=== PATIENT | female | born 1965 | race Two or more races ===

== ENCOUNTER 2020-10-09 09:15 | Emergency (ER) | payer MEDICAID, SELFPAY ==
[2020-10-09 09:21] VITALS: BP 136/70; PULSE 83; RESP 17; TEMP 36.7; O2SAT 95; BMI 37.8
--- NOTE | 2020-10-09 09:49 | ED.SKABFB ---
HPI - Skin/Abscess/Foreign Bdy General Chief complaint: Skin/Abscess/Foreign Body Stated complaint: cyst on leg Time Seen by Provider: 10/09/20 09:48 History of Present Illness HPI narrative: Patient complains of right thigh abscess with redness and swelling for several days, no fever no chills no joint pain Related Data Previous Rx's Medication Instructions Recorded doxycycline hyclate 100 mg PO BID 7 Days #14 cap 10/09/20 Allergies Allergy/AdvReac Type Severity Reaction Status Date / Time No Known Allergies Allergy Unverified 07/14/20 15:33 Pt states no known allergy to Allergy Unknown Uncoded 09/04/18 00:00 Review of Systems Review of Systems: No fever no chills no weakness no dizziness, no chest pain no abdominal pain no dysuria Yes all other systems are reviewed and are negative [facility] Past Medical History Source: nursing notes reviewed Medical History (Updated 10/09/20 @ 10:43 by SIOMARA Ricardo) Diabetes 1.5, managed as type 1 High blood pressure Social History Social History Advance Directives: No Advance Directives Information Provided: No Physical Exam Vital Signs: Vital Signs: Last Vital Signs Temp 98.0 F 10/09/20 09:21 Pulse 83 10/09/20 09:21 Resp 17 10/09/20 09:21 BP 136/70 10/09/20 09:21 Pulse Ox 95 10/09/20 09:21 Body Mass Index 37.8 Patient is A&O x3, no acute distress, cooperative Normocephalic atraumatic Neck is supple Respiratory no distress Abdomen soft nontender Extremity exam there is a red fluctuant cyst on the right upper inner thigh which is tender to the touch without surrounding redness, no surrounding cellulitis, skin is intact there is no discharge from the wound, there is full range of motion in the hip and the knee, neurovascular intact distal Course Course Course Narrative: Right thigh abscess is cleansed with Betadine Anesthesia is 8 cc of 1% lidocaine without epi A small incision was made with discharge of pus and packing was placed and dressing was applied Discharge Plan Discharge Clinical Impression: Abscess of skin or subcutaneous tissue Qualifiers: Site of cutaneous abscess: extremity Site of cutaneous abscess of extremity: lower extremity Laterality: right Qualified Code(s): L02.415 - Cutaneous abscess of right lower limb Patient Disposition: Home, Self-Care Additional Instructions: Return to ER in 2 days for packing removal and wound check Return any time for spreading redness, worse pain and swelling, fever, any worse condition or any concerns Prescriptions: New doxycycline hyclate 100 mg capsule 100 mg PO BID 7 Days Qty: 14 RF: 0
[2020-10-09] MEDS: Lidocaine HCl 1 % MPF 5 ML VIAL SUBCUT ×2 (10:01→10:02)
== END 2020-10-09 10:54 | disposition home or self-care (01) ==
PROVIDERS: Emergency Provider Emergency Medicine; PCP Family Medicine
DX: L02.415 Cutaneous abscess of right lower limb (principal); M79.651 Pain in right thigh
CPT/HCPCS: 10060; 99283; 99284

== ENCOUNTER 2020-10-11 08:32 | Emergency (ER) | payer MEDICAID, SELFPAY ==
[2020-10-11 08:40] VITALS: BP 99/69; PULSE 70; RESP 16; TEMP 36.6; O2SAT 97; BMI 37.8
--- NOTE | 2020-10-11 08:52 | PC.NURSE ---
ambulatory with steady/slow gait/movements, changing in to hospital gown for exam
--- NOTE | 2020-10-11 09:42 | ED.SKABFB ---
HPI - Skin/Abscess/Foreign Bdy General Chief complaint: Skin/Abscess/Foreign Body <Esther Lim NP - Last Filed: 10/11/20 09:44> Stated complaint: wound check <Esther Lim NP - Last Filed: 10/11/20 09:44> Time Seen by Provider: 10/11/20 09:19 <Esther Lim NP - Last Filed: 10/11/20 09:44> Source: patient <Esther Lim NP - Last Filed: 10/11/20 09:44> Mode of arrival: ambulatory <Esther Lim NP - Last Filed: 10/11/20 09:44> Limitations: no limitations <Esther Lim NP - Last Filed: 10/11/20 09:44> History of Present Illness HPI narrative: Pt seen here 2 days ago for I& D of an abscess. She had packing placed. She was started on doxycycline. She returns today for packing removal. No complaints. No fevers or chills. Patient is feeling improved. <Esther Lim NP - Last Filed: 10/11/20 09:44> MD complaint: abscess/boil <Esther Lim NP - Last Filed: 10/11/20 09:44> Onset (ago): day(s) <GILL Castillo Last Filed: 10/11/20 09:44> Tetanus up to date: yes <GILL Castillo Last Filed: 10/11/20 09:44> Location: generalized (Right groin) <GILL Castillo Last Filed: 10/11/20 09:44> Severity: mild <GILL Castillo Last Filed: 10/11/20 09:44> Associated symptoms: denies other symptoms <GILL Castillo Last Filed: 10/11/20 09:44> Treatments prior to arrival: none <GILL Castillo Last Filed: 10/11/20 09:44> Related Data Home medications: Previous Rx's Medication Instructions Recorded doxycycline hyclate 100 mg PO BID 7 Days #14 cap 10/09/20 <Esther Lim NP - Last Filed: 10/11/20 09:44> Allergies/Adverse reactions: Allergies Allergy/AdvReac Type Severity Reaction Status Date / Time No Known Allergies Allergy Unverified 07/14/20 15:33 Pt states no known allergy to Allergy Unknown Uncoded 09/04/18 00:00 <Esther Lim NP - Last Filed: 10/11/20 09:44> Review of Systems Review of Systems: Yes all other systems are reviewed and are negative <GILL Castillo Last Filed: 10/11/20 09:44> Constitutional: Constitutional: Reports no additional constitutional complaints, Denies body ache(s), Denies chills, Denies fever(s), Denies headache(s) and Denies weakness <GILL Castillo Last Filed: 10/11/20 09:44> Eyes: Eyes: Reports no additional eye complaints and Denies change in vision <Esther Lim NP - Last Filed: 10/11/20 09:44> ENT: Reports system reviewed and no additional complaints, except as documented, Denies dizziness, Denies headache(s), Denies nasal congestion, Denies nasal discharge and Denies neck pain <GILL Castillo Last Filed: 10/11/20 09:44> Cardiovascular: Cardiovascular: Reports no additional cardiovascular complaints, Denies chest pain, Denies leg edema and Denies dyspnea <GILL Castillo Last Filed: 10/11/20 09:44> Respiratory: Respiratory: Reports no additional respiratory complaints, Denies cough and Denies dyspnea <Esther Lim NP - Last Filed: 10/11/20 09:44> Gastrointestinal: Gastrointestinal: Reports no additional gastrointestinal complaints, Denies abdominal pain, Denies diarrhea, Denies nausea and Denies vomiting <Esther Lim NP - Last Filed: 10/11/20 09:44> Genitourinary: Genitourinary: Reports no additional female genitourinary complaints and Denies urinary incontinence <Esther Lim NP - Last Filed: 10/11/20 09:44> Musculoskeletal: Musculoskeletal: Reports no additional musculoskeletal complaints, Denies back pain, Denies arthralgias, Denies joint swelling, Denies neck pain, Denies numbness and Denies tingling <Esther Lim NP - Last Filed: 10/11/20 09:44> Integumentary/Breasts: Skin/Breast: Reports system reviewed and no additional complaints, except as docu and Denies rash <Esther Lim NP - Last Filed: 10/11/20 09:44> Neurologic: Reports system reviewed and no additional complaints, except as documented, Denies Abnormal speech present, Denies dizziness, Denies headache(s), Denies numbness, Denies tingling and Denies weakness <Esther Lim NP - Last Filed: 10/11/20 09:44> PMF Past Medical History Attestation statement: The following information was validated with the patient. <Esther Lim NP - Last Filed: 10/11/20 09:44> Source: old records reviewed and nursing notes reviewed <Esther Lim NP - Last Filed: 10/11/20 09:44> Medical History: Medical History Diabetes 1.5, managed as type 1 High blood pressure <Esther Lim NP - Last Filed: 10/11/20 09:44> Social History Social History: Social History Advance Directives: No Advance Directives Information Provided: No <Esther Lim NP - Last Filed: 10/11/20 09:44> Physical Exam Vital Signs: Vital Signs: Last Vital Signs Temp 97.9 F 10/11/20 08:40 Pulse 70 10/11/20 08:40 Resp 16 10/11/20 08:40 BP 99/69 10/11/20 08:40 Pulse Ox 97 10/11/20 08:40 Body Mass Index 37.8 <Esther Lim NP - Last Filed: 10/11/20 09:44> Vital Signs: Last Vital Signs Temp 97.9 F 10/11/20 08:40 Pulse 70 10/11/20 08:40 Resp 16 10/11/20 08:40 BP 99/69 10/11/20 08:40 Pulse Ox 97 10/11/20 08:40 Body Mass Index 37.8 <Thony Verdugo MD - Last Filed: 10/21/20 16:40> Const: General: cooperative, healthy appearing, comfortable and no acute distress <Esther Lim NP - Last Filed: 10/11/20 09:44> Orientation/consciousness: patient oriented x3 <Esther Lim NP - Last Filed: 10/11/20 09:44> Limitations: no limitations <Esther Lim NP - Last Filed: 10/11/20 09:44> HENMT: Head: Yes normal to inspection <Esther Lim NP - Last Filed: 10/11/20 09:44> Ears: hearing grossly normal bilaterally <Esther Lim NP - Last Filed: 10/11/20 09:44> General nose exam: Normal external nose present <Esther Lmi NP - Last Filed: 10/11/20 09:44> Face and sinus: Yes normal facial exam <Esther Lim NP - Last Filed: 10/11/20 09:44> Mouth: Normal oral and palatal mucosa present <Esther Lim NP - Last Filed: 10/11/20 09:44> Throat: Yes posterior oropharynx normal <Esther Lim NP - Last Filed: 10/11/20 09:44> Eyes: General: appearance normal, both eyes and all related structures <Esther Lim NP - Last Filed: 10/11/20 09:44> Pupils: Equal, round and reactive pupils present <Esther Lim NP - Last Filed: 10/11/20 09:44> Neck: Neck: Yes normal visual inspection <Esther Lim NP - Last Filed: 10/11/20 09:44> Chest: Chest palpation & inspection: normal inspection of the chest <Esther Lim NP - Last Filed: 10/11/20 09:44> Resp: Effort & Inspection: normal respiratory effort <Esther Lim NP - Last Filed: 10/11/20 09:44> Auscultation: clear to auscultation bilaterally <Esther Lim NP - Last Filed: 10/11/20 09:44> Cardio: Rate: regular rate <Esther Lim NP - Last Filed: 10/11/20 09:44> Rhythm: regular rhythm <Esther Lim NP - Last Filed: 10/11/20 09:44> Peripheral pulses: Peripheral pulses 2+ throughout <Esther Lim NP - Last Filed: 10/11/20 09:44> GI: Inspection: Yes normal to inspection <Esther Lim NP - Last Filed: 10/11/20 09:44> Palpation (GI): Soft to palpation and nontender <Esther Lim NP - Last Filed: 10/11/20 09:44> Auscultation: normal bowel sounds <Esther Lim NP - Last Filed: 10/11/20 09:44> Back/Spine/Pelvis: Thoracic/Lumbar Spine: thoracic and lumbar spine normal to inspection <Esther Lim NP - Last Filed: 10/11/20 09:44> Skin: Other: To the right upper inner groin there is a healing abscess. There is some mild surrounding erythema with no drainage able to be expressed. There is no induration. <Esther Lim NP - Last Filed: 10/11/20 09:44> General skin exam: no rashes or lesions noted <Esther Lim NP - Last Filed: 10/11/20 09:44> Neuro: General: patient oriented x3, no focal motor deficits and normal sensation to monofilament <Esther Lim NP - Last Filed: 10/11/20 09:44> Cranial nerves: Yes Equal, round and reactive pupils present <Esther Lim NP - Last Filed: 10/11/20 09:44> Cognition (Neuro): normal cognition <Esther Lim NP - Last Filed: 10/11/20 09:44> Speech: No Abnormal speech present <GILL Castillo Last Filed: 10/11/20 09:44> Gait exam (Neuro): Normal gait present <Esther Lim NP - Last Filed: 10/11/20 09:44> Motor exam (neuro): 5/5 motor strength present throughout <GILL Castillo Last Filed: 10/11/20 09:44> Extrem: General: Yes normal to inspection <GILL Castillo Last Filed: 10/11/20 09:44> Course Course Course Narrative: Healing abscess. Packing removed. Patient to continue her antibiotics. Reviewed worrisome signs and symptoms and when to return to the emergency department. Comfortable discharge home. <IGLL Castillo Last Filed: 10/11/20 09:44> I have reviewed the chart <Thony Verdugo MD - Last Filed: 10/21/20 16:40> Procedures Procedure Narrative Procedure Narrative: Packing removed from abscess. Mild erythema and induration noted to the site. No fluctuance or drainage. <GILL Castillo Last Filed: 10/11/20 09:44> Discharge Plan Discharge Clinical Impression: Abscess of skin or subcutaneous tissue <GILL Castillo Last Filed: 10/11/20 09:44> Patient Disposition: Home, Self-Care <GILL Castillo Last Filed: 10/11/20 09:44> Instructions: Abscess Follow-up (ED) <GILL Castillo Last Filed: 10/11/20 09:44> Additional Instructions: Continue your antibiotics Remove dressing tonight when showering and wash with soap and water You may apply a bandaid after that <GILL Castillo Last Filed: 10/11/20 09:44> Prescriptions: No Action doxycycline hyclate 100 mg capsule 100 mg PO BID 7 Days Qty: 14 RF: 0 <GILL Castillo Last Filed: 10/11/20 09:44> Referrals: Nahomy Patino DO [Primary Care Provider] - 2 days <Esther Lim NP - Last Filed: 10/11/20 09:44> Interventions: ED Discharge Assessment Last Done: 10/11/20 09:29 <Esther Lim NP - Last Filed: 10/11/20 09:44> Discharge Date/Time: 10/11/20 09:25 <Esther Lim NP - Last Filed: 10/11/20 09:44>
== END 2020-10-11 09:25 | disposition home or self-care (01) ==
PROVIDERS: Emergency Provider Emergency Medicine; PCP Family Medicine
DX: L02.214 Cutaneous abscess of groin (principal); Z48.00 Encounter for change or removal of nonsurgical wound dressing
CPT/HCPCS: 99284

== ENCOUNTER → 2020-12-20 12:52 | Outpatient (BNVA) | payer MEDICAID, SELFPAY | PROVIDERS: PCP Family Medicine; Visit Provider Orthopaedic Surgery | DX: M22.2X2 Patellofemoral disorders, left knee (principal); M22.2X1 Patellofemoral disorders, right knee | CPT/HCPCS: 20610; 99202; J1040 ==

== ENCOUNTER → 2021-01-02 13:28 | Outpatient (BNVA) | payer MEDICAID, SELFPAY | PROVIDERS: PCP Family Medicine; Visit Provider Nurse Practitioner Family | DX: M53.3 Sacrococcygeal disorders, not elsewhere classified (principal); M47.27 Other spondylosis with radiculopathy, lumbosacral region; Z79.899 Other long term (current) drug therapy | CPT/HCPCS: 99202 ==

== ENCOUNTER 2021-01-18 12:43 | Outpatient (REF) | payer MEDICAID, SELFPAY ==
--- NOTE | ~2021-01-18 | MR_ITS ---
EXAMINATION: MR LUMBAR SPINE WITHOUT CONTRAST CLINICAL INFORMATION: 55-year-old with chronic low back and bilateral leg pain, left more than right. Spondylosis with radiculopathy, lumbosacral region. COMPARISON: 05/27/2018 TECHNIQUE: MRI of the lumbar spine was obtained using routine sequences without contrast. FINDINGS: CORONAL ALIGNMENT:?Slight lower lumbar levocurvature noted. SAGITTAL ALIGNMENT:?Normal. LUMBOSACRAL JUNCTION:?Normal. VERTEBRAL BODIES: Normal height. BONE MARROW: No significant marrow-replacing process or bone marrow edema. CONUS MEDULLARIS:?Terminates at L1.?Morphology and signal is normal. INTRADURAL NERVE ROOTS: Within normal limits. L5-S1: Disc space height and signal are well maintained with no significant disc bulge. Subtle right-sided foraminal disc osteophyte complex stable in appearance with labl-rr-[id number] facet arthropathy, right more than left unchanged with mild right-sided foraminal narrowing without significant canal stenosis stable in appearance. L4-L5: Disc space height is well maintained with minimal disc desiccation stable in appearance. Tiny left subarticular disc protrusion stable in appearance. Small inferior foraminal disc protrusion without neural impingement, which is a new finding. Moderate right-sided and mild left-sided facet arthropathy and mild ligamentum flavum thickening is stable in appearance without significant canal or neural foraminal stenosis. L3-L4: Fdlm-gv-ofepaspb loss of disc space height and mild disc desiccation are again noted with minor anterior marginal spondylosis. Mild left lateral foraminal/extraforaminal disc protrusion again noted which contacts the exiting left L3 nerve root unchanged with associated moderate left-sided foraminal stenosis stable in appearance. Small inferior foraminal disc protrusion on the right at this level is a new finding without neural impingement. Timx-de-ibvsicqy bilateral facet arthropathy is stable without significant canal stenosis. Mild right-sided foraminal stenosis is noted on current study. L2-L3: Disc space height and signal are well maintained with no significant disc bulge or herniation and no significant spondylosis, facet arthrosis, canal or neural foraminal stenosis stable in appearance. L1-L2: Disc space height and signal well maintained without significant disc bulge or herniation and no significant spondylosis, facet arthrosis, canal or neural foraminal stenosis. PARASPINAL/RETROPERITONEAL: The paravertebral soft tissues appear unremarkable. MR/MR lumbar spine wo con IMPRESSION: 1. Stable discogenic degenerative changes at L3-L4 and to a lesser degree at L4-L5 with stable mild degrees of spondylosis at these levels and stable multilevel facet arthropathy. 2. Small right foraminal disc osteophyte complex at L5-S1 without neural impingement unchanged. Tiny left subarticular disc protrusion at L4-L5 unchanged in appearance and a new inferior foraminal disc protrusion on the right at this level with new mild foraminal narrowing without neural impingement. 3. Left lateral foraminal/extraforaminal disc protrusion at L3-L4 stable in appearance with moderate associated left-sided foraminal narrowing which contacts the exiting left L3 nerve root unchanged and a new inferior foraminal disc protrusion on the right at this level with mild right-sided foraminal narrowing without neural impingement.
== END 2021-01-18 12:44 | disposition home or self-care (01) ==
LOC: HO.MRI 12:43
PROVIDERS: Visit Provider Anesthesiology
DX: M47.27 Other spondylosis with radiculopathy, lumbosacral region (principal)
CPT/HCPCS: 72148

== ENCOUNTER → 2021-02-14 15:20 | Outpatient (BNVA) | payer MEDICAID, SELFPAY | PROVIDERS: PCP Family Medicine; Visit Provider Nurse Practitioner Family ==

== ENCOUNTER 2021-03-14 06:58 | Outpatient (REF) | payer MEDICAID, SELFPAY ==
--- NOTE | ~2021-03-14 | FL_ITS ---
EXAMINATION: XR FLUOROSCOPY WITH IMAGES CLINICAL INFORMATION: M47.816 - Spondylosis without myelopathy or radiculopathy COMPARISON: MR lumbar spine TECHNIQUE: Fluoroscopy performed by Mary Eid NP. Fluoroscopy time: 0.8 minutes DAP: 12.7 Gycm2 Images: 6 FINDINGS: There are spinal needles overlying the outer aspects of the bilateral L3, L4, and L5 neural foramen. Contrast is seen in the respective nerve sheaths with some transforaminal epidural extension. No visible vascular communication. FL/FL guidance in treatment room IMPRESSION: Fluoroscopy for pain management procedures.
== END 2021-03-14 06:59 | disposition home or self-care (01) ==
LOC: HO.RADIR 06:58
PROVIDERS: Visit Provider Anesthesiology
DX: M47.816 Spondylosis without myelopathy or radiculopathy, lumbar region (principal); M53.3 Sacrococcygeal disorders, not elsewhere classified; M47.27 Other spondylosis with radiculopathy, lumbosacral region; Z79.899 Other long term (current) drug therapy
CPT/HCPCS: 64493; 64494; 64495; Q9967

== ENCOUNTER → 2021-03-21 15:58 | Outpatient (BNVA) | payer MEDICAID, SELFPAY | PROVIDERS: PCP Family Medicine; Visit Provider Nurse Practitioner Family ==

== ENCOUNTER 2021-06-12 11:21 | Emergency (ER) | payer MEDICAID, SELFPAY ==
[2021-06-12 12:13] VITALS: BP 111/57; PULSE 78; RESP 18; TEMP 36.8; O2SAT 96; BMI 35.9
--- NOTE | 2021-06-12 13:42 | ED.SKABFB ---
HPI - Skin/Abscess/Foreign Bdy General Chief complaint: Skin/Abscess/Foreign Body Stated complaint: cyst Time Seen by Provider: 06/12/21 13:28 History of Present Illness HPI narrative: Patient complains of red swollen painful area right upper inner posterior thigh for a week, similar to prior abscess in the same area no fever no chills Related Data Home Medications Medication Instructions Recorded Confirmed atorvastatin 20 mg tablet (Lipitor) 20 mg PO BEDTIME 01/02/21 03/21/21 cholecalciferol (vitamin D3) 50 50 mcg PO DAILY 01/02/21 03/21/21 mcg (2,000 unit) capsule citalopram 20 mg tablet (Celexa) 20 mg PO DAILY 01/02/21 03/21/21 fluticasone propionate 50 2 spray INTRANASAL DAILY 01/02/21 03/21/21 mcg/actuation nasal spray,suspension (Flonase Allergy Relief) gabapentin 300 mg capsule 600 mg PO BID cap 01/02/21 03/21/21 glipizide 5 mg tablet 5 mg PO BID 01/02/21 03/21/21 hydrochlorothiazide 25 mg tablet 25 mg PO DAILY 01/02/21 03/21/21 lisinopril 40 mg tablet 40 mg PO DAILY 01/02/21 03/21/21 loratadine 10 mg tablet (Claritin) 10 mg PO DAILY 01/02/21 03/21/21 metformin 1,000 mg tablet 1,000 mg PO BID 01/02/21 03/21/21 naloxone 4 mg/actuation nasal 1 spray INTRANASAL Q2M 01/02/21 03/21/21 spray (Narcan) oxcarbazepine 150 mg tablet 150 mg PO BID 01/02/21 03/21/21 oxycodone-acetaminophen 5 mg-325 1 tab PO Q6H PRN 01/02/21 03/21/21 mg tablet (Percocet) tizanidine 2 mg capsule 2 mg PO Q8H PRN 01/02/21 03/21/21 Previous Rx's Medication Instructions Recorded cephalexin 500 mg tablet 500 mg PO QID 7 Days #28 tab 06/12/21 cephalexin 500 mg tablet 500 mg PO QID 7 Days #28 tab 06/12/21 doxycycline hyclate 100 mg capsule 100 mg PO BID 7 Days #14 cap 08/16/21 doxycycline hyclate 100 mg capsule 100 mg PO BID 7 Days #14 cap 06/12/21 Allergies Allergy/AdvReac Type Severity Reaction Status Date / Time No Known Allergies Allergy Verified 03/21/21 15:58 Review of Systems Review of Systems: Positive for right thigh abscess Negatives are no fever no chills no dizziness no headache no neck pain no stiff neck no numbness or weakness, no joint pains no joint swelling no other rash Yes all other systems are reviewed and are negative PMFSH Past Medical History Source: nursing notes reviewed Medical History Diabetes 1.5, managed as type 1 High blood pressure Social History Social History (Updated 12/20/20 @ 13:30 by Latricia Gregorio CMA) Advance Directives: No Advance Directives Information Provided: No Patient : No Current occupational status: disabled Current occupation: Right Handed Physical Exam Vital Signs: Vital Signs: Last Vital Signs Temp 98.3 F 06/12/21 12:13 Pulse 78 06/12/21 12:13 Resp 18 06/12/21 12:13 BP 111/57 L 06/12/21 12:13 Pulse Ox 96 06/12/21 12:13 Body Mass Index 35.9 General appearance no acute distress Head is normocephalic atraumatic Neck is supple Respiratory no distress Abdomen soft nontender Extremities full range of motion x4 Skin exam right posterior upper thigh has an area of redness fluctuance and swelling as well as tenderness with some surrounding erythema, full range of motion at hip knee and the leg is neurovascular intact distal Course Course Course Narrative: Right thigh abscess no The abscess is cleansed with Betadine Anesthesia is 8 cc of 1% lidocaine Incision is made with discharge of pus, probed with forceps to break up loculations and packing is placed As there was surrounding erythema the patient was treated with double antibiotic coverage and will return in 2 days for recheck Discharge Plan Discharge Clinical Impression: Abscess Patient Disposition: Home, Self-Care Additional Instructions: Return to ER in 2 days for packing removal wound check Use antibiotics as directed Return any time for spreading redness, worse pain and swelling, any worse condition or any concerns Prescriptions: New doxycycline hyclate 100 mg capsule 100 mg PO BID 7 Days Qty: 14 RF: 0 cephalexin 500 mg tablet 500 mg PO QID 7 Days Qty: 28 RF: 0 doxycycline hyclate 100 mg capsule 100 mg PO BID 7 Days Qty: 14 RF: 0 cephalexin 500 mg tablet 500 mg PO QID 7 Days Qty: 28 RF: 0 No Action loratadine [Claritin] 10 mg tablet 10 mg PO DAILY RF: 0 tizanidine 2 mg capsule 2 mg PO Q8H PRNRF: 0 Narcan 4 mg/actuation spray,non-aerosol 1 spray intranasal Q2M RF: 0 fluticasone propionate [Flonase Allergy Relief] 50 mcg/actuation spray,suspension 2 spray intranasal DAILY RF: 0 hydrochlorothiazide 25 mg tablet 25 mg PO DAILY RF: 0 glipizide 5 mg tablet 5 mg PO BID RF: 0 metformin 1,000 mg tablet 1,000 mg PO BID RF: 0 lisinopril 40 mg tablet 40 mg PO DAILY RF: 0 gabapentin 300 mg capsule 600 mg PO BID RF: 0 citalopram [Celexa] 20 mg tablet 20 mg PO DAILY RF: 0 atorvastatin [Lipitor] 20 mg tablet 20 mg PO BEDTIME RF: 0 cholecalciferol (vitamin D3) 50 mcg (2,000 unit) capsule 50 mcg PO DAILY RF: 0 oxcarbazepine 150 mg tablet 150 mg PO BID RF: 0 oxycodone-acetaminophen [Percocet] 5-325 mg tablet 1 tab PO Q6H PRNRF: 0 Interventions: ED Discharge Assessment Last Done: 06/12/21 14:55 Discharge Date/Time: 06/12/21 14:56
[2021-06-12] MEDS: Lidocaine HCl 1 % MPF 5 ML VIAL SUBCUT ×2 (13:49)
[2021-06-12] MEDS: cephALEXin 500 MG CAPSULE PO (14:45)
[2021-06-12] MEDS: oxyCODONE HCl Immed Release 5 MG TABLET 10 MG PO (14:45)
== END 2021-06-12 14:56 | disposition home or self-care (01) ==
PROVIDERS: Emergency Provider Internal Medicine; PCP Family Medicine
DX: L02.415 Cutaneous abscess of right lower limb (principal); E10.9 Type 1 diabetes mellitus without complications
CPT/HCPCS: 10060; 99283; 99284

== ENCOUNTER 2021-06-13 06:12 | Outpatient (REF) | payer MEDICAID, SELFPAY | END 2021-06-13 06:13 | disposition home or self-care (01) | LOC: HO.RADIR 06:12 | PROVIDERS: Visit Provider Anesthesiology | DX: Z13.89 Encounter for screening for other disorder (principal) ==

== ENCOUNTER 2021-06-14 13:06 | Emergency (ER) | payer MEDICAID, SELFPAY ==
[2021-06-14 13:43] VITALS: BP 141/96; PULSE 87; RESP 18; TEMP 36.8; O2SAT 96; BMI 35.9
--- NOTE | 2021-06-14 16:35 | ED.WOUNDLAC ---
HPI - Wound/Laceration General Chief Complaint: Wound/Laceration Stated Complaint: wound check Time Seen by Provider: 06/14/21 15:55 Source: patient Mode of arrival: ambulatory Limitations: no limitations History of Present Illness HPI narrative: 56-year-old female presents for wound check. Had an abscess drain to the right inner thigh on Saturday with iodoform packing. She does not report any concerning findings but states that the area still quite tender. She has been taking antibiotics Keflex 4 times a day and doxycycline twice a day. Onset (ago): day(s) Extremity Location: right: thigh Patient tetanus UTD: Yes Associated symptoms: pain Treatments prior to arrival: bandage Related Data Home Medications Medication Instructions Recorded Confirmed atorvastatin 20 mg tablet (Lipitor) 20 mg PO BEDTIME 01/02/21 03/21/21 cholecalciferol (vitamin D3) 50 50 mcg PO DAILY 01/02/21 03/21/21 mcg (2,000 unit) capsule citalopram 20 mg tablet (Celexa) 20 mg PO DAILY 01/02/21 03/21/21 fluticasone propionate 50 2 spray INTRANASAL DAILY 01/02/21 03/21/21 mcg/actuation nasal spray,suspension (Flonase Allergy Relief) gabapentin 300 mg capsule 600 mg PO BID cap 01/02/21 03/21/21 glipizide 5 mg tablet 5 mg PO BID 01/02/21 03/21/21 hydrochlorothiazide 25 mg tablet 25 mg PO DAILY 01/02/21 03/21/21 lisinopril 40 mg tablet 40 mg PO DAILY 01/02/21 03/21/21 loratadine 10 mg tablet (Claritin) 10 mg PO DAILY 01/02/21 03/21/21 metformin 1,000 mg tablet 1,000 mg PO BID 01/02/21 03/21/21 naloxone 4 mg/actuation nasal 1 spray INTRANASAL Q2M 01/02/21 03/21/21 spray (Narcan) oxcarbazepine 150 mg tablet 150 mg PO BID 01/02/21 03/21/21 oxycodone-acetaminophen 5 mg-325 1 tab PO Q6H PRN 01/02/21 03/21/21 mg tablet (Percocet) tizanidine 2 mg capsule 2 mg PO Q8H PRN 01/02/21 03/21/21 Previous Rx's Medication Instructions Recorded cephalexin 500 mg tablet 500 mg PO QID 7 Days #28 tab 06/12/21 cephalexin 500 mg tablet 500 mg PO QID 7 Days #28 tab 06/12/21 doxycycline hyclate 100 mg capsule 100 mg PO BID 7 Days #14 cap 06/12/21 doxycycline hyclate 100 mg capsule 100 mg PO BID 7 Days #14 cap 06/12/21 Allergies Allergy/AdvReac Type Severity Reaction Status Date / Time No Known Allergies Allergy Verified 06/14/21 13:43 Review of Systems Review of Systems: Constitutional: No Fever, No Chills ENT/Mouth: No Ear Pain, No Hoarseness, No sore throat Eyes: No Eye Pain, No Swelling, No Redness, No Foreign Body Cardiovascular: No Chest Pain, No SOB Respiratory: No Cough, No Dyspnea Gastrointestinal: No Nausea, No Vomiting, No Diarrhea, No abdominal Pain Genitourinary: No Dysuria, No Hematuria Musculoskeletal: positive right inner thigh pain, No Myalgias, No Joint Swelling Skin: Positive iodoform packing to the right inner thigh, No Skin lacerations, No rash Neuro: No Weakness, No Numbness, No Paresthesias, No Loss of Consciousness, No Dizziness, No Headache Psych: No Anxiety/Panic, No Depression Heme/Lymph: no easy bruising, no Lymphadenopathy Endocrine: No Polyuria, No Polydipsia Yes all other systems are reviewed and are negative [facility] Past Medical History Attestation statement: The following information was validated with the patient. Source: old records reviewed Medical History Arthritis Cyst Diabetes 1.5, managed as type 1 High blood pressure Social History Social History Advance Directives: No Advance Directives Information Provided: Yes Patient : No Current occupational status: disabled Current occupation: Right Handed Physical Exam Vital Signs: Vital Signs: Last Vital Signs Temp 98.3 F 06/14/21 13:43 Pulse 87 06/14/21 13:43 Resp 18 06/14/21 13:43 BP 141/96 H 06/14/21 13:43 Pulse Ox 96 06/14/21 13:43 Body Mass Index 35.9 Appearance: Alert. Oriented X3. No acute distress. Eyes: Pupils equal, round and reactive to light. ENT: Pharynx normal. Neck: Normal inspection. Neck supple. CVS: Normal heart rate and rhythm. Pulses normal. Respiratory: No respiratory distress. Breath sounds normal. Abdomen: Soft and nontender. Skin: Surgical incision draining to the right inner thigh, iodoform packing in place, Skin warm and dry. Normal skin color. Normal skin turgor. Extremities: No lower extremity edema. Neuro: No motor deficit. No sensory deficit. Course Course Course Narrative: Iodoform for packing in place. Drainage noted, non purulent nonodorous minimal heme. Dressing removed without difficulty. Patient will continue with antibiotics. Brisk capillary refill in equal pulses noted bilateral lower extremities. No inguinal adenopathy noted. Patient is afebrile, appears nontoxic, vital signs are within normal limits with the exception of her blood pressure which she does have high blood pressure. Patient was advised to return if symptoms persist or get worse. Patient verbalized understanding of and agrees plan of care discharge home. MDM - Wound/Laceration Differential Diagnosis Differential diagnosis: Likely abscess Medical Records Attestation: I reviewed the patient's medical records. Lab Data Attestation: I reviewed the patient's lab results. Discharge Plan Discharge Clinical Impression: Abscess Patient Disposition: Home, Self-Care Instructions: Abscess Follow-up (ED) Additional Instructions: We removed your iodoform packing today. Please return if any symptoms persist or get worse. Continue to take your antibiotics as directed. Do not swim or soak in water until the wound heals. Thank you for choosing this emergency department for evaluation. Please follow-up with primary care physician as needed. Return to the emergency department for any new, concerning, or worsening symptoms. Prescriptions: No Action doxycycline hyclate 100 mg capsule 100 mg PO BID 7 Days Qty: 14 RF: 0 cephalexin 500 mg tablet 500 mg PO QID 7 Days Qty: 28 RF: 0 doxycycline hyclate 100 mg capsule 100 mg PO BID 7 Days Qty: 14 RF: 0 cephalexin 500 mg tablet 500 mg PO QID 7 Days Qty: 28 RF: 0 loratadine [Claritin] 10 mg tablet 10 mg PO DAILY RF: 0 tizanidine 2 mg capsule 2 mg PO Q8H PRNRF: 0 Narcan 4 mg/actuation spray,non-aerosol 1 spray intranasal Q2M RF: 0 fluticasone propionate [Flonase Allergy Relief] 50 mcg/actuation spray,suspension 2 spray intranasal DAILY RF: 0 hydrochlorothiazide 25 mg tablet 25 mg PO DAILY RF: 0 glipizide 5 mg tablet 5 mg PO BID RF: 0 metformin 1,000 mg tablet 1,000 mg PO BID RF: 0 lisinopril 40 mg tablet 40 mg PO DAILY RF: 0 gabapentin 300 mg capsule 600 mg PO BID RF: 0 citalopram [Celexa] 20 mg tablet 20 mg PO DAILY RF: 0 atorvastatin [Lipitor] 20 mg tablet 20 mg PO BEDTIME RF: 0 cholecalciferol (vitamin D3) 50 mcg (2,000 unit) capsule 50 mcg PO DAILY RF: 0 oxcarbazepine 150 mg tablet 150 mg PO BID RF: 0 oxycodone-acetaminophen [Percocet] 5-325 mg tablet 1 tab PO Q6H PRNRF: 0
== END 2021-06-14 16:53 | disposition home or self-care (01) ==
PROVIDERS: Emergency Provider Emergency Medicine; PCP Family Medicine
DX: Z48.00 Encounter for change or removal of nonsurgical wound dressing (principal)
CPT/HCPCS: 99283

== ENCOUNTER 2021-06-26 09:27 | Emergency (ER) | payer MEDICAID, SELFPAY ==
[2021-06-26 09:35] VITALS: BP 126/67; PULSE 92; RESP 17; TEMP 36.1; O2SAT 95; BMI 34.9
--- NOTE | 2021-06-26 09:44 | ED.BACK ---
HPI - Back Pain/Injury General Chief Complaint: Back Pain/Injury Stated Complaint: BACK PAIN Time Seen by Provider: 06/26/21 09:43 Source: patient Mode of arrival: ambulatory Limitations: no limitations History of Present Illness HPI Narrative: 56 y/o female with history of HTN, HLD, NOEL, depression, diabetes, chronic low back pain on chronic opiates who presents to the ER with acute worsening of her lower back pain for the last 3 days after she moved her 's recliner. She has been taking her prescribed oxycodone with only brief improvement. She reports the pain is in her left lower back, left buttock and radiates down her left leg to the knee. She is having trouble sleeping at night and finding a comfortable position. She follows with pain management and had injections in her back early in the Summer. She is planning to see another Pain Specialist in [place] through her PCP. She denies saddle parestheisa, LE weakness, or any bowel/bladder incontinence. MD elicited complaint: back pain and back injury Pertinent past history: prior back pain Onset (ago): day(s) (3) Timing: constant Severity: severe Pain scale (0-10): 9 Similar Symptoms Previously: Yes Quality: stabbing, aching and throbbing Location: left lower back Radiation: buttocks and left upper leg Exacerbating factors: movement Relieving factors: medication Context: while lifting and turning/twisting Associated symptoms: difficulty walking, arthralgias and myalgias Treatments prior to arrival: other medications Work related injury: No Related Data Home Medications Medication Instructions Recorded Confirmed atorvastatin 20 mg tablet (Lipitor) 20 mg PO BEDTIME 01/02/21 03/21/21 cholecalciferol (vitamin D3) 50 50 mcg PO DAILY 01/02/21 03/21/21 mcg (2,000 unit) capsule citalopram 20 mg tablet (Celexa) 20 mg PO DAILY 01/02/21 03/21/21 fluticasone propionate 50 2 spray INTRANASAL DAILY 01/02/21 03/21/21 mcg/actuation nasal spray,suspension (Flonase Allergy Relief) gabapentin 300 mg capsule 600 mg PO BID cap 01/02/21 03/21/21 glipizide 5 mg tablet 5 mg PO BID 01/02/21 03/21/21 hydrochlorothiazide 25 mg tablet 25 mg PO DAILY 01/02/21 03/21/21 lisinopril 40 mg tablet 40 mg PO DAILY 01/02/21 03/21/21 loratadine 10 mg tablet (Claritin) 10 mg PO DAILY 01/02/21 03/21/21 metformin 1,000 mg tablet 1,000 mg PO BID 01/02/21 03/21/21 naloxone 4 mg/actuation nasal 1 spray INTRANASAL Q2M 01/02/21 03/21/21 spray (Narcan) oxcarbazepine 150 mg tablet 150 mg PO BID 01/02/21 03/21/21 oxycodone-acetaminophen 5 mg-325 1 tab PO Q6H PRN 01/02/21 03/21/21 mg tablet (Percocet) tizanidine 2 mg capsule 2 mg PO Q8H PRN 01/02/21 03/21/21 Previous Rx's Medication Instructions Recorded cephalexin 500 mg tablet 500 mg PO QID 7 Days #28 tab 06/12/21 cephalexin 500 mg tablet 500 mg PO QID 7 Days #28 tab 06/12/21 doxycycline hyclate 100 mg capsule 100 mg PO BID 7 Days #14 cap 06/12/21 doxycycline hyclate 100 mg capsule 100 mg PO BID 7 Days #14 cap 06/12/21 cyclobenzaprine 10 mg tablet 10 mg PO TID PRN #10 tab 06/26/21 lidocaine 5 % topical patch 1 patch TOPICAL DAILY #15 ea 06/26/21 (Lidoderm) prednisone 20 mg tablet 40 mg PO DAILY #8 tab 06/26/21 Allergies Allergy/AdvReac Type Severity Reaction Status Date / Time No Known Allergies Allergy Verified 06/14/21 13:43 Review of Systems Constitutional: Constitutional: Denies chills, Denies fever(s) and Denies headache(s) Eyes: Eyes: Reports no additional eye complaints ENT: Denies headache(s) and Denies neck pain Cardiovascular: Cardiovascular: Denies chest pain and Denies dyspnea Respiratory: Respiratory: Denies dyspnea Gastrointestinal: Gastrointestinal: Denies abdominal pain Genitourinary: Genitourinary: Denies hematuria and Denies dysuria Musculoskeletal: Musculoskeletal: Reports abnormal gait, Reports back pain, Reports myalgias, Reports arthralgias, Denies neck pain, Denies numbness and Denies tingling Neurologic: Reports abnormal gait, Denies headache(s), Denies focal weakness, Denies numbness, Reports radicular pain, Denies tingling and Denies paresthesias Psychiatric: Psychiatric: Reports anxiety and Reports depression [facility] Past Medical History Medical History Arthritis Cyst Diabetes 1.5, managed as type 1 High blood pressure Social History Social History Advance Directives: No Advance Directives Information Provided: No Patient : No Current occupational status: disabled Current occupation: Right Handed Physical Exam Vital Signs: Vital Signs: Last Vital Signs Temp 97.0 F 06/26/21 09:35 Pulse 92 06/26/21 09:35 Resp 17 06/26/21 09:35 BP 126/67 06/26/21 09:35 Pulse Ox 95 06/26/21 09:35 Body Mass Index 34.9 Const: General: cooperative and acute distress (appears to be in pain, tearful) mild Nutritional Appearance: overweight Orientation/consciousness: patient oriented x3 Limitations: no limitations HENMT: Head: Yes normal to inspection, Yes normocephalic and Yes atraumatic Ears: hearing grossly normal bilaterally and external ears normal General nose exam: Normal external nose present and Normal nares present Face and sinus: Yes normal facial exam and Yes face symmetric Mouth: Normal oral and palatal mucosa present, lip normal and tongue normal Eyes: General: appearance normal, both eyes and all related structures Neck: Neck: Yes normal visual inspection and Yes full ROM Chest: Chest palpation & inspection: normal inspection of the chest Resp: Effort & Inspection: normal respiratory effort and able to speak in complete sentences : General: Yes no CVA tenderness Back/Spine/Pelvis: Back: no CVA tenderness Cervical Spine: normal cervical lordosis and cervical ROM normal Thoracic/Lumbar Spine: thoracic and lumbar spine normal to inspection, paraspinal muscle tenderness on the left in the upper thoracic, in the mid lumbar and in the lower lumbar, thoraco-lumbar ROM limited with rotation to the right and with rotation to the left, No lumbar spinal tenderness and straight leg raise positive left at 40 degrees Pelvis: no pain with anterior-posterior compression Sacroiliac joints: on the left tender to palpation Skin: General skin exam: no rashes or lesions noted Neuro: General: patient oriented x3, tone normal and moves all extremities Extrem: General: Yes normal to inspection, Yes full ROM and Yes no pedal edema Psych: Appearance: grossly normal and well kempt Mental Status: mental status grossly normal Speech and movement: Normal speech and movement present Affect: normal affect Course Course Course Narrative: 56 y/o female presenting with acute on chronic low back pain after moving furniture in her home 3 days ago. Seems to be exacerbation of her chronic pain with irritation or inflammation of the sciatic nerve with radiating pain down her leg. She has no red flag symptoms of LBP. Will treat with course of steroids and muscle relaxer. She is already prescribed 112 oxycodone tablets per month. She was encouraged to f/u with her PCP and Pain specialist. She has not seen a neurosurgeon to discuss surgical option and this was encouraged as well. Will give dose of IM toradol, oxycodone, prednisone and flexeril here and reassess pain. Reevaluation(s) Reevaluation #1: Pain is improved. She is stable for discharge home with outpatient follow up. Discharge Plan Discharge Clinical Impression: Lumbar radiculopathy Patient Disposition: Home, Self-Care Instructions: Lumbar Radiculopathy (ED), Lower Back Exercises (ED) Additional Instructions: No bending, lifting or twisting. Use ice several times per day for 20 minutes at a time for the next 48 hours and then change to heat. Take medications as prescribed to help with pain and discomfort. Start the prednisone tomorrow, you were given the 1st dose in the ER today. This may make your sugars go up, so monitor them closely and you may need increased insulin for a short time while you are on them. Follow up with your Primary Care Doctor this week. If your pain worsens, if you develop new numbness, tingling, weakness, loss of function or incontinence call 911 or come back to the ER right away for evaluation. Prescriptions: New cyclobenzaprine 10 mg tablet 10 mg PO TID PRN (Reason: muscle spasm) Qty: 10 RF: 0 prednisone 20 mg tablet 40 mg PO DAILY Qty: 8 RF: 0 lidocaine [Lidoderm] 5 % adhesive patch,medicated 1 patch topical DAILY Qty: 15 RF: 0 No Action doxycycline hyclate 100 mg capsule 100 mg PO BID 7 Days Qty: 14 RF: 0 cephalexin 500 mg tablet 500 mg PO QID 7 Days Qty: 28 RF: 0 doxycycline hyclate 100 mg capsule 100 mg PO BID 7 Days Qty: 14 RF: 0 cephalexin 500 mg tablet 500 mg PO QID 7 Days Qty: 28 RF: 0 loratadine [Claritin] 10 mg tablet 10 mg PO DAILY RF: 0 tizanidine 2 mg capsule 2 mg PO Q8H PRNRF: 0 Narcan 4 mg/actuation spray,non-aerosol 1 spray intranasal Q2M RF: 0 fluticasone propionate [Flonase Allergy Relief] 50 mcg/actuation spray,suspension 2 spray intranasal DAILY RF: 0 hydrochlorothiazide 25 mg tablet 25 mg PO DAILY RF: 0 glipizide 5 mg tablet 5 mg PO BID RF: 0 metformin 1,000 mg tablet 1,000 mg PO BID RF: 0 lisinopril 40 mg tablet 40 mg PO DAILY RF: 0 gabapentin 300 mg capsule 600 mg PO BID RF: 0 citalopram [Celexa] 20 mg tablet 20 mg PO DAILY RF: 0 atorvastatin [Lipitor] 20 mg tablet 20 mg PO BEDTIME RF: 0 cholecalciferol (vitamin D3) 50 mcg (2,000 unit) capsule 50 mcg PO DAILY RF: 0 oxcarbazepine 150 mg tablet 150 mg PO BID RF: 0 oxycodone-acetaminophen [Percocet] 5-325 mg tablet 1 tab PO Q6H PRNRF: 0 Referrals: Nahomy Patino DO [Primary Care Provider] - 1 day
[2021-06-26] MEDS: Ketorolac Tromethamine 15 MG/ML VIAL 30 MG IM (10:31)
[2021-06-26] MEDS: oxyCODONE HCl Immed Release 5 MG TABLET 10 MG PO (10:32)
[2021-06-26] MEDS: predniSONE 10 MG TABLET 50 MG PO (10:32)
[2021-06-26] MEDS: Cyclobenzaprine HCl 10 MG TABLET PO (10:32)
[2021-06-26 11:01] VITALS: RESP 17
== END 2021-06-26 11:06 | disposition home or self-care (01) ==
PROVIDERS: Emergency Provider Emergency Medicine; PCP Family Medicine
DX: M54.16 Radiculopathy, lumbar region (principal); M54.5 Low back pain; I10 Essential (primary) hypertension; Z79.899 Other long term (current) drug therapy
CPT/HCPCS: 96372; 99284; J1885

== ENCOUNTER 2021-12-20 12:19 | Outpatient (REF) | payer MEDICAID, SELFPAY ==
--- NOTE | ~2021-12-20 | XR_ITS ---
EXAMINATION: XR shoulder RT min 2V, XR scapula RT CLINICAL INFORMATION: Reason for Exam PAIN IN RIGHT SHOULDER COMPARISON: 10/12/2014 shoulder radiographs TECHNIQUE: Four views of the shoulder and 2 views of the scapula XR/XR scapula RT FINDINGS/IMPRESSION: No acute fracture or dislocation. Moderate degenerative changes of the acromioclavicular joint with loss of joint space progressed from prior. Glenohumeral joint space is maintained. Alignment is anatomic. Soft tissues are unremarkable.
--- NOTE | ~2021-12-20 | XR_ITS ---
EXAMINATION: XR shoulder RT min 2V, XR scapula RT CLINICAL INFORMATION: Reason for Exam PAIN IN RIGHT SHOULDER COMPARISON: 10/12/2014 shoulder radiographs TECHNIQUE: Four views of the shoulder and 2 views of the scapula XR/XR shoulder RT min 2V FINDINGS/IMPRESSION: No acute fracture or dislocation. Moderate degenerative changes of the acromioclavicular joint with loss of joint space progressed from prior. Glenohumeral joint space is maintained. Alignment is anatomic. Soft tissues are unremarkable.
--- NOTE | ~2021-12-20 | XR_ITS ---
EXAMINATION: XR foot LT min 3V CLINICAL INFORMATION: Pain COMPARISON: None TECHNIQUE: 3 views of the foot XR/XR foot LT min 3V FINDINGS/IMPRESSION: No fracture or dislocation. Mild degenerative changes of the first metatarsophalangeal joint with degenerative spurring. Joint spaces are maintained. No joint effusion. Soft tissues are unremarkable.
== END 2021-12-20 12:20 | disposition home or self-care (01) ==
LOC: HO.XRAY 12:19
PROVIDERS: PCP Family Medicine; Visit Provider Family Medicine
DX: M25.511 Pain in right shoulder (principal); M79.672 Pain in left foot
CPT/HCPCS: 73010; 73030; 73630

== ENCOUNTER 2021-12-26 15:04 | Outpatient (REF) | payer MEDICAID, SELFPAY ==
--- NOTE | ~2021-12-26 | MR_ITS ---
EXAMINATION: MR LUMBAR SPINE WITHOUT CONTRAST CLINICAL INFORMATION: Worsening lower back pain. Pain radiating into the feet. Paresthesia. COMPARISON: Lumbar spine MRI from 01/18/2021. Pelvic ultrasound from 09/27/2016. TECHNIQUE: MRI of the lumbar spine was obtained using routine sequences without contrast. FINDINGS: Normal anatomic alignment. Mild degenerative disc disease from L2-L5 with partial loss of disc height and desiccation. Associated minimal mixed Modic type discogenic endplate changes. No suspicious marrow edema. The vertebral body heights are largely maintained. The conus medullaris terminates at the level of L1. The distal spinal cord is normal in appearance. Mild subcutaneous edema within the soft tissues of the back from L1-L5. No additional significant abnormalities of the paraspinal musculature. The endometrium has progressively increased in thickness, now measuring up to 1.6 cm. Otherwise, limited evaluation of the intra-abdominal structures without significant abnormalities. The abdominal aorta is of normal contour and caliber. AXIAL SPINAL LEVELS: L1-L2: Normal annular contour. There is mild bilateral facet joint arthropathy. There is no neural foraminal stenosis. There is no spinal canal stenosis. L2-L3: Normal annular contour. There is mild bilateral facet joint arthropathy. There is mild left and no right neural foraminal stenosis. There is no spinal canal stenosis. L3-L4: Shallow diffuse disc bulge. There is mild bilateral facet joint arthropathy. There is mild bilateral neural foraminal stenosis. There is no spinal canal stenosis. L4-L5: Mild diffuse disc bulge with superimposed shallow central disc protrusion. There is mild to moderate bilateral facet joint arthropathy. There is moderate right and mild left neural foraminal stenosis. There is narrowing of the subarticular zones with no overt spinal canal stenosis centrally. L5-S1: Shallow diffuse disc bulge. There is moderate right and mild left facet joint arthropathy. There is mild right in the left neural foraminal stenosis. There is narrowing of the right subarticular zone with no overt spinal canal stenosis centrally. MR/MR lumbar spine wo con IMPRESSION: 1. Mild to moderate multilevel degenerative spondyloarthropathy of the lumbar spine as described in detail above. No overt spinal canal stenosis or nerve root compression. Overall, degenerative changes appear similar to exam from 2020. 2. Progressive thickening of the endometrial cavity, measuring up to 1.6 cm in thickness. If clinically indicated, this could be further characterized with pelvic ultrasound.
== END 2021-12-26 15:05 | disposition home or self-care (01) ==
LOC: HO.MRI 15:04
PROVIDERS: PCP Family Medicine; Visit Provider Family Medicine
DX: M54.50 Low back pain, unspecified (principal)
CPT/HCPCS: 72148

== ENCOUNTER 2022-01-19 15:11 | Outpatient (REF) | payer MEDICAID, SELFPAY ==
--- NOTE | ~2022-01-19 | MM_ITS ---
EXAMINATION: MM SCREENING DIGITAL BREAST TOMOSYNTHESIS, BILATERAL CLINICAL INFORMATION: Screening. Asymptomatic. The lifetime risk of breast cancer based on the Tyrer-Cuzick Model is 6%. COMPARISON: Mammography: 07/16/2019, 09/06/2017, 07/13/2016 TECHNIQUE: Digital breast tomosynthesis is performed in both the craniocaudal and mediolateral oblique views along with computer-aided detection (CAD). Synthesized 2D images are generated from the tomosynthesis. FINDINGS: There are scattered areas of fibroglandular density (ACR BI-RADS breast composition Category b). There are no significant masses, abnormal calcifications, or other abnormalities. Parenchymal pattern is similar to prior studies. There is no developing density or architectural abnormality. The axilla and skin contours are unremarkable. No significant changes. MM/MM tomosynthesis screening BI IMPRESSION: No mammographic evidence of malignancy. ASSESSMENT: BI-RADS 1: Negative RECOMMENDATION: Routine annual mammography screening. This patient's information was entered into a reminder system with a target due date for their next mammogram.
== END 2022-01-19 15:12 | disposition home or self-care (01) ==
LOC: HO.MAMMO 15:11
PROVIDERS: Visit Provider Family Medicine
DX: Z12.31 Encounter for screening mammogram for malignant neoplasm of breast (principal)
CPT/HCPCS: 77063; 77067

== ENCOUNTER 2022-05-18 10:34 | Outpatient (REF) | payer MEDICAID, SELFPAY ==
--- NOTE | ~2022-05-18 | XR_ITS ---
EXAMINATION: XR FOOT, RIGHT CLINICAL INFORMATION: Injury. Pain. COMPARISON: None TECHNIQUE: AP, lateral, and oblique views of the right foot. FINDINGS: There is an oblique fracture proximal phalanx mid segment with minimal displacement. No additional fracture seen. The joint spaces are maintained normal. There is moderate soft tissue swelling fourth toe. XR/XR foot RT min 3V IMPRESSION: Minimally displaced oblique fracture proximal phalanx mid segment fourth digit with mild soft tissue swelling.
== END 2022-05-18 10:35 | disposition home or self-care (01) ==
LOC: HO.XRAY 10:34
PROVIDERS: Absent Provider Family Medicine; PCP Family Medicine; Visit Provider Internal Medicine
DX: M79.674 Pain in right toe(s) (principal)
CPT/HCPCS: 73630

== ENCOUNTER → 2022-05-24 14:05 | Outpatient (BNVA) | payer MEDICAID, SELFPAY | PROVIDERS: Visit Provider Physician Assistant | DX: S92.341A Displaced fracture of fourth metatarsal bone, right foot, initial encounter for closed fracture (principal) | CPT/HCPCS: 99202 ==

== ENCOUNTER 2022-07-05 07:58 | Outpatient (REF) | payer MEDICAID, SELFPAY ==
--- NOTE | ~2022-07-05 | XR_ITS ---
EXAMINATION: XR FOOT, RIGHT CLINICAL INFORMATION: Displaced fracture of metatarsal. COMPARISON: 05/18/2022 TECHNIQUE: 3 views of the right foot. FINDINGS: Small plantar calcaneal enthesophyte. Again noted is the oblique fracture of the mid diaphysis of the fourth proximal phalanx with approximately 0.1 cm lateral displacement of the distal fragment. Although some fracture lucency persists, there is also marginal callus formation. Overall, there appears to be mild healing of the fracture. No new osseous abnormalities. The metatarsals are intact, and the metatarsophalangeal joint spaces are maintained. XR/XR foot RT min 3V IMPRESSION: There has been mild, incomplete healing of the previously observed oblique fracture of the fourth proximal phalanx. Otherwise, bones are intact. No new osseous injury.
== END 2022-07-05 07:59 | disposition home or self-care (01) ==
LOC: HO.HOSX 07:58
PROVIDERS: Visit Provider Physician Assistant
DX: S92.351A Displaced fracture of fifth metatarsal bone, right foot, initial encounter for closed fracture (principal)
CPT/HCPCS: 73630

== ENCOUNTER 2022-12-04 12:32 | Outpatient (REF) | payer MEDICAID, SELFPAY ==
--- NOTE | ~2022-12-04 | US_ITS ---
EXAMINATION: US PELVIS CLINICAL INFORMATION: Endometrial thickening. COMPARISON: Pelvic ultrasound dated 09/27/2016. TECHNIQUE: Ultrasound of the pelvis is performed using both transabdominal and transvaginal transducers along with Doppler. Transvaginal imaging is performed due to inadequate visualization transabdominally. FINDINGS: Uterus: The uterus is anteverted and anteflexed. The uterus measures 8.4 x 4.0 x 5.0 cm. The double wall endometrial thickness is 13 mm. The endometrial stripe is heterogeneous echotexture. The uterus is smooth in contour and has normal myometrial echogenicity. No visible fibroid. Adnexa: The left ovary is visualized. The right ovary is not. There is normal color flow to the adnexa. There is no ovarian torsion. There is no pelvic ascites or fluid collection. The left ovary measures 2.0 x 1.7 x 2.1 cm, volume 3.8 mL. US/US pelvic and transvaginal IMPRESSION: 1. There is postmenopausal thickening of the endometrial stripe, with heterogeneous appearance. Gynecology evaluation and management is recommended, with consideration for tissue sampling. 2. Previously noted uterine fibroids are not presently redemonstrated.
== END 2022-12-04 12:33 | disposition home or self-care (01) ==
LOC: HO.HMGCX 12:32
PROVIDERS: PCP Family Medicine; Visit Provider Family Medicine
DX: R93.89 Abnormal findings on diagnostic imaging of other specified body structures (principal)
CPT/HCPCS: 76830; 76856

== ENCOUNTER 2023-09-10 17:24 | Outpatient (REF) | payer MEDICAID, SELFPAY ==
[2023-09-13 08:21] LABS: Oxycodone Screen Urine NEGATIVE
== END 2023-09-10 17:25 | disposition home or self-care (01) ==
LOC: HO.HHCLNP 17:24
PROVIDERS: Visit Provider Family Medicine
DX: M54.50 Low back pain, unspecified (principal); G89.29 Other chronic pain
CPT/HCPCS: 80307

== ENCOUNTER 2023-10-15 20:25 | Emergency (ER) | payer MEDICAID, SELFPAY ==
--- NOTE | ~2023-10-15 | CT_ITS ---
EXAMINATION: CT HEAD WITHOUT CONTRAST CLINICAL INFORMATION: Fall COMPARISON: None available. TECHNIQUE: Contiguous axial imaging was performed from the skull base to vertex without intravenous administration of contrast. This CT examination was performed using dose optimization techniques as appropriate, variously including the following: *Automated exposure control *Adjustment of mA and/or kV according to patient size (this includes techniques or standardized protocols for targeted exams where dose is matched to indication/reason for exam; i.e. extremities or head) *Use of iterative reconstruction technique DLP: 706 mGy-cm FINDINGS: There is no evidence of an extra-axial collection. There is no evidence of intra-axial or extra-axial hemorrhage. The ventricles and extra-axial CSF spaces are appropriate. There is nonspecific periventricular white matter disease. No mass, mass effect or infarct. No skull fracture. Visualized paranasal sinuses, mastoid air cells and middle ears are clear. CT/CT head/brain wo IV con IMPRESSION: No acute intracranial pathology.
[2023-10-15 20:40] VITALS: BP 172/93; BP 174/100; PULSE 106; PULSE 118; RESP 15; TEMP 37.3; O2SAT 100; O2SAT 97; BMI 43.4
--- NOTE | 2023-10-15 20:48 | ED_ITS ---
HPI - Fall General Chief Complaint: Syncope Stated Complaint: BASILIO, FALL, UNCONSCIOUS PER FAMILY Time Seen by Provider: 10/15/23 20:44 Source: patient Mode of arrival: ambulatory Limitations: no limitations History of Present Illness HPI Narrative: Patient use cocaine use it earlier and yesterday was sitting on the bed and next thing she found herself on the ground heard the sound of fall patient denied any injury but complaining of headache no chest pain or palpitation no cardiac history denied use of any opiates no history of seizures no history of alcohol use Related Data Home Medications Medication Instructions Recorded Confirmed atorvastatin 20 mg tablet (Lipitor) 20 mg PO BEDTIME 01/02/21 03/21/21 cholecalciferol (vitamin D3) 50 50 mcg PO DAILY 01/02/21 03/21/21 mcg (2,000 unit) capsule citalopram 20 mg tablet (Celexa) 20 mg PO DAILY 01/02/21 03/21/21 fluticasone propionate 50 2 spray intranasal DAILY 01/02/21 03/21/21 mcg/actuation nasal spray,suspension (Flonase Allergy Relief) gabapentin 300 mg capsule 600 mg PO BID 01/02/21 03/21/21 glipizide 5 mg tablet 5 mg PO BID 01/02/21 03/21/21 hydrochlorothiazide 25 mg tablet 25 mg PO DAILY 01/02/21 03/21/21 lisinopril 40 mg tablet 40 mg PO DAILY 01/02/21 03/21/21 loratadine 10 mg tablet (Claritin) 10 mg PO DAILY 01/02/21 03/21/21 metformin 1,000 mg tablet 1,000 mg PO BID 01/02/21 03/21/21 naloxone 4 mg/actuation nasal 1 spray intranasal Q2M 01/02/21 03/21/21 spray (Narcan) oxcarbazepine 150 mg tablet 150 mg PO BID 01/02/21 03/21/21 oxycodone-acetaminophen 5 mg-325 1 tab PO Q6H PRN 01/02/21 03/21/21 mg tablet (Percocet) tizanidine 2 mg capsule 2 mg PO Q8H PRN 01/02/21 03/21/21 Previous Rx's Medication Instructions Recorded doxycycline hyclate 100 mg capsule 100 mg PO BID 7 days #14 caps 06/12/21 doxycycline hyclate 100 mg capsule 100 mg PO BID 7 days #14 caps 06/12/21 cyclobenzaprine 10 mg tablet 10 mg PO TID PRN muscle spasm #10 06/26/21 tabs lidocaine 5 % topical patch 1 patch topical DAILY #15 ea 06/26/21 (Lidoderm) prednisone 20 mg tablet 40 mg (2 x 20 mg) PO DAILY #8 tabs 06/26/21 Allergies Allergy/AdvReac Type Severity Reaction Status Date / Time No Known Allergies Allergy Verified 10/15/23 21:39 Review of Systems 2 Review of Systems: Yes all other systems are reviewed and are negative [facility] Past Medical History Medical History Arthritis Cyst Diabetes 1.5, managed as type 1 High blood pressure Social History Social History Alcohol intake: current Alcohol intake frequency: holidays/special occasions only Smoked in Last 30 Days: Yes Use of substances other than those prescribed or required for medical reasons: Yes Substance Use Type: Crack/Cocaine Last Used Substance: Hours (ago) Advance Directives: No Advance Directives Information Provided: No Patient : No Current occupational status: disabled Current occupation: Right Handed Physical Exam 2 Vital Signs: Vital Signs: Last Vital Signs Temp 98.9 F 10/15/23 22:55 Pulse 91 10/15/23 22:55 Resp 13 10/15/23 22:55 BP 145/83 H 10/15/23 22:55 Pulse Ox 96 10/15/23 22:55 O2 Del Method Room Air 10/15/23 22:55 BMI result Body Mass Index 43.4 Appearance: Alert. Oriented X3. No acute distress. Eyes: PERRLA, No Nystagmus HEENT: Pharynx normal. Oral Mucosa moist AT NC Neck: Normal inspection. Neck supple. CVS: Normal heart rate and rhythm. Pulses normal. Respiratory: No respiratory distress. Equal air entry bilateral, no wheezing/rales/rhonchi Abdomen: Soft and nontender. Bowel sounds are present, no mass palpable, no CVA tenderness Skin: Skin warm and dry. Normal skin color. Normal skin turgor. Extremities: No lower extremity edema. No calf tenderness Neuro: Oriented X 3. No motor deficit. No sensory deficit.No cerebellar signs , cranial nerves II-XII intact Medications Administered Discontinued Medications Generic Name Dose Route Start Last Admin Trade Name Tyson PRN Reason Stop Dose Admin Acetaminophen 650 mg 10/15/23 21:39 10/15/23 21:53 Acetaminophen 325 Mg Tablet PO 10/15/23 21:40 650 mg ONCE ONE Administration Medical Decision Making Medical Decision Making [facility] Narrative: Patient with cocaine induced change in mental status and fall head CT negative patient ambulatory and steady gait discharge patient home Differential Diagnosis Differential Diagnoses: The differential diagnosis associated with the presentation includes Substance abuse/encephalopathy/SDH/intracranial hemorrhage Lab Data [facility] Lab Attestation statement: I reviewed the patient's lab results. 10/15/23 21:11 10/15/23 21:11 Labs: Lab Results 10/15/23 10/15/23 Range/Units 21:11 22:12 WBC 12.6 H (4.8-10.8) X10*3/uL RBC 4.69 (4.20-5.50) X10*6/uL Hgb 13.7 (12.0-16.0) g/dl Hct 40.9 (37.0-47.0) % MCV 87.2 (80.0-98.0) fL MCH 29.2 (27.0-33.0) pg MCHC 33.5 (31.0-35.0) g/dl RDW 13.9 (11.0-16.0) % Plt Count 278 (160-400) X10*3/uL MPV 9.3 L (9.4-12.3) fL Immature Gran % (Auto) 0.5 H (0.0-0.4) % Neut % (Auto) 75.5 H (45-73) % Lymph % (Auto) 16.1 L (20-40) % Day % (Auto) 6.3 (2-11) % Eos % (Auto) 1.3 (0-4) % Baso % (Auto) 0.3 (0-2) % Lymph # (Auto) 2.0 (1.2-4.9) X10*3/uL Day # (Auto) 0.8 (0.1-1.2) X10*3/uL Eos # (Auto) 0.2 (0.0-0.4) X10*3/uL Baso # (Auto) 0.0 (0.0-0.2) X10*3/uL Abs Immat Gran (auto) 0.06 H (0.00-0.03) X10*3/uL Absolute Neuts (auto) 9.5 H (2.0-8.3) x10*3/uL Absolute Nucleated RBC 0.000 (0.0-0.012) X10*3/uL Nucleated RBC % (auto) 0.0 (0.0-0.2) /100WBC Sodium 140 (135-145) mmol/L Potassium 3.5 (3.3-5.1) mmol/L Chloride 108 (96-108) mmol/L Carbon Dioxide 23 (22-29) mmol/L Anion Gap 13 (12-20) BUN 13 (9-16) mg/dL Creatinine 0.83 (0.5-1.4) mg/dL Estim Creat Clear Calc 80.0 Estimated GFR > 60 Random Glucose 234 H (60-115) mg/dL Calcium 8.8 (8.4-10.2) mg/dL Total Bilirubin 0.3 (0.0-1.0) mg/dL AST 15 (5-31) U/L ALT 15 (0-31) U/L Alkaline Phosphatase 107 (39-117) U/L Troponin I High Sens 5.4 (<3.5-17.0) ng/L Total Protein 6.9 (6.5-8.0) g/dL Albumin 3.8 (3.5-5.0) g/dL Urine Opiates Screen Not Detected (Not Detect) Urine Fentanyl Screen Not Detected (Not Detect) Ur Barbiturates Screen Not Detected (Not Detect) Ur Phencyclidine Scrn Not Detected (Not Detect) Ur Amphetamines Screen Not Detected (Not Detect) U Benzodiazepines Scrn Not Detected (Not Detect) Urine Cocaine Screen POSITIVE H (Not Detect) U Marijuana (THC) Screen Not Detected (Not Detect) Ethyl Alcohol < 10 mg/dL Independent Interpretation I performed an independent interpretation of an: CT Scan Radiology Impression Discussion of test interpretation with radiology: I have reviewed the radiologist's reading. Discharge Plan Discharge Clinical Impression: Cocaine abuse Patient Disposition: Home, Self-Care Instructions: Cocaine Abuse (ED) Additional Instructions: Do not use cocaine Follow with PCP/detox if needed any help Prescriptions: No Action doxycycline hyclate 100 mg capsule 100 mg PO BID 7 Days Qty: 14 0RF doxycycline hyclate 100 mg capsule 100 mg PO BID 7 Days Qty: 14 0RF cyclobenzaprine 10 mg tablet 10 mg PO TID PRN (Reason: muscle spasm) Qty: 10 0RF prednisone 20 mg tablet 40 mg PO DAILY Qty: 8 0RF lidocaine [Lidoderm] 5 % adhesive patch,medicated 1 patch topical DAILY Qty: 15 0RF Rx Instructions: leave on most painful area for up to 12 hrs loratadine [Claritin] 10 mg tablet 10 mg PO DAILY tizanidine 2 mg capsule 2 mg PO Q8H PRN Narcan 4 mg/actuation spray,non-aerosol 1 spray intranasal Q2M Rx Instructions: spray 1 dose into ONE nostril; alternate nostrils w each dose until help arrives fluticasone propionate [Flonase Allergy Relief] 50 mcg/actuation spray,suspension 2 spray intranasal DAILY Rx Instructions: administer into each nostril hydrochlorothiazide 25 mg tablet 25 mg PO DAILY glipizide 5 mg tablet 5 mg PO BID metformin 1,000 mg tablet 1,000 mg PO BID lisinopril 40 mg tablet 40 mg PO DAILY gabapentin 300 mg capsule 600 mg PO BID citalopram [Celexa] 20 mg tablet 20 mg PO DAILY atorvastatin [Lipitor] 20 mg tablet 20 mg PO BEDTIME cholecalciferol (vitamin D3) 50 mcg (2,000 unit) capsule 50 mcg PO DAILY oxcarbazepine 150 mg tablet 150 mg PO BID oxycodone-acetaminophen [Percocet] 5-325 mg tablet 1 tab PO Q6H PRN Interventions: ED Discharge Assessment Last Done: 10/15/23 23:01 Discharge Date/Time: 10/15/23 23:02
--- NOTE | 2023-10-15 20:52 | ECG_ITS ---
Test Reason : SYNCOPE Blood Pressure : / mmHG Vent. Rate : 103 BPM Atrial Rate : 103 BPM P-R Int : 170 ms QRS Dur : 088 ms QT Int : 350 ms P-R-T Axes : 066 041 066 degrees QTc Int : 458 ms Sinus tachycardia Otherwise normal ECG When compared with ECG of 27-AUG-2017 18:14, Vent. rate has increased BY 39 BPM Nonspecific T wave abnormality no longer evident in Inferior leads Referred By: Olayinka Schwartz Electronically Signed By:HUSSAIN NEAL MD
[2023-10-15 21:15] LABS: MANUAL DIFF FLAG NO
[2023-10-15 21:19] LABS: Basophils Percent Auto 0.3 % (0-2); Eosinophils Absolute Auto 0.2 X10*3/uL (0.0-0.4); Eosinophils Percent Auto 1.3 % (0-4); Hematocrit 40.9 % (37.0-47.0); Hemoglobin 13.7 g/dl (12.0-16.0); Imm Gran Abs Auto 0.06 X10*3/uL (0.00-0.03); Imm Gran Pct Auto 0.5 % (0.0-0.4); Lymphocytes Percent Auto 16.1 % (20-40); Mean Corpuscular HGB Conc 33.5 g/dl (31.0-35.0); Mean Corpuscular Hemoglobin 29.2 pg (27.0-33.0); Mean Corpuscular Volume 87.2 fL (80.0-98.0); Mean Platelet Volume 9.3 fL (9.4-12.3); Monocytes Absolute Auto 0.8 X10*3/uL (0.1-1.2); Monocytes Percent Auto 6.3 % (2-11); Neutrophils Absolute Auto 9.5 x10*3/uL (2.0-8.3); Neutrophils Percent Auto 75.5 % (45-73); Platelet Count 278 X10*3/uL (160-400); Red Blood Count 4.69 X10*6/uL (4.20-5.50); Red Cell Distribution Width 13.9 % (11.0-16.0); White Blood Count 12.6 X10*3/uL (4.8-10.8)
[2023-10-15 21:30] LABS: Ethanol < 10 mg/dL
[2023-10-15 21:32] LABS: Alanine Aminotransferase 15 U/L (0-31); Albumin Level 3.8 g/dL (3.5-5.0); Alkaline Phosphatase 107 U/L (39-117); Anion Gap 13 (12-20); Aspartate Amino Transferase 15 U/L (5-31); Bilirubin Total 0.3 mg/dL (0.0-1.0); Blood Urea Nitrogen 13 mg/dL (9-16); Calcium 8.8 mg/dL (8.4-10.2); Carbon Dioxide 23 mmol/L (22-29); Chloride 108 mmol/L (96-108); Estimated Glomerular Filt Rate > 60; Glucose Random 234 mg/dL (60-115); Potassium 3.5 mmol/L (3.3-5.1); Sodium 140 mmol/L (135-145); Total Protein 6.9 g/dL (6.5-8.0)
[2023-10-15 21:39] LABS: Troponin-I High Sensitivity 5.4 ng/L (<3.5-17.0)
[2023-10-15 21:48] VITALS: BP 152/87; PULSE 95; RESP 20; O2SAT 97
[2023-10-15] MEDS: Acetaminophen 325 MG TABLET 650 MG PO (21:53)
--- NOTE | 2023-10-15 21:58 | PC.NURSE ---
PT AMBULATING TO BATHROOM WITH HELP OF FAMILY. PT C/O DIZZINESS
[2023-10-15 22:28] LABS: Amphetamine Screen Urine Not Detected (Not Detect); Barbiturates, Urine Not Detected (Not Detect); Benzodiazepines Screen Urine Not Detected (Not Detect); Cannabinoid Screen Urine Not Detected (Not Detect); Cocaine Screen Urine POSITIVE (Not Detect); Fentanyl, urine Not Detected (Not Detect); Opiate Screen Urine Not Detected (Not Detect); Phencyclidine Screen Urine Not Detected (Not Detect)
[2023-10-15 22:55] VITALS: BP 145/83; PULSE 91; RESP 13; TEMP 37.2; O2SAT 96
== END 2023-10-15 23:02 | disposition home or self-care (01) ==
PROVIDERS: Emergency Provider Internal Medicine; PCP Family Medicine
DX: F14.10 Cocaine abuse, uncomplicated (principal); R51.9 Headache, unspecified; Z91.81 History of falling; E13.9 Other specified diabetes mellitus without complications; I10 Essential (primary) hypertension; Z79.84 Long term (current) use of oral hypoglycemic drugs; Z79.899 Other long term (current) drug therapy
CPT/HCPCS: 36415; 70450; 80053; 80307; 84484; 85025; 93005; 99284; 99285

== ENCOUNTER → 2023-10-15 20:52 | Outpatient (BNV) | payer MEDICAID, SELFPAY | PROVIDERS: Emergency Provider Internal Medicine; PCP Family Medicine; Visit Provider Internal Medicine Cardiovascular Disease | DX: R55 Syncope and collapse (principal); R00.0 Tachycardia, unspecified | CPT/HCPCS: 93010 ==

== ENCOUNTER 2023-12-19 11:13 | Outpatient (REF) | payer MEDICAID, SELFPAY ==
--- NOTE | ~2023-12-19 | XR_ITS ---
EXAMINATION: XR HAND, RIGHT CLINICAL INFORMATION: Swelling and pain of the right hand after trauma COMPARISON: None available. TECHNIQUE: PA, lateral, and oblique views of the right hand. FINDINGS: Carpal alignment is preserved. No evidence of an acute fracture, dislocation or destructive process. XR/XR hand RT min 3V IMPRESSION: Unremarkable study.
== END 2023-12-19 11:14 | disposition home or self-care (01) ==
LOC: HO.HHCX 11:13
PROVIDERS: Visit Provider Internal Medicine Geriatric Medicine
DX: M79.641 Pain in right hand (principal); M79.89 Other specified soft tissue disorders
CPT/HCPCS: 73130

== ENCOUNTER 2024-05-29 14:20 | Outpatient (REF) | payer MEDICAID, SELFPAY ==
--- NOTE | ~2024-05-29 | US_ITS ---
EXAMINATION: US PELVIS CLINICAL INFORMATION: Thickened endometrium on previous ultrasound, no pain, postmenopausal. COMPARISON: December 04, 2022. TECHNIQUE: Ultrasound of the pelvis is performed using both transabdominal and transvaginal transducers along with Doppler. Transvaginal imaging is performed due to inadequate visualization transabdominally. FINDINGS: Uterus: The uterus is anteverted and measures 8.9 x 4.7 x 5.3 cm. The double wall endometrial thickness is 20 mm. The endometrium previously measured 13 mm. The endometrium appears heterogeneous with small cystic areas. Right ovary measures 2.6 x 1.7 x 1.6 cm. Volume 3.7 mL. Left ovary was not visualized. No significant free fluid. US/US pelvic and transvaginal IMPRESSION: 1. Endometrial thickness of 20 mm with heterogeneous, complex appearance, previously 13 mm. Suspicious finding for postmenopausal patient. As previously noted, gynecologic consultation recommended to determine further management including possible biopsy. This study was presented to me on June 09, 2024 for interpretation. PSA staff will provide results to referring provider at this time.
== END 2024-05-29 14:21 | disposition home or self-care (01) ==
LOC: HO.US 14:20
PROVIDERS: PCP Family Medicine; Visit Provider Family Medicine
DX: R93.89 Abnormal findings on diagnostic imaging of other specified body structures (principal)
CPT/HCPCS: 76830; 76856

== ENCOUNTER 2024-06-10 15:24 | Outpatient (REF) | payer MEDICAID, SELFPAY ==
--- NOTE | ~2024-06-10 | MM_ITS ---
EXAMINATION: MM SCREENING DIGITAL BREAST TOMOSYNTHESIS, BILATERAL CLINICAL INFORMATION: Screening. Asymptomatic. COMPARISON: Mammography: Study is compared to prior exams dating back to 2005. TECHNIQUE: Digital breast tomosynthesis is performed in both the craniocaudal and mediolateral oblique views along with computer-aided detection (CAD). Synthesized 2D images are generated from the tomosynthesis. FINDINGS: There are scattered areas of fibroglandular density (ACR BI-RADS breast composition Category b). There are no significant masses, abnormal calcifications, or other abnormalities. MM/MM tomosynthesis screening BI IMPRESSION: No mammographic evidence of malignancy. ASSESSMENT: BI-RADS BI-RADS 1 - Negative RECOMMENDATION: Routine annual mammography screening. 1 year F/U This examination should not preclude the clinical evaluation of a suspicious palpable abnormality. This patient's information was entered into a reminder system with a target due date for their next mammogram. Electronically signed by: Holly Sanchez MD 07/08/2024 12:53 PM EDT
== END 2024-06-10 15:25 | disposition home or self-care (01) ==
LOC: HO.MAMMO 15:24
PROVIDERS: PCP Family Medicine; Visit Provider Family Medicine
DX: Z12.31 Encounter for screening mammogram for malignant neoplasm of breast (principal)
CPT/HCPCS: 77063; 77067

== ENCOUNTER 2024-07-15 08:21 | Outpatient (REF) | payer MEDICAID, SELFPAY ==
[2024-07-15 11:03] LABS: Hematocrit 41.7 % (37.0-47.0); Hemoglobin 13.8 g/dl (12.0-16.0); Mean Corpuscular HGB Conc 33.1 g/dl (31.0-35.0); Mean Corpuscular Hemoglobin 29.7 pg (27.0-33.0); Mean Corpuscular Volume 89.7 fL (80.0-98.0); Platelet Count 294 X10*3/uL (160-400); Red Blood Count 4.65 X10*6/uL (4.20-5.50); Red Cell Distribution Width 14.4 % (11.0-16.0); White Blood Count 11.4 X10*3/uL (4.8-10.8)
[2024-07-15 11:05] LABS: Hemoglobin 13.8 g/dl (12.0-16.0); Mean Corpuscular HGB Conc 32.9 g/dl (31.0-35.0); Mean Corpuscular Hemoglobin 29.4 pg (27.0-33.0); Mean Corpuscular Volume 89.4 fL (80.0-98.0); Mean Platelet Volume 9.9 fL (9.4-12.3); Platelet Count 289 X10*3/uL (160-400); Red Cell Distribution Width 14.2 % (11.0-16.0); White Blood Count 11.4 X10*3/uL (4.8-10.8)
[2024-07-15 11:48] LABS: Creatinine Urine 91.96 mg/dL; Microalbum/Creatinine Ratio Ur 11.9 ug/mg cr (<30)
[2024-07-15 11:54] LABS: Estimated Average Glucose 143 mg/dL; Hemoglobin A1c % 6.6 % (<6.0); Total Hemoglobin (HGBA1C) 3417.0538 umol/L
[2024-07-15 11:55] LABS: HBS Num1 0.68 mIU/mL (0-7.99); HBc Num1 0.17 S/CO (0.00-0.79); HBsAGNum1 0.35 S/CO (0.00-0.99); HIV AB/AG Nonreactive (Nonreactive); HIV Num 1 0.05 S/CO (0.00-0.99); Hepatitis B Core Antibody Nonreactive (Nonreactive); Hepatitis B Surface Antigen Negative (Negative); ~HepC Num1 0.11 S/CO (0.00-0.79); ~Hepatitis B Surface Antibody NONREACTIVE (Nonreactive); ~Hepatitis C Antibody Nonreactive (Nonreactive)
[2024-07-15 11:58] LABS: Hepatitis A Antibody IgG Nonreactive (Nonreactive); ~Hepatitis A Antibody IgG 0.42 S/CO (0.00-0.99)
[2024-07-15 12:03] LABS: Anion Gap 8 (12-20)
[2024-07-15 12:19] LABS: Alanine Aminotransferase 15 U/L (0-31); Alkaline Phosphatase 84 U/L (39-117); Aspartate Amino Transferase 11 U/L (5-31); Bilirubin Direct 0.1 mg/dL (0.0-0.5); Bilirubin Total 0.3 mg/dL (0.0-1.0); Blood Urea Nitrogen 14 mg/dL (9-16); Calcium 9.1 mg/dL (8.4-10.2); Carbon Dioxide 31 mmol/L (22-29); Chloride 108 mmol/L (96-108); Cholesterol 195 mg/dL (<200); Estimated Glomerular Filt Rate > 60; Glucose Random 127 mg/dL (60-115); HDL Cholesterol 44 mg/dL (>40); LDL Cholesterol Calculated 137 mg/dL (<100); Potassium 4.1 mmol/L (3.3-5.1); Sodium 143 mmol/L (135-145); Total Protein 7.4 g/dL (6.5-8.0); Triglycerides 70 mg/dL (<150)
[2024-07-15 12:40] LABS: Free T4 (Free Thyroxine) 0.94 ng/dL (0.71-1.85); Thyroid Stimulating Hormone 1.25 uIU/mL (0.32-4.0); Vitamin D 25-OH Total 29.6 ng/mL (>30)
[2024-07-15 14:08] LABS: CT PCR NOT DETECTED (Not Detect.); NG PCR NOT DETECTED (Not Detect.)
[2024-07-17 12:54] LABS: RPR Rapid Plasma Reagin NON-REACTIVE (NON-REACTIVE)
== END 2024-07-15 08:22 | disposition home or self-care (01) ==
LOC: HO.HHCL 08:21
PROVIDERS: Visit Provider Family Medicine
DX: Z00.00 Encounter for general adult medical examination without abnormal findings (principal); E11.9 Type 2 diabetes mellitus without complications; I10 Essential (primary) hypertension; E78.49 Other hyperlipidemia; F33.9 Major depressive disorder, recurrent, unspecified; G47.33 Obstructive sleep apnea (adult) (pediatric); M54.50 Low back pain, unspecified; G89.29 Other chronic pain; R93.89 Abnormal findings on diagnostic imaging of other specified body structures; F17.200 Nicotine dependence, unspecified, uncomplicated; Z12.31 Encounter for screening mammogram for malignant neoplasm of breast; Z79.4 Long term (current) use of insulin
CPT/HCPCS: 36415; 80048; 80061; 80076; 82043; 82306; 82570; 83036; 84439; 84443; 85027; 86592; 86704; 86706; 86708; 86803; 87340; 87389; 87491; 87591

== ENCOUNTER 2024-07-16 22:20 | Emergency (ER) | payer MEDICAID, SELFPAY ==
[2024-07-16 22:31] VITALS: BP 158/88; PULSE 103; RESP 18; TEMP 37.1; O2SAT 93
[2024-07-16 22:35] VITALS: BP 158/88; BP 186/111; PULSE 108; PULSE 99; RESP 20; TEMP 37.1; O2SAT 95; O2SAT 96; BMI 43.2
--- NOTE | 2024-07-16 22:38 | PC.NURSE ---
Seizure pads on bed
--- NOTE | 2024-07-16 22:39 | PC.NURSE ---
Pt. on hospital monitor at this time
--- NOTE | 2024-07-17 00:17 | ED.SEIZURE ---
HPI - Seizure General Chief Complaint: Seizure Stated Complaint: Seizure lasting 5 mins Time Seen by Provider: 07/17/24 00:03 Source: patient Mode of arrival: EMS Limitations: no limitations History of Present Illness ED Provider: carson JACOB Narrative: Patient's history of epilepsy on oxcarbazepine which she not taking it for last 1 year also use cocaine had a seizure prior to arrival lasted for 5 minutes with no significant injury except the tongue bite refusing to answer questions refusing to have the labs drawn Related Data Home Medications ?Medication ?Instructions ?Recorded ?Confirmed atorvastatin 20 mg tablet (Lipitor) 20 mg PO BEDTIME 01/02/21 03/21/21 cholecalciferol (vitamin D3) 50 50 mcg PO DAILY 01/02/21 03/21/21 mcg (2,000 unit) capsule citalopram 20 mg tablet (Celexa) 20 mg PO DAILY 01/02/21 03/21/21 fluticasone propionate 50 2 spray intranasal DAILY 01/02/21 03/21/21 mcg/actuation nasal spray,suspension (Flonase Allergy Relief) gabapentin 300 mg capsule 600 mg PO BID 01/02/21 03/21/21 glipizide 5 mg tablet 5 mg PO BID 01/02/21 03/21/21 hydrochlorothiazide 25 mg tablet 25 mg PO DAILY 01/02/21 03/21/21 lisinopril 40 mg tablet 40 mg PO DAILY 01/02/21 03/21/21 loratadine 10 mg tablet (Claritin) 10 mg PO DAILY 01/02/21 03/21/21 metformin 1,000 mg tablet 1,000 mg PO BID 01/02/21 03/21/21 naloxone 4 mg/actuation nasal 1 spray intranasal Q2M 01/02/21 03/21/21 spray (Narcan) oxcarbazepine 150 mg tablet 150 mg PO BID 01/02/21 03/21/21 oxycodone-acetaminophen 5 mg-325 1 tab PO Q6H PRN 01/02/21 03/21/21 mg tablet (Percocet) tizanidine 2 mg capsule 2 mg PO Q8H PRN 01/02/21 03/21/21 Previous Rx's ?Medication ?Instructions ?Recorded doxycycline hyclate 100 mg capsule 100 mg PO BID 7 days #14 caps 06/12/21 doxycycline hyclate 100 mg capsule 100 mg PO BID 7 days #14 caps 06/12/21 cyclobenzaprine 10 mg tablet 10 mg PO TID PRN muscle spasm #10 06/26/21 tabs lidocaine 5 % topical patch 1 patch topical DAILY #15 ea 06/26/21 (Lidoderm) prednisone 20 mg tablet 40 mg (2 x 20 mg) PO DAILY #8 tabs 06/26/21 oxcarbazepine 150 mg tablet 150 mg PO BID #60 tabs 07/17/24 Allergies Allergy/AdvReac Type Severity Reaction Status Date / Time No Known Allergies Allergy Verified 07/16/24 22:36 Review of Systems Review of Systems: Yes all other systems are reviewed and are negative [facility] Past Medical History Medical History Cyst Arthritis High blood pressure Diabetes 1.5, managed as type 1 Social History Social History Alcohol intake: current Alcohol intake frequency: holidays/special occasions only Smoked in Last 30 Days: Yes Use of substances other than those prescribed or required for medical reasons: No Substance Use Type: Crack/Cocaine Advance Directives: No Advance Directives Information Provided: Yes Do you have a plan to hurt others: No Plan Current occupational status: disabled Current occupation: Right Handed Physical Exam Vital Signs: Vital Signs: Last Vital Signs Temp 98.8 F 07/17/24 00:48 Pulse 99 07/17/24 00:48 Resp 20 07/17/24 00:48 BP 158/88 H 07/17/24 00:48 Pulse Ox 95 07/17/24 00:48 O2 Del Method Room Air 07/17/24 00:48 BMI result Body Mass Index 43.2 Appearance: Alert. Oriented X3. No acute distress. Eyes: PERRLA, No Nystagmus ENT: Pharynx normal. Oral Mucosa moist superficial tongue bite on right lateral margin Neck: Normal inspection. Neck supple. CVS: Normal heart rate and rhythm. Pulses normal. Respiratory: No respiratory distress. Equal air entry bilateral, no wheezing/rales/rhonchi Abdomen: Soft and nontender. Bowel sounds are present, no mass palpable, no CVA tenderness Skin: Skin warm and dry. Normal skin color. Normal skin turgor. Extremities: No lower extremity edema. No calf tenderness Neuro: Oriented X 3. No motor deficit. No sensory deficit.No cerebellar signs , cranial nerves II-XII intact Medications Administered Discontinued Medications Generic Name Dose Route Start Last Admin Trade Name Tyson PRN Reason Stop Dose Admin Ibuprofen 600 mg 07/17/24 00:40 07/17/24 00:44 Ibuprofen 600 Mg Tablet PO 07/17/24 00:41 600 mg ONCE ONE Administration Lorazepam 2 mg 07/17/24 00:40 07/17/24 00:44 Lorazepam 1 Mg Tablet PO 07/17/24 00:41 2 mg ONCE ONE Administration Medical Decision Making Medical Decision Making MDM Narrative: Patient's history of epilepsy with cocaine use will give Ativan started on oxcarbazepine patient refused labs advised to follow with PCP Discharge Plan Discharge Clinical Impression: Seizure disorder Patient Disposition: Home, Self-Care Instructions: Epilepsy (ED) Additional Instructions: Stop using cocaine Start taking your seizure medication as prescribed and follow with neurologist/PCP Prescriptions: New oxcarbazepine 150 mg tablet 150 mg PO BID Qty: 60 0RF No Action doxycycline hyclate 100 mg capsule 100 mg PO BID 7 Days Qty: 14 0RF doxycycline hyclate 100 mg capsule 100 mg PO BID 7 Days Qty: 14 0RF cyclobenzaprine 10 mg tablet 10 mg PO TID PRN (Reason: muscle spasm) Qty: 10 0RF prednisone 20 mg tablet 40 mg PO DAILY Qty: 8 0RF lidocaine [Lidoderm] 5 % adhesive patch,medicated 1 patch topical DAILY Qty: 15 0RF Rx Instructions: leave on most painful area for up to 12 hrs loratadine [Claritin] 10 mg tablet 10 mg PO DAILY tizanidine 2 mg capsule 2 mg PO Q8H PRN Narcan 4 mg/actuation spray,non-aerosol 1 spray intranasal Q2M Rx Instructions: spray 1 dose into ONE nostril; alternate nostrils w each dose until help arrives fluticasone propionate [Flonase Allergy Relief] 50 mcg/actuation spray,suspension 2 spray intranasal DAILY Rx Instructions: administer into each nostril hydrochlorothiazide 25 mg tablet 25 mg PO DAILY glipizide 5 mg tablet 5 mg PO BID metformin 1,000 mg tablet 1,000 mg PO BID lisinopril 40 mg tablet 40 mg PO DAILY gabapentin 300 mg capsule 600 mg PO BID citalopram [Celexa] 20 mg tablet 20 mg PO DAILY atorvastatin [Lipitor] 20 mg tablet 20 mg PO BEDTIME cholecalciferol (vitamin D3) 50 mcg (2,000 unit) capsule 50 mcg PO DAILY oxcarbazepine 150 mg tablet 150 mg PO BID oxycodone-acetaminophen [Percocet] 5-325 mg tablet 1 tab PO Q6H PRN Interventions: ED Discharge Assessment Last Done: 07/17/24 00:48 Discharge Date/Time: 07/17/24 00:57 Print Language: Gabonese
[2024-07-17] MEDS: LORazepam 1 MG TABLET 2 MG PO (00:44)
[2024-07-17] MEDS: Ibuprofen 600 MG TABLET PO (00:44)
[2024-07-17 00:48] VITALS: BP 158/88; PULSE 99; RESP 20; TEMP 37.1; O2SAT 95
== END 2024-07-17 00:57 | disposition home or self-care (01) ==
PROVIDERS: Emergency Provider Internal Medicine; PCP Family Medicine
DX: R56.9 Unspecified convulsions (principal); F14.90 Cocaine use, unspecified, uncomplicated; Z79.899 Other long term (current) drug therapy
CPT/HCPCS: 99283; 99284

== ENCOUNTER 2024-08-13 17:46 | Outpatient (REF) | payer MEDICAID, SELFPAY ==
[2024-08-17 10:14] LABS: Benzoylecgonine 197 (H)
== END 2024-08-13 17:47 | disposition home or self-care (01) ==
LOC: HO.LNP 17:46
PROVIDERS: Visit Provider Family Medicine
DX: M54.50 Low back pain, unspecified (principal); G89.29 Other chronic pain
CPT/HCPCS: 80353

== ENCOUNTER → 2024-08-17 18:04 | Outpatient (BNV) | payer MEDICAID, SELFPAY | PROVIDERS: PCP Family Medicine; Visit Provider Radiology Diagnostic Radiology | DX: M54.50 Low back pain, unspecified (principal) | CPT/HCPCS: 72148 ==

== ENCOUNTER 2024-08-17 18:10 | Outpatient (REF) | payer MEDICAID, SELFPAY ==
--- NOTE | ~2024-08-17 | MR_ITS ---
EXAMINATION: MR LUMBAR SPINE WITHOUT CONTRAST CLINICAL INFORMATION: Worsening low back pain with radiation to bilateral lower extremities with bilateral paresthesias. COMPARISON: MR lumbar 12/26/2021, 01/18/2021, 05/27/2018, 05/09/2016, 07/16/2014, 06/20/2013, and 09/04/2010. TECHNIQUE: Multiplanar multisequence MR imaging of the lumbar spine was done without IV contrast. Examination was performed on a 1.5 Deloris Siemens magnet, utilizing standard sequences. FINDINGS: CORONAL ALIGNMENT: -Trace levoconvex scoliosis apex at L4, stable. SAGITTAL ALIGNMENT: - Normal lordosis and alignment. -Trace degenerative type anterolisthesis L3-4, L4-5. -Sagittal alignment otherwise anatomic. LUMBOSACRAL JUNCTION: -Normal. There are 5 ctu-sik-zalbtey lumbar-type vertebral bodies. VERTEBRAL BODIES/BONE MARROW: -There is a small hemangioma and L5. -No compression deformities or acute fractures. -No abnormal infiltrating bone marrow signal or gross bone marrow edema. DISCS: -Mild disc desiccation spanning L2-S1 with only minimal loss of height of L3-4. This appears unchanged. SPINAL CANAL: -No abnormal developmental findings. CONUS MEDULLARIS: -Terminates at inferior endplate L1. Morphology and signal is normal. INTRADURAL NERVE ROOTS: - No abnormal nerve root clumping or mass. Axial Disc Space Images: T12-L1: No central canal or neural foraminal narrowing. L1-L2: No disc pathology. Mild hypertrophic degenerative facet changes bilaterally, similar. No significant central canal or neural foraminal narrowing. No change. L2-L3: There is a tiny left foraminal protrusion of disc material. There are mild bilateral degenerative facet changes. There is no significant central canal narrowing. There is mild left neural foraminal narrowing. No change. L3-L4: Trace disc bulging is present without significant mass effect. This extends into both neural foramen concentrically. Mild to moderate right greater than left hypertrophic degenerative facet changes with mild posterior ligamentous infolding. There is minimal central canal narrowing, no significant subarticular recess narrowing, and mild bilateral neural foraminal narrowing. No change. L4-L5: Diffuse shallow disc annulus bulge extending into both neural foraminal zones, with left far lateral annular fissuring. Mild to moderate bilateral hypertrophic degenerative facet changes with posterior ligamentous thickening/infolding. There is mild central canal narrowing, bilateral subarticular recess narrowing, and mild to moderate bilateral left greater than right neural foraminal narrowing. No change. L5-S1: Diffuse shallow concentric disc bulging. Moderate right and mild left hypertrophic facet changes. No significant central canal or subarticular recess stenosis. There is mild right greater than left neural foraminal stenosis. No change. IMAGED SI JOINTS: -Mild degenerative arthropathy right greater than left. PARAVERTEBRAL AND INCLUDED EXTRASPINAL SOFT TISSUES: -Only the very cephalad uterus is included on the imaging on today's exam, however there appears to be persistent endometrial thickening, abnormal in a postmenopausal patient. No junctional zone thickening. Refer to pelvic ultrasound 05/29/2024. MR/MR lumbar spine wo con IMPRESSION: 1. Relatively mild lumbar spondylosis, without significant change from 12/26/2021 poor 12/21/2020. No evidence of significant central canal narrowing, subarticular recess narrowing, neural foraminal narrowing, or nerve root impingement. 2. No abnormal bone marrow edema or infiltrating abnormal signal. 3. Normal appearance to the cauda equina without clumping or nerve root mass. 4. Persistent endometrial thickening suspected although only the most cephalad aspect of the uterus was included on the scan. Refer to pelvic ultrasound 05/29/2024. Electronically signed by: Giles Love MD 10/13/2024 09:15 AM CARIE WEBSTER
== END 2024-08-17 18:11 | disposition home or self-care (01) ==
LOC: HO.MRI 18:10
PROVIDERS: PCP Family Medicine; Visit Provider Family Medicine
DX: M54.50 Low back pain, unspecified (principal); G89.29 Other chronic pain
CPT/HCPCS: 72148

== ENCOUNTER 2024-09-28 18:02 | Outpatient (REF) | payer MEDICAID, SELFPAY ==
[2024-10-01 08:23] LABS: Benzoylecgonine NEGATIVE
== END 2024-09-28 18:03 | disposition home or self-care (01) ==
LOC: HO.HHCLNP 18:02
PROVIDERS: Visit Provider Family Medicine
DX: M54.50 Low back pain, unspecified (principal); G89.29 Other chronic pain
CPT/HCPCS: 36415; 80353

== ENCOUNTER 2025-04-21 08:41 | Outpatient (REF) | payer MEDICAID, SELFPAY ==
--- NOTE | ~2025-04-21 | XR_ITS ---
EXAMINATION: XR KNEE, LEFT CLINICAL INFORMATION: increased knee pain and swelling COMPARISON: None available. TECHNIQUE: Four views of the left knee. FINDINGS: There is mild to moderate narrowing of the medial joint space and small marginal osteophytes. There is a joint effusion. No other abnormality. XR/XR knee LT 4V IMPRESSION: Mild to moderate osteoarthritis. Joint effusion. Electronically signed by: Brandan Colin MD 04/21/2025 10:24 AM EDT
--- OUTSIDE RECORDS SUMMARY | 2025-04-21 09:07 | XMS_ITS | Encounter Summary ---
Author Organization [employer] Address [address] [facility] [address] [place] [address] Care Team Providers Care General Repair Mechanic Name Role Phone Nahomy Patino DO Primary Care Provider + [phone] Reason for Visit * Reason Onset Date Comments Reschedule 05/22/2024 Encounter Details Date Type Department Care Team ([facility] st Contact Info) Description 05/22/2024 Telephone [facility] MEDICINE [address], [place] [phone] Nahomy Patino DO [address] [place], [place] [phone] Reschedule Social History Tobacco Use Types Packs/Day Years Used Date Smoking Tobacco: Every Day Cigarettes Passive Smoke Exposure: Current Smokeless Tobacco: Former Alcohol Use Standard Drinks/Week Comments Never 0 (1 standard drink = 0.6 oz pur e alcohol) Depression Answer Date Recorded Patient Health Questionnaire-9 Score 0 10/08/2023 Patient Health Questionnaire-9 Score 0 10/08/2023 Last PHQ-9: Questionnaire Data Not on file 1 12/09/2022 Housing Stability Answer Date Recorded What is your housing situation today? I have frank sebastian 10/08/[address] you li ve. Do you have problems with any of the following? None of the above 10/08/2023 Food Insecurity Answer Date Recorded Within the past 12 months, y ou worried that your food would run out before you got money to buy more: Never True 08/23/2023 Within the past 12 months,th e food you bought just didn't last and you didn't have enough money to get more: Never True Transportation Answer Date Recorded In the past 12 months, has l ack of transportation kept you from medical appts, meetings, work or from getting things needed for daily living? No 08/23/2023 Utilities Answer Date Recorded In the past 12 months, has t he electric, gas, oil or water company threatened to shut off services in your home? No 08/23/2023 Depression Answer Date Recorded Patient Health Questionnaire-2 Score 0 10/08/2023 Comments Unknown Sex and Gender Information Value Date Recorded Sex Assigned at Female 08/27/2022 10:14 AM EDT Legal Sex Female 10:14 AM EDT Gender Identity Female 08/27/2022 10:14 AM EDT Sexual Orientation Straight 08/27/2022 10 :14 AM EDT documented as of this encounter Miscellaneous Notes * Telephone Encounter - Ellen Yang - 05/22/2024 8:57 AM EDT Called pt x2 in order to r/s CGM initiation, pt have appt with PCP today and can not have a nurse visit the same day. No answer. documented in this encounter Plan of Treatment Upcoming Encounters Date Type Department Care Team (Late st Contact Info) Description 05/20/2025 10:30 AM EDT Clinical Support [facility] MEDICINE [address] [place] [address] Farnaz Miguel RN documented as of this encounter Visit Diagnoses Not on filedocumented in this encounter Additional Health Concerns Assessment Noted Time PHQ-9 Depression Total Score: 0 10/08/20 23 9:07 AM EST documented as of this encounter Care Teams General Repair Mechanic Relationship Specialty Start Date End Date Nahomy Patino DO [address] [place] [address] PCP - General Family Medicine 10/28/18 documented as of this encounter
== END 2025-04-21 08:42 | disposition home or self-care (01) ==
LOC: HO.HHCX 08:41
PROVIDERS: PCP Family Medicine; Visit Provider Family Medicine
DX: M25.562 Pain in left knee (principal); G89.29 Other chronic pain
CPT/HCPCS: 73564

== ENCOUNTER → 2025-04-21 08:47 | Outpatient (BNV) | payer MEDICAID, SELFPAY | PROVIDERS: PCP Family Medicine; Visit Provider Radiology Diagnostic Radiology | DX: M17.12 Unilateral primary osteoarthritis, left knee (principal) | CPT/HCPCS: 73564 ==

== ENCOUNTER 2025-05-20 16:16 | Outpatient (REF) | payer MEDICAID, SELFPAY | END 2025-05-20 16:17 | disposition home or self-care (01) | LOC: HO.HHCLNP 16:16 | PROVIDERS: Visit Provider Family Medicine | DX: Z79.891 Long term (current) use of opiate analgesic (principal) | CPT/HCPCS: 36415; 80353 ==

== ENCOUNTER 2025-07-22 11:16 | Outpatient (REF) | payer MEDICAID, SELFPAY ==
--- NOTE | ~2025-07-22 | XR_ITS ---
Exam: X-ray, bilateral knees.XR KNEES ANTEROPOSTERIOR STANDING BILATERAL TECHNIQUE: Three views lower extremity joint, bilateral knees INDICATION: M25.561 - Pain in right knee COMPARISON: April 21, 2025 left knee May 02, 2017] FINDINGS: RIGHT KNEE: There is no joint effusion. There is mild narrowing of the medial joint space. There is mild narrowing of the lateral patellofemoral joint. Small marginal osteophytes present along the medial joint line. Intercondylar posterior peaked. There is faint chondrocalcinosis in the lateral meniscal body. LEFT KNEE: There is mild narrowing of the medial joint space. There is mild narrowing of the lateral patellofemoral joint. There are small marginal osteophytes. Intercondylar tubercles are peaked. There is faint chondrocalcinosis in the medial meniscal body and likely in the lateral meniscus. 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 Left knee: Mild osteoarthritis likely secondary to CPPD arthropathy. Electronically signed by: Brandan Colin MD 07/22/2025 02:13 PM EDT
--- OUTSIDE RECORDS SUMMARY | 2025-07-23 13:07 | XMS_ITS | Encounter Summary ---
Author Organization [employer] Address [address] [facility] 7t [place] [address] Care Team Providers Care Chief Learning Officer Name Role Phone Nahomy Patino Primary Care Provider + [phone] Encounter Details Date Type Department Care Team (Late Contact Info) Description 12/24/2022 Orders Only [facility] [address] [place] [address] [phone] Tete Herring LPN Social History Tobacco Use [...] Info) Description 08/03/2025 9:30 AM EDT Telemedicine [address] [phone] Farnaz Miguel RN documented as of this encounter Visit Diagnoses Not on filedocumented in this encounter Additional Health Concerns Assessment Noted Time PHQ-9 Depression Total Score: 12 023 12:05 PM EST documented as of this encounter Care Teams Chief Learning Officer Relationship Specialty Start Date End Date Nahomy Patino DO [address] [place] [address] PCP - General Family Medicine 10/28/18 documented as of this encounter
--- OUTSIDE RECORDS SUMMARY | 2025-07-23 13:07 | XMS_ITS | Encounter Summary ---
Author Organization [employer] Address [address] [facility] 7t [place] [address] Care Team Providers Care Code Clerk Name Role Phone Nahomy Patino DO Primary Care Provider + [phone] Reason for Visit * Reason Comments Med Refill Encounter Details Date Type Department Care Team (Late st Contact Info) Description 11/15/2023 Refill [facility] [address] [place], [place] [phone] Nahomy Patino DO [address] [place], [place] [phone] Chronic low back pain, unspecified back pain [...] Info) Description 08/03/2025 9:30 AM EDT Telemedicine [facility] [address] [place] [phone] Farnaz Miguel RN documented as of this encounter Visit Diagnoses Diagnosis Chronic low back pain, unspecified back pain laterality, unspecified whether sciatica present documented in this encounter Additional Health Concerns Assessment Noted Time PHQ-9 Depression Total Score: 0 10/08/20 23 9:07 AM EST documented as of this encounter Care Teams Code Clerk Relationship Specialty Start Date End Date Nahomy Patino DO [address] [place] [phone] PCP - General Family Medicine 10/28/18 documented as of this encounter
--- OUTSIDE RECORDS SUMMARY | 2025-07-23 13:07 | XMS_ITS | Clinical Summary ---
Author Organization [employer] Address [address] [facility] 7t [place] [address] Care Team Providers Care Manager Intelligence Name Role Phone JustinaNahomy santiago Primary Care Provider +[phone] Allergies No known active allergies Medications polyvinyl [...] DAY 100 each 03/27/20 Active Continuous Glucose Benefits Specialist Recruiter (FreeStyle Genevieve 2 [place]) device Scan sensor every 8 hours 1 [...] complication, with long-term current use of insulin (CMS/[facility]),Other hyperlipidemia Take 1 tablet (81 [...] complication, with long-term current use of insulin ([facility]) USE 1 SPRAY (3MG) IN [...] Continuous Glucose Sensor (FreeStyle Genevieve 2 Sensor) [facility] USE DIRECTED, CHANGE EVERY 14 DAYS 2 [...] -advised schedule pelvic US -keep eval w/ CERTIFIED CAREGIVER next week as scheduled Healthcare maintenance 11/28/2022 [...] daily -s/p optho eval Sep 2020 at [facility]->advised reschedule eval -foot exam next visit Chronic bilateral low back pain 08/19/2015 Assessment & Plan (11/28/2022 12:37 PM EST): With persistent severe pain -L-spine MRI w/ [id number] multilevel degenerative spondyloarthropathy (similar to 2020) DEC [...] Type Department Care Team Description 07/19/2025 Telephone [facility] MEDICINE [address] [place] [address] Farnaz Miguel RN Error (VOID this visit) 07/16/2025 Telephone [facility] MEDICINE [address] [place] [address] Nahomy Patino, Needs WIRE HARNESS ASSEMBLER Tele appt 07/09/2025 Outside Procedure [facility] OPTOMETRY [address] [place] [address] Antwan Salmonn, OD Presbyopia (Primary Dx) 06/24/2025 9:45 AM EDT Office Visit [facility] OPTOMETRY [address] [place] [address] Antwan Salmonn, OD Hyperopia of both eyes (Primary Dx) 06/17/2025 1:40 PM EDT Office Visit [facility] WALK[facility]IN CENTER [address] [place] [phone] Carmen Gerard MD Constipation, unspecified constipation type (Primary Dx) 06/17/2025 1:00 PM EDT Clinical Support [address] [address] Farnaz Miguel RN Long-term current use of opiate analgesic (Primary Dx) 06/17/[address] [address] Farnaz Miguel RN Chronic bilateral low back pain, unspecified whether sciatica present; Constipation, unspecified constipation type 06/17/2025 Travel 06/09/2025 Telephone [facility] MED & PEDS [address] [place], [place] [phone] Nahomy Patino DO Prior Authorization 06/03/[address] [address] Farnaz Miguel RN NCNS WIRE HARNESS ASSEMBLER RV today 05/31/[address] [address] Nahomy Patino DO CGM sensors 05/28/2025 3:30 PM EDT Office Visit [facility] OPTOMETRY [address] [place] [address] [phone] Antwan Salmonn, OD 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); Meibomian gland disease of both eyes, unspecified eyelid; Mixed type age-related cataract, both eyes; Dominant drusen, bilateral; Presbyopia 05/28/2025 Travel 05/25/2025 Refill [facility] MEDICINE [address] [place], [place] [address] [address] Nahomy Patino DO 05/24/2025 Telephone [facility] [place] [address] Farnaz Miguel RN Abnormal UTOX; Pt scheduled BS CERTIFIED CAREGIVER 08/18/25 05/20/2025 10:30 AM EDT Clinical Support [facility] MED[facility] [place] [address] Farnaz Miguel, RN Long-term current use of opiate analgesic (Primary Dx) 05/20/2025 Refill [facility] [place] [address] Farnaz Miguel RN Chronic bilateral low back pain with left-sided sciatica 05/20/2025 Travel 04/27/2025 Refill [facility] WALK[facility] [address] [place] [address] Nahomy Patino DO 04/26/2025 Orders Only [facility] MEDICINE [address] [place], [place] [address]j[place] [address] Nahomy Patino DO Seizure disorder (CMS/HCC) (Primary Dx) 04/25/2025 Refill [facility] WALK[facility] [address] [place] [address] Nahomy Patino DO from Last 3 Months [...] 08/03/2025 9:30 AM EDT Telemedicine [facility] MEDICINE [address] [place] [address] Farnaz Miguel, RN Health Maintenance Due Date [...] Screening 06/17/2026 06/17/2025 Eye Exam 05/28/2027 05/28/2025, 08/0 10/2024, 05/28/2025, Additional history exists DTaP/Tdap/Td Vaccines (3 [...] EDT Long-term current use of opiate analgesic POCT GLYCATED HEMOGLOBIN, TOTAL Routine 04/19/2025 11:47 [...] ZZZ HISTORICAL HPV E6/E7 RFLX MATTHEW 16 1845 Routine 08/22/2018 11:15 AM EDT from Last [...] procedure / Unknown 06/17/2025 1:14 PM EDT Farnaz Hill, RN - 06/17/2025 1:14 PM EDT UTOX cup Lot#[id number] Exp. 08/03/26 Internal Pass Control Nahomy Patino DO POINT OF CARE TEST ENTER/SAUMYA T ORDERABLES Final Result * Fundus Photos - OU - Both Eyes (05/28/2025 3:30 PM EDT) Sandhya Leonardo, OD - 06/16/2025 4:18 PM EDT Images [...] findings. Will monitor at her next exam. Sandhya Luis Antonio OD OPHTH PHOTOGRAPHY Edited Resu lt - Final * Drug Monitoring, Cocaine Metabolite, Quantitative, Urine (05/20/2025 10:30 AM EDT) Benzoylecgonine 157 [facility] Comment:[id number] ng/mL Cocaine Comments SEE NOTE [facility] Comment:NOTES AND COMMENTSTh is drug testing is for medical treatment only. Analysiswas performed as non-forensic testing and these resultsshould be used only by healthcare providers torender diagnosis or treatment, or to monitor progress ofmedical conditions.Cocaine Notes:Benzoylecgonine detected is consistent with the use of thedrug Cocaine.LDT Notes:Confirmation tests were developed and their analyticalperformance characteristics have been determined by [employer]. It has not been cleared orapproved by the FDA. This assay has been validated pursuantto the CLIA regulations and is used for clinical purposes.Healthcare Providers needing Interpretation assistance,please contact us at [phone] ( ) M-F,8am to 10pm ESTPERFORMING SITE:[facility] [employer] [facility], [address] [place] [phone] Junk Removal Specialist: LUCA BALDERAS MD, CLIA:[id number] Urine (Urine, Random) 05/20/2025 10:30 AM EDT 05/20/2025 4:16 PM EDT Nahomy Patino DO LAB URINE ORDERABLES Final R esult [facility] [address] [place] [phone] * (ABNORMAL) POCT HGB A1C (04/19/2025 11:47 AM EDT) Hemoglobin A1C 7.3(A) 4.0 - 6.0 % QC Media Lot # [id number] Lot# Expiration Date ,820 Blood 04/19/2025 11:4 7 AM EDT Nahomy Patino DO POINT OF CARE TEST ENTER/SAUMYA T ORDERABLES Final Result * Hepatitis C Antibody with Reflex to HCV, RNA, Quantitative, Real-Time PCR (07/15/2024 8:29 AM EDT) Hepatitis C Antibody Nonreactive Nonreactive [facility] Comment:Antibodies to HCV no t detected; does not exclude early acuteHCV infection. Blood Venous blood specimen / Unknown 07/15/2024 8:29 AM EDT 07/15/2024 10:46 AM EDT Nahomy Carey LAB BLOOD ORDERABLES Final R esult Performing Organization Address City/Special Care [facility]/ZIP Co de Phone Number [facility] [address] [place] [phone] * HIV-1/2 Antigen and Antibodies, Fourth Generation, with Reflexes (07/15/2024 8:29 AM EDT) HIV AB/AG Nonreactive Nonreactive [facility] Comment:HIV-1 p24 Ag and/or HIV-1/HIV-2 Ab not detected.A test result that is nonreactive does not exclude thepossibility of exposure to or infection with HIV-1 and/orHIV-2. Nonreactive results in this assay for individualswith prior exposure to HIV-1 and/or HIV-2 may be due toantigen and antibody levels that are below the limit ofdetection of this assay.The evly HIV Ag/Ab Combo assay result andsupplemental assay results should be interpreted inconjunction with the patient's clinical presentation,history and other laboratory results. If the results areinconsistent with clinical evidence, additional testing issuggested to confirm the result. Blood Venous blood specimen / Unknown 07/15/2024 8:29 AM EDT 07/15/2024 10:46 AM EDT Nahomy Carey LAB BLOOD ORDERABLES Final R esult Performing Organization Address City/[facility]/ZIP Co de Phone Number [facility] [address] [place] [phone] * (ABNORMAL) Lipid Panel, Standard (07/15/2024 8:29 AM EDT) Triglycerides 70 <150 mg/dL [facility] Comment:Desirable Triglyceri de: less than 150 mg/dLBorderline High Triglyceride 150-199 mg/dLHigh Triglyceride: 200-499 mg/dLVery High Triglyceride: greater than or equal to 5OO mg/dL Cholesterol 195 <200 mg/dL [facility] Comment:Desirable Cholestero l: less than 200 mg/dLBorderline High Cholesterol: 200-239 mg/dLHigh Cholesterol: greater than 239 mg/dL LDL Cholesterol Calculated 137(H) <100 mg/dL [facility] Comment:Desirable LDL: less than 100 mg/dLNear Optimal/Above Optimal LDL: 110- 129 mg/dLBorderline High LDL: 130-159 mg/dLHigh LDL: 160-189 mg/dLVery High LDL: greater than or equal to 190 mg/dL HDL Cholesterol 44 >40 mg/dL [facility] Comment:Desirable HDL: great er than 40 mg/dL Note: This HDL assay may give artificially low results in patients with liver disease. Blood Venous blood specimen / Unknown 07/15/2024 8:29 AM EDT 07/15/2024 10:46 AM EDT us Nahomy Patino DO LAB BLOOD ORDERABLES Final R esult [facility] [address] [place] [address] [phone] * Albumin, Random Urine W/Creatinine (07/15/2024 8:25 AM EDT) Creatinine, Urine 91.96 mg/dL [facility] Microalbumin Urine 11.0 mg/L [facility] Microalbum Creatinine Ratio Ur 11.9 <30 ug/mg cr [facility] Comment:Albumin/Creatinine R atio Reference Ranges: Normal: < 30 ug/mg creatinine Microalbuminuria: 30 - 300 ug/mg creatinineClinical Albuminuria: > 300 ug/mg creatinine Urine (Urine, Random) 07/15/2024 8:25 AM EDT 07/15/2024 10:51 AM EDT us Nahomy Patino DO LAB URINE ORDERABLES Final R esult [facility] [address] [place] [address] [phone] * BI Mammogram Screening Tomosynthesis Bilateral (06/10/2024 3:35 PM EDT) Anatomical Region Laterality Modality Breast Bilateral Mammography 06/10/2024 3:35 PM EDT Narrative 07/08/2024 12:56 PM EDT [address] [place] [address] Mammography Report Signed with Addenda Patient: Michelle Driscoll MR#: [id number] : 1965 Acct:[id number] Age/Sex: 59 / F ADM Date: 06/10/24 Loc: [facility]IE Attending Dr: Nahomy Patino DO Ordering Physician: Nahomy Patino DO Results: 1N egative Date of Service: 06/10/24 Follow Up: 1 Year From Orig inal Mammogram Procedure(s): MM tomosynthesis screening BI Accession Number(s): [id number] cc: Nahomy Patino DO ADDENDUM ADDENDUM #1 [...] Holly Sanchez MD 07/08/2024 12:53 PM EDT Dictated By: Holly Sanchez MD Signed By: <Electronically signed by Holly Sanchez MD in OV> 07/08/24 1253 DD/ 1535 TD/TT: 06/10/24 1550 Carpet Sewer: Procedure Note Donotuseinterpreter, Image - 07/13/2024 [facility] [address] [place], [place] [address] Mammography Report Signed with Addenda Patient: Michelle DriscollMR#: [id number] : 1965Acct:[id number] Age/Sex: 59 / FADM Date: 06/10/24 Loc: HO.MAMMO Attending Dr: Nahomy Patino DO Ordering Physician: Nahomy Patinoults: 1N egative Date of Service: 06/10/24Follow Up: 1 Year From Orig inal Mammogram Procedure(s): MM tomosynthesis screening BI Accession Number(s): [id number] cc: Nahomy Patino DO ADDENDUM ADDENDUM #1 [...] 07/08/24 1253 DD/ 34 TD/TT: 06/10/24 155 Carpet Sewer: us Nahomy Patino DO IMG BI PROCEDURES Edited Res ult - Final * HPV E6/E7 RFLX MATTHEW 16 18/45 (08/22/2018 11:15 AM EDT) ADDITIONAL TESTING Not indicated () [facility] Comment: Test Performed by [facility], [address] [place], [address] [place], [place] Vazquez Whitney M.D., Ph.D., Director of Laboratories , CLIA [id number] HPV 16 RNA Test not performed [facility] HPV 18/45 RNA Test not performed [facility] HPV mRNA E6/E7 Not Detected NOT DETECTED [facility] Comment: This test was performed using the APTIMA(R) HPV Assay ([employer] This assay detects E6/E7 viral messenger RNA (mRNA) from 14 high-risk HPV types (16,18,31,33,35,39,45,51, 52,56,58,59,66,68). For additional information please refer to: http://education.Inbilin/faq/SZY688r6 (This link is being provided for informational/ educational purposes only.) The analytical performance characteristics of this assay have been determined by [employer] [place], [place]. The modifications have not been cleared or approved by the FDA. This assay has been validated pursuant to the CLIA regulations and is used for clinical purposes. Please note: Effective 07/09/2016, HPV testing will be performed using [employer]'s APTIMA test which targets mRNA. Detecting mRNA instead of DNA, as in older methods, offers significant improvements in specificity. 08/22/2018 11:1 5 AM EDT us Nahomy Patino DO HISTORICAL/NON ORDERABLE LAB S Final Result [facility] [address] from Last 3 Months or Most Recently Relevant to Health Maintenance Insurance [facility] C3 Care Teams Manager Intelligence Relationship Specialty Start Date End Date Nahomy Patino DO [address] [place] [phone] PCP - General Family Medicine 10/28/18
--- OUTSIDE RECORDS SUMMARY | 2025-07-23 13:07 | XMS_ITS | Encounter Summary ---
Author Organization [employer] Address [address] [place] [address] 7t [place] [address] Care Team Providers Care Practice Administrator Name Role Phone Nahomy Patino Primary Care Provider + [phone] Encounter Details Date Type Department Care Team (Late Contact Info) Description 11/30/2022 Orders Only [address] [phone] Mackenzie Webb, RN Social History Tobacco Use [...] Info) Description 08/03/2025 9:30 AM EDT Telemedicine [address] [phone] Farnaz Miguel, JULIA documented as of this encounter Procedures Procedure Name Priority Date/Time Associated Diagnosis Comments US PELVIS TRANSVAGINAL Routine 12/04/2022 1:20 PM EST documented in this encounter Results * US Pelvis Transvaginal (12/04/2022 1:20 PM EST) Anatomical Region Laterality Modality Pelvis Ultrasound 12/04/2022 1:20 PM EST Narrative 12/05/2022 6:26 PM EST [facility] Adult Primary Care [facility] [place] [address] Ultrasound Report Signed Patient: Michelle Driscoll MR#: [id number] : 1965 Acct:[id number] Age/Sex: 57 / F ADM Date: 12/04/22 Loc: HO.HMGCX Attending Dr: Nahomy Patino DO Ordering Physician: Nahomy Patino DO Date of Service: 12/04/22 Procedure(s): US pelvic and transvaginal Accession Number(s): [id number] cc: Nahomy Patino DO EXAMINATION: US PELVIS [...] MD in OV> 12/05/221822 DD/ 1320 TD/TT: Backend Python Developer: BELLA Procedure Note Donotuseinterpreter, Image - 12/05/2022 [facility] Adult Primary Care [facility] [place] [address] Ultrasound Report Signed Patient: Michelle DriscollMR#: [id number] : 1965Acct:[id number] Age/Sex: 57 / FADM Date: 12/04/22 Loc: HO.HMGCX Attending Dr: Nahomy Patino DO Ordering Physician: Nahomy Patino DO Date of Service: 12/04/22 Procedure(s): US pelvic and transvaginal Accession Number(s): [id number] cc: Nahomy Patino DO EXAMINATION: US PELVIS [...] MD in OV> 12/05/221822 DD/ 1320 TD/TT: Backend Python Developer: BELLA [facility] External Provider IMG US PROCEDURES Final Result documented in this encounter Visit Diagnoses Not on filedocumented in this encounter Additional Health Concerns Assessment Noted Time PHQ-9 Depression Total Score: 12 023 12:05 PM EST documented as of this encounter Care Teams Practice Administrator Relationship Specialty Start Date End Date Nahomy Patino DO [address] [place] [phone] PCP - General Family Medicine 10/28/18 documented as of this encounter
--- OUTSIDE RECORDS SUMMARY | 2025-07-23 13:07 | XMS_ITS | Encounter Summary ---
Author Organization [employer] Address [address] [facility] 7t [place] [address] Care Team Providers Care Faculty Support Coordinator Name Role Phone Nahomy Patino DO Primary Care Provider + [phone] Reason for Visit * Reason Comments Med Refill Encounter Details Date Type Department Care Team (Late st Contact Info) Description 08/23/2023 Refill [facility] [address] [place], [place] [phone] Nhaomy Patino DO [address] [place], [place] [phone] Other chronic pain Social History Tobacco Use [...] Info) Description 08/03/2025 9:30 AM EDT Telemedicine [facility] [address] [place], [place] [phone] Farnaz Miguel RN documented as of this encounter Visit Diagnoses Diagnosis Other chronic pain documented in this encounter Additional Health Concerns Assessment Noted Time PHQ-9 Depression Total Score: 12 023 12:05 PM EST documented as of this encounter Care Teams Faculty Support Coordinator Relationship Specialty Start Date End Date Nahomy Patino DO [address] [place] [address] PCP - General Family Medicine 10/28/18 documented as of this encounter
--- OUTSIDE RECORDS SUMMARY | 2025-07-23 13:07 | XMS_ITS | Encounter Summary ---
Author Organization [employer] Address 75 [facility] 7t [place] [address] Care Team Providers Care Project Management Manager Name Role Phone Nahomy Patino DO Primary Care Provider + [phone] Reason for Visit * Reason Onset Date Comments Appointment Request 08/26/2024 Encounter Details Date Type Department Care Team ([facility] st Contact Info) Description 08/26/2024 Telephone [facility] [address] [place], [place] [phone] Nahomy Patino DO [address] [place], [place] [phone] Appointment Request Social History Tobacco Use Types [...] EDT Return TC to patient, pt cancelled JOB PRESS FEEDER RV appt 09/14/24, states she's traveling to [place] today and wont be back until after Thanksgiving. JOB PRESS FEEDER RV rescheduled for 09/28/24 @ 10:30am * Telephone Encounter - Akiko Ocampo - 08/26/2024 10:08 AM EDT Tc from pt called in to cancel 09/14/24 appt. States is on vacation and does not return after thanksgiving. documented in this encounter Plan of Treatment Upcoming Encounters Date Type Department Care Team (Late st Contact Info) Description 08/03/2025 9:30 AM EDT Telemedicine [facility] [address] [place] [address] Farnaz Miguel, RN documented as of this encounter Visit Diagnoses Not on filedocumented in this encounter Additional Health Concerns Assessment Noted Time PHQ-9 Depression Total Score: 0 10/08/20 23 9:07 AM EST documented as of this encounter Care Teams Project Management Manager Relationship Specialty Start Date End Date Nahomy Patino DO [address] [place] [address] PCP - General Family Medicine 10/28/18 documented as of this encounter
--- OUTSIDE RECORDS SUMMARY | 2025-07-23 13:07 | XMS_ITS | Encounter Summary ---
Author Organization [employer] Address 75 [facility] 7t [place] [address] Care Team Providers Care Foam Tank Laminator Name Role Phone Nahomy Patino Primary Care Provider + [phone] Reason for Visit * Reason Onset Date Comments Error (VOID this visit) 07/19/2025 Encounter Details Date Type Department Care Team ([facility] st Contact Info) Description 07/19/[address] [facility] [address] [place], [place] [phone] Farnaz Miguel RN Error (VOID this visit) Social History [...] Info) Description 08/03/2025 9:[address] [facility] [address] [place] [address] Farnaz Miguel RN documented as of this encounter Visit Diagnoses Not on filedocumented in this encounter Additional Health Concerns Assessment Noted Time PHQ-9 Depression Total Score: 11 025 1:10 PM EDT documented as of this encounter Care Teams Foam Tank Laminator Relationship Specialty Start Date End Date Nahomy Patino DO [address] [place] [address] PCP - General Family Medicine 10/28/18 documented as of this encounter
--- OUTSIDE RECORDS SUMMARY | 2025-07-23 13:07 | XMS_ITS | Encounter Summary ---
Author Organization [employer] Address 75 [facility] 7t [place] [address] Care Team Providers Care Weed Thinner Name Role Phone Nahomy Patino DO Primary Care Provider [phone] Encounter Details Date Type Department Care Team (Latest Contact Info) Description 09/26/2020 Abstract [facility] CON[facility] Dental, Provider, DDS Social History [...] Info) Description 08/03/2025 9:30 AM EDT Telemedicine [facility] MEDICINE [address] [place] [address] Farnaz Miguel RN documented as of this encounter Visit Diagnoses Not on filedocumented in this encounter Care Teams Weed Thinner Relationship Specialty Start Date End Date Nahomy Patino DO [address] [place] [address] PCP - General Family Medicine 10/28/18 documented as of this encounter
--- OUTSIDE RECORDS SUMMARY | 2025-07-23 13:07 | XMS_ITS | Encounter Summary ---
Author Organization [employer] Address 75 [facility] 7t [place] [address] Care Team Providers Care Fitter/Welder Name Role Phone Nahomy Patino DO Primary Care Provider + [phone] Reason for Visit * Reason Onset Date Comments Reschedule 05/22/2024 Encounter Details Date Type Department Care Team ([facility] st Contact Info) Description 05/22/2024 Telephone [facility] MED[facility] [address] [place], [place] [phone] Nahomy Patino DO [address] [place], [place] [phone] Reschedule Social History Tobacco Use Types Packs/Day [...] 08/03/2025 9:30 AM EDT Telemedicine [facility] MED[facility] [address] [place] [address] Farnaz Miguel RN documented as of this encounter Visit Diagnoses Not on filedocumented in this encounter Additional Health Concerns Assessment Noted Time PHQ-9 Depression Total Score: 0 10/08/20 23 9:07 AM EST documented as of this encounter Care Teams Fitter/Welder Relationship Specialty Start Date End Date Nahomy Patino DO [address] [place] [address] PCP - General Family Medicine 10/28/18 documented as of this encounter
--- OUTSIDE RECORDS SUMMARY | 2025-07-23 13:07 | XMS_ITS | Encounter Summary ---
Author Organization [employer] Address 75 [facility] 7t [place] [address] Care Team Providers Care Contaminated Land Consultant Name Role Phone Nahomy Patino Primary Care Provider + [phone] Reason for Visit * Reason Comments Med Refill Encounter Details Date Type Department Care Team (Late st Contact Info) Description 01/29/2024 Refill [facility] WALK-IN [address] [phone] Name, MD Dustin [address] [place], [place] [phone] Social History Tobacco Use Types Packs/Day Years [...] Info) Description 08/03/2025 9:30 AM EDT Telemedicine [facility] [address] [place] [address] Farnaz Miguel RN documented as of this encounter Visit Diagnoses Not on filedocumented in this encounter Additional Health Concerns Assessment Noted Time PHQ-9 Depression Total Score: 0 10/08/20 23 9:07 AM EST documented as of this encounter Care Teams Contaminated Land Consultant Relationship Specialty Start Date End Date Nahomy Patino DO [address] [place] [address] PCP - General Family Medicine 10/28/18 documented as of this encounter
== END 2025-07-22 11:17 | disposition home or self-care (01) ==
LOC: HO.HOSX 11:16
PROVIDERS: Visit Provider Physician Assistant
DX: M22.2X1 Patellofemoral disorders, right knee (principal); M22.2X2 Patellofemoral disorders, left knee
CPT/HCPCS: 20610; 73565; 99212; J0665; J1100; J2003

== ENCOUNTER 2025-07-22 13:32 | Outpatient (AMB) | payer MEDICAID, SELFPAY ==
--- NOTE | 2025-07-22 13:51 | MHC.OFFVIS ---
Vital Signs 07/22/25 13:57 Height 5 ft 1 in Weight 225 lb BMI 42.5 Intake Visit Reasons: New prob-Lt knee pain, last inj 12/20/20 Intake Note: Michelle is a 60 year old female who presents today for an evaluation of left knee pain. Patient was seen here on 12/20/20 for her left knee and was given an injection. Patient reports that her pain has gotten worse since her last visit. Complaints of cracking and clicking with standing up. Her knee feels unstable like if it wants to give out, however denies giving out. At times her pain is severe causing her to have to drag her leg. She would like to discuss her options today. She was given a knee brace in the past, stating it now feels a little tight. Allergies No Known Allergies Allergy (Verified 07/22/25 14:00) Medication List - Last Reconciled 07/22/25 by León Zapata PA-C atorvastatin (Lipitor) 20 mg PO BEDTIME cholecalciferol (vitamin D3) 50 mcg PO DAILY citalopram (Celexa) 20 mg PO DAILY cyclobenzaprine 10 mg PO TID PRN dulaglutide (Trulicity) mg subcut QWEEK fluticasone propionate 50 mcg/actuation (Flonase Allergy Relief) 2 sprays intranasal DAILY gabapentin 600 mg PO BID glipizide 5 mg PO BID hydrochlorothiazide 25 mg PO DAILY lidocaine 5% (Lidoderm) 1 patch topical DAILY lisinopril 40 mg PO DAILY loratadine (Claritin) 10 mg PO DAILY naloxone 4 mg/actuation (Narcan) 1 spray intranasal Q2M oxcarbazepine 150 mg PO BID oxycodone-acetaminophen 5-325 mg (Percocet) 1 tab PO Q6H PRN tizanidine 2 mg PO Q8H PRN HPI HPI New prob-Lt knee pain, last inj 12/20/20: Details: 60-year-old female presents to the office today for right knee pain. She was last seen in November of 2020 where she had an injection in her left knee which was helpful for quite some time. Over the last several months she has developed worsening pain in both knees but more so the left. She complains of swelling. She states she has limitations with stairs and walking long distances. This has limited her ability to exercise which has caused her to gain weight. She does have a history of cocaine use, she states she has been clean for 6 months. She is receiving Percocet prescribed by her primary care provider. She states since she has had this she has not needed to use illicit drugs. [facility] Medical History Cyst Arthritis High blood pressure Diabetes 1.5, managed as type 1 Social History Alcohol intake: current Alcohol intake frequency: holidays/special occasions only Substance Use Type: Crack/Cocaine Current occupational status: disabled Current occupation: Right Handed Review of Systems Const All systems reviewed & are unremarkable except as noted in HPI and below Physical Exam Vital Signs: BMI result Body Mass Index 42.5 Const General: cooperative and no acute distress Orientation/consciousness: patient oriented x3 Resp Effort & Inspection: normal respiratory effort and able to speak in complete sentences Cardio Peripheral pulses: Peripheral pulses 2+ throughout Neuro General: patient oriented x3 Extrem Other: Left knee skin intact, no erythema or joint effusion. Tenderness along the medial joint line. ROM full with crepitus. Negative steinmans. No ligamentous laxity. NVI. Office Procedures AMB Joint Injection/Aspiration Joint Injection/Aspiration Primary Site: left knee Prep: site was prepped using aseptic technique, ethochloride spray was applied and injection warnings given Injected: 40 mg of, with 3 mL of, 1% plain lidocaine, 0.25% bupivacaine, in the joint and decadron Approach Used: anterolateral Procedure: The patient tolerated the procedure well and there was some relief with the local anesthesia Coding 45903 - Glenohumeral/Tronchanteric Bursa/Intraarticular Procedure code (CPT) selection complete Results Reviewed Results Reviewed: X-rays of both knees obtained in the office today and reviewed by me show medial compartment arthritis with patellofemoral OA Assessment & Plan Assessment & Plan (1) Patellofemoral pain syndrome of left knee: Code(s): M22.2X2 - Patellofemoral disorders, left knee Category: Medical Plan: We discussed options today which includes physical therapy and steroid injection. We did elect to go forward with a left knee injection which she tolerated well. I also explained to the patient if we got to the point where we would entertain surgical intervention she would need to work on weight management as her BMI is 42 and the cut off for TKA is 40. I also explained the importance of avoiding illicit drug use as this poses a risk postoperatively with surgery. The patient does express understanding and she will follow up in 3 months if she continues to have left knee pain otherwise as needed. Orders: Orders XR knee standing BI Today M25.561 - Pain in right knee, M25.562 - Pain in left knee Coding Level of Care Code Est Pt Level 3 (37225) Complex EM visit Add On G2211 Diagnoses Patellofemoral pain syndrome of left knee M22.2X2 CPT Codes Coding - Joint 7: 86468 - Glenohumeral/Tronchanteric Bursa/Intraarticular ([id number])
[2025-07-22 13:57] VITALS: BMI 42.5
--- OUTSIDE RECORDS SUMMARY | 2025-07-22 18:04 | XMS_ITS | Encounter Summary ---
Author Organization [employer] Address [address] [place] [address] 7[address] [place] [address] Care Team Providers Care Plywood Layup Line Core Feeder Name Role Phone Nahomy Patino Primary Care Provider + [phone] Encounter Details Date Type Department Care Team (Late Contact Info) Description 11/30/2022 Orders Only [address] [phone] Mackenzie Webb, RN Social History Tobacco Use Types Packs/Day Years Used Date Smoking Tobacco: Every Day Cigarettes Passive Smoke Exposure: Current Alcohol Use Standard Drinks/Week Comments Never 0 (1 standard drink = 0.6 oz pur e alcohol) Depression Answer Date Recorded Patient Health Questionnaire-9 Score 12 11/28/2022 Depression Answer Date Recorded Patient Health Questionnaire-2 Score 5 11/28/2022 Comments Unknown Sex and Gender Information Value Date Recorded Sex Assigned at Female 08/27/2022 10:14 AM EDT Legal Sex Female 10:14 AM EDT Gender Identity Female 08/27/2022 10:14 AM EDT Sexual Orientation Straight 08/27/2022 10 :14 AM EDT COVID-19 Exposure Response Date Recorded In the last 10 days, have yo u been in contact with someone who was confirmed or suspected to have Coronavirus/COVID-19? No / Unsure 11/30/2022 10:01 AM EST documented as of this encounter Plan of Treatment Upcoming Encounters Date Type Department Care Team (Late st Contact Info) Description 08/03/2025 9:30 AM EDT Telemedicine [address] [phone] Farnaz Miguel, JULIA documented as of this encounter Procedures Procedure Name Priority Date/Time Associated Diagnosis Comments US PELVIS TRANSVAGINAL Routine 12/04/2022 1:20 PM EST documented in this encounter Results * US Pelvis Transvaginal (12/04/2022 1:20 PM EST) Anatomical Region Laterality Modality Pelvis Ultrasound 12/04/2022 1:20 PM EST Narrative 12/05/2022 6:26 PM EST [facility] [place] [address] Ultrasound Report Signed Patient: Michelle Driscoll MR#: [id number] : 1965 Acct:[id number] Age/Sex: 57 / F ADM Date: 12/04/22 Loc: HO.HMGCX Attending Dr: Nahomy Patino DO Ordering Physician: Nahomy Patino DO Date of Service: 12/04/22 Procedure(s): US pelvic and transvaginal Accession Number(s): [id number] cc: Nahomy Patino DO EXAMINATION: US PELVIS CLINICAL INFORMATION: Endometrial thickening. COMPARISON: Pelvic ultrasound dated 09/27/2016. TECHNIQUE: Ultrasound of the pelvis is performed using both transabdominal and transvaginal transducers along with Doppler. Transvaginal imaging is performed due to inadequate visualization transabdominally. FINDINGS: Uterus: The uterus is anteverted and anteflexed. The uterus measures 8.4 x 4.0 x 5.0 cm. The double wall endometrial thickness is 13 mm. The endometrial stripe is heterogeneous echotexture. The uterus is smooth in contour and has normal myometrial echogenicity. No visible fibroid. Adnexa: The left ovary is visualized. The right ovary is not. There is normal color flow to the adnexa. There is no ovarian torsion. There is no pelvic ascites or fluid collection. The left ovary measures 2.0 x 1.7 x 2.1 cm, volume 3.8 mL. US/US pelvic and transvaginal IMPRESSION: 1. There is postmenopausal thickening of the endometrial stripe, with heterogeneous appearance. Gynecology evaluation and management is recommended, with consideration for tissue sampling. 2. Previously noted uterine fibroids are not presently redemonstrated. Dictated By: Markus Mckeon MD Signed By: <Electronically signed by Markus Mckeon MD in OV> 12/05/221822 DD/ 1320 TD/TT: Museum Attendant: BELLA Procedure Note Donotuseinterpreter, Image - 12/05/2022 [facility] [place] [address] Ultrasound Report Signed Patient: Michelle DriscollMR#: [id number] : 1965Acct:[id number] Age/Sex: 57 / FADM Date: 12/04/22 Loc: HO.HMGCX Attending Dr: Nahomy Patino DO Ordering Physician: Nahomy Patino DO Date of Service: 12/04/22 Procedure(s): US pelvic and transvaginal Accession Number(s): [id number] cc: Nahomy Patino DO EXAMINATION: US PELVIS CLINICAL INFORMATION: Endometrial thickening. COMPARISON: Pelvic ultrasound dated 09/27/2016. TECHNIQUE: Ultrasound of the pelvis is performed using both transabdominal and transvaginal transducers along with Doppler. Transvaginal imaging is performed due to inadequate visualization transabdominally. FINDINGS: Uterus: The uterus is anteverted and anteflexed. The uterus measures 8.4 x 4.0 x 5.0 cm. The double wall endometrial thickness is 13 mm. The endometrial stripe is heterogeneous echotexture. The uterus is smooth in contour and has normal myometrial echogenicity. No visible fibroid. Adnexa: The left ovary is visualized. The right ovary is not. There is normal color flow to the adnexa. There is no ovarian torsion. There is no pelvic ascites or fluid collection. The left ovary measures 2.0 x 1.7 x 2.1 cm, volume 3.8 mL. US/US pelvic and transvaginal IMPRESSION: 1. There is postmenopausal thickening of the endometrial stripe, with heterogeneous appearance. Gynecology evaluation and management is recommended, with consideration for tissue sampling. 2. Previously noted uterine fibroids are not presently redemonstrated. Dictated By: Markus Mckeon MD Signed By: <Electronically signed by Markus Mckeon MD in OV> 12/05/221822 DD/ 1320 TD/TT: Museum Attendant: BELLA [facility] External Provider IMG US PROCEDURES Final Result documented in this encounter Visit Diagnoses Not on filedocumented in this encounter Additional Health Concerns Assessment Noted Time PHQ-9 Depression Total Score: 12 023 12:05 PM EST documented as of this encounter Care Teams Plywood Layup Line Core Feeder Relationship Specialty Start Date End Date Nahomy Patino DO [address] [place] [address] PCP - General Family Medicine 10/28/18 documented as of this encounter
--- OUTSIDE RECORDS SUMMARY | 2025-07-22 18:04 | XMS_ITS | Encounter Summary ---
Author Organization [employer] Address [address] [facility] [address] [place] [address] Care Team Providers Care Rn Hemodialysis Charge Name Role Phone Nahomy Patino Primary Care Provider + [phone] Encounter Details Date Type Department Care Team (Late Contact Info) Description 12/24/2022 Orders Only [facility] MEDICINE [address] [place] [phone] Tete Herring LPN Social History Tobacco Use Types Packs/Day Years [...] Info) Description 08/03/2025 9:30 AM EDT Telemedicine [address] [phone] Farnaz Miguel RN documented as of this encounter Visit Diagnoses Not on filedocumented in this encounter Additional Health Concerns Assessment Noted Time PHQ-9 Depression Total Score: 12 023 12:05 PM EST documented as of this encounter Care Teams Rn Hemodialysis Charge Relationship Specialty Start Date End Date Nahomy Patino DO [address] [place] [address] PCP - General Family Medicine 10/28/18 documented as of this encounter
--- OUTSIDE RECORDS SUMMARY | 2025-07-22 18:04 | XMS_ITS | Encounter Summary ---
Author Organization [employer] Address [address] [facility] [address] [place] [address] Care Team Providers Care Preschool Assistant Name Role Phone Nahomy Patino DO Primary Care Provider + [phone] Reason for Visit * Reason Onset Date Comments Reschedule 05/22/2024 Encounter Details Date Type Department Care Team ([facility] st Contact Info) Description 05/22/2024 Telephone [facility] MEDICINE [address] [place], [place] [phone] Nahomy Patino DO [address] [place], [place] [phone] Reschedule Social History Tobacco Use Types Packs/Day [...] Info) Description 08/03/2025 9:30 AM EDT Telemedicine [facility] MEDICINE [address] [place] [address] Farnaz Miguel RN documented as of this encounter Visit Diagnoses Not on filedocumented in this encounter Additional Health Concerns Assessment Noted Time PHQ-9 Depression Total Score: 0 10/08/20 23 9:07 AM EST documented as of this encounter Care Teams Preschool Assistant Relationship Specialty Start Date End Date Nahomy Patino DO [address] [place] [address] PCP - General Family Medicine 10/28/18 documented as of this encounter
--- OUTSIDE RECORDS SUMMARY | 2025-07-22 18:04 | XMS_ITS | Encounter Summary ---
Author Organization [employer] Address [address] [facility] [address]t [place] [address] Care Team Providers Care Three Knife Trimmer Name Role Phone Nahomy Patino Primary Care Provider + [phone] Reason for Visit * Reason Onset Date Comments Error (VOID this visit) 07/19/2025 Encounter Details Date Type Department Care Team ([facility] st Contact Info) Description 07/19/2025 Telephone [facility] MEDICINE [address] [place], [place] [phone] Farnaz iMguel RN Error (VOID this visit) Social History Tobacco Use Types Packs/Day Years Used Date Smoking Tobacco: Every Day Cigarettes Passive Smoke Exposure: Current Smokeless Tobacco: Former Alcohol Use Standard Drinks/Week Comments Never 0 (1 standard drink = 0.6 oz pur e alcohol) Depression Answer Date Recorded Patient Health Questionnaire-9 Score 11 04/19/2025 Patient Health Questionnaire-9 Score 11 04/19/2025 Last PHQ-9: Questionnaire Data Not on file 0 04/19/2025 Housing Stability Answer Date Recorded What is your housing situation today? I have frank sebastian 04/19/[address] you li ve. Do you have problems with any of the following? None of the above 04/19/2025 Food Insecurity Answer Date Recorded Within the past 12 months, y ou worried that your food would run out before you got money to buy more: Never True 04/19/2025 Within the past 12 months,th e food you bought just didn't last and you didn't have enough money to get more: Never True Transportation Answer Date Recorded In the past 12 months, has l ack of transportation kept you from medical appts, meetings, work or from getting things needed for daily living? No 04/19/2025 Utilities Answer Date Recorded In the past 12 months, has t he electric, gas, oil or water company threatened to shut off services in your home? No 04/19/2025 Depression Answer Date Recorded Patient Health Questionnaire-2 Score 4 04/19/2025 Internet Access Answer Date Recorded Internet Access Q1 Yes 04/19/2025 Internet Access Q2 Not on file 04/19/2025 Comments No Sex and Gender Information Value Date Recorded Sex Assigned at Female 08/27/2022 10:14 AM EDT Legal Sex Female 10:14 AM EDT Gender Identity Female 08/27/2022 10:14 AM EDT Sexual Orientation Straight 08/27/2022 10 :14 AM EDT documented as of this encounter Plan of Treatment Upcoming Encounters Date Type Department Care Team (Late st Contact Info) Description 08/03/2025 9:30 AM EDT Telemedicine [facility] MEDICINE [address] [place] [address] Farnaz Miguel RN documented as of this encounter Visit Diagnoses Not on filedocumented in this encounter Additional Health Concerns Assessment Noted Time PHQ-9 Depression Total Score: 11 025 1:10 PM EDT documented as of this encounter Care Teams Three Knife Trimmer Relationship Specialty Start Date End Date Nahomy Patino DO [address] [place] [address] PCP - General Family Medicine 10/28/18 documented as of this encounter
--- OUTSIDE RECORDS SUMMARY | 2025-07-22 18:04 | XMS_ITS | Clinical Summary ---
Author Organization [employer] Address [address] [facility] [address] [place] [address] Care Team Providers Care Mobile Plant Operators Name Role Phone JustinaNahomy santiago Primary Care Provider [phone] Allergies No known active allergies Medications polyvinyl alcohol (Liquifilm Tears) 1.4 % ophthalmic solution one drop in both eyes as needed for burning. 07/31/20 21 Active polyethylene glycol, PEG, 3350 (MiraLax) 17 GM/SCOOP powder take 1 packet by oral route every day mixed with 8 oz. water, juice, soda, coffee or tea as needed for Constipation 06/13/20 22 Active Alcohol Swabs (Alcohol Prep) 70 % pads USE DIRECTED 4-6 TIMES PER DAY 120 each 03/18/20 23 Active BD Pen Needle Fiorella U/F 32G X 4 MM misc USE DAILY WITH lantus solostar 100 each 4 10/25/20 23 Active docusate sodium (Colace) 100 MG capsuleIndication s:Chronic constipation TAKE 1 CAPSULE BY MOUTH TWICE DAILY NEEDED 180 capsule 3 01/29/20 24 Active senna (Senokot) 8.6 MG tabletIndications :Chronic constipation TAKE 2 TABLETS BY MOUTH EVERY DAY AT BEDTIME NEEDED FOR CONSTIPATION 180 tablet 3 01/29/20 24 Active OXcarbazepine (Trileptal) 150 MG tabletIndications :Major depression, recurrent, chronic (CMS/HCC) TAKE 1 TABLET BY MOUTH TWICE DAILY 60 tablet 3 01/29/20 24 Active cholecalciferol (Vitamin D-3) 50 MCG (1999 UT) tabletIndications :Vitamin D deficiency TAKE 1 TABLET BY MOUTH EVERY DAY 90 tablet 3 02/18/20 24 Active HealthyLax 17 g packet Mix 1 packet in 8 ounces of water, juice, coffee or tea and drink once a day NEEDED FOR CONSTIPATION 30 packet 03/27/20 Active FREESTYLE LITE test strip TEST BLOOD SUGAR 4-6 TIMES PER DAY 200 strip 03/27/20 Active Diclofenac Sodium 1 % gel APPLY 2 GRAMS TO AFFECTED AREA(S) TWICE DAILY 100 g 03/27/20 Active TRUEplus Lancets 33G misc TEST BLOOD SUGAR 4-6 TIMES PER DAY 100 each 03/27/20 Active Continuous Glucose Kitchen Porter (FreeStyle Genevieve 2 [place]) device Scan sensor every 8 hours 1 each 04/24/20 Active LORazepam (Ativan) 0.5 MG tabletIndications :Chronic bilateral low back pain, unspecified whether sciatica present Take 1 tablet (0.5 mg) by mouth 1 (one) time for 1 dose. Prior to MRI, may repeat after 30min if needed x one dose 2 tablet 04/24/20 Active nicotine polacrilex (Commit) 2 MG lozengeIndication s:Tobacco dependence Dissolve 1 lozenge, as directed, every 1-2 hours as needed for cravings. Max 20 lozenges per 24 hours. 144 lozenge 5 06/15/20 Active naloxone (Narcan) 4 mg/0.1 mL nasal sprayIndications: Chronic low back pain, unspecified back pain laterality, unspecified whether sciatica present Administer 1 spray (4 mg) into affected nostril(s) if needed each day for opioid reversal. 2 each 2 08/13/20 24 Active melatonin 5 MG tablet TAKE 1 OR 2 TABLETS BY MOUTH EVERY DAY AT BEDTIME 60 tablet 3 09/04/20 24 Active aspirin (Aspirin Adult Low Dose) 81 MG EC tabletIndications :Type 2 diabetes mellitus without complication, with long-term current use of insulin (CMS/[facility]),Other hyperlipidemia Take 1 tablet (81 mg) by mouth Once per day. 90 tablet 3 11/05/19 25 2025 Active atorvastatin (Lipitor) 40 MG tabletIndications :Type 2 diabetes mellitus without complication, with long-term current use of insulin (CMS/HCC),Other hyperlipidemia Take 1 tablet (40 mg) by mouth Once per day. 90 tablet 11/05/19 25 Active lisinopril 40 MG tablet TAKE 1 TABLET BY MOUTH EVERY MORNING 90 tablet 3 11/13/19 25 Active hydroCHLOROthiazi de (HYDRODiuril) 25 MG tablet TAKE 1 TABLET BY MOUTH EVERY MORNING 90 tablet 11/13/19 25 Active citalopram (CeleXA) 20 MG tabletIndications :Depression, unspecified depression type TAKE 1 TABLET BY MOUTH ONCE DAILY 30 tablet 5 12/09/19 25 Active tiZANidine (Zanaflex) 2 MG tablet TAKE 1 TABLET BY MOUTH EVERY 8 HOURS NEEDED FOR MUSCLE SPASMS 60 tablet 3 02/05/20 25 Active gabapentin (Neurontin) 300 MG capsule TAKE 1 CAPSULE BY MOUTH TWICE DAILY 60 capsule 02/11/20 25 Active lidocaine (Lidoderm) 5 % patch APPLY 2 PATCHES TOPICALLY TO SKIN, LEAVE ON FOR 12 HOURS AND OFF FOR 12 HOURS DIRECTED 60 patch 02/11/20 25 Active cetirizine (ZyrTEC) 10 MG tablet Take 1 tablet (10 mg) by mouth Once per day. 30 tablet 03/23/20 25 2025 Active fluticasone (Flonase) 50 MCG/ACT nasal spray Administer 2 sprays into each nostril Once per day. 16 g 03/23/20 25 Active glucagon (Baqsimi Two Pack) 3 MG/DOSE nasal powderIndications :Type 2 diabetes mellitus without complication, with long-term current use of insulin ([facility]) USE 1 SPRAY (3MG) IN ONE NOSTRIL FOR A PATIENT WITH SEVERE HYPOGLYCEMIA WHO IS NOT RESPONSIVE AND UNABLE SELF-TREAT WITH GLUCOSE. AFTERWARDS TURN ON SIDE. MAY REPEAT IN 15MINUTES IF PATIENT DOES NOT RESPOND. 2 each 04/20/20 25 Active Dulaglutide (Trulicity) 1.5 MG/0.5ML solution auto-injector Inject 1.5 mg under the skin 1 (one) time per week. 2 mL 3 04/19/20 25 Active acetaminophen (Tylenol 8 Hour) 650 MG ER tablet TAKE 1 TABLET BY MOUTH EVERY 8 HOURS NEEDED FOR MILD PAIN. DO NOT BREAK, CRUSH, DISSOLVE OR CHEW 40 tablet 04/26/20 25 Active naproxen (Naprosyn) 500 MG tablet TAKE 1 TABLET BY MOUTH TWICE DAILY IN THE MORNING AND AT BEDTIME NEEDED FOR MILD PAIN 30 tablet 04/28/20 25 Active Continuous Glucose Sensor (FreeStyle Genevieve 2 Sensor) [facility] USE DIRECTED, CHANGE EVERY 14 DAYS 2 each 05/26/20 Active polyethylene glycol, PEG, 3350 (MiraLax) 17 GM/SCOOP powderIndications :Constipation, unspecified constipation type 17 grams in 8-12 oz fluid like water at bedtime prn constipation 527 g 2 06/17/20 Active glycerin (Adult) 2 g suppositoryIndica tions:Constipatio n, unspecified constipation type Insert 1 suppository (2 g) into the rectum if needed each day for constipation. 30 suppository 2 06/17/20 25 2024 Active senna (Senokot) 8.6 MG tabletIndications :Constipation, unspecified constipation type Take 1 tablet (8.6 mg) by mouth at bedtime. 60 tablet 2 06/17/20 25 2025 Active oxyCODONE-acetami nophen (Percocet) 5-325 MG tabletIndications :Chronic bilateral low back pain, unspecified whether sciatica present Take 1 tablet by mouth every 6 (six) hours if needed for severe pain for up to 28 days. 112 tablet 06/17/20 25 2024 Active Problems Problem Noted Date Diagnosed Date Long-term current use of opiate analgesic 2024 Tobacco dependence 12/30/2023 Degenerative disc disease, lumbar 11/28/2022 Thickened endometrium 11/28/2022 Assessment & Plan (11/28/2022 12:35 PM EST): Seen on L-spine MRI -advised schedule pelvic US -keep eval w/ [facility] [employer] next week as scheduled Healthcare maintenance 11/28/2022 Assessment & Plan (11/28/2022 12:47 PM EST): -s/p flu vaccine JUN 2020->will have repeat scheduled -s/p COVID vaccine JAN 2021+booster OCT 2021 -s/p Tdap April 2015 -s/p pneumovax Aug 2016 -s/p Hep B vaccine -shingrix prior to next visit -mammo BIRADS 28 Jun 2019 ->re-referred for repeat -pap wnl/HPV neg April 2018 -appt to discuss screening colonoscopy this month -STI/HIV screen negative Oct 2019 Hyperlipidemia 09/04/2016 Type 2 diabetes mellitus 09/04/2016 Assessment & Plan (11/28/2022 12:34 PM EST): A1c at goal -cont lantus 20 units daily -cont metformin BID -cont glipizide BID w/ meals -encouraged dietary changes -cont regular BS monitoring -cont lipitor and lisinopril daily -s/p optho eval Sep 2020 at [facility]->advised reschedule eval -foot exam next visit Chronic bilateral low back pain 08/19/2015 Assessment & Plan (11/28/2022 12:37 PM EST): With persistent severe pain -L-spine MRI w/ [id number] multilevel degenerative spondyloarthropathy (similar to 2020) DEC 2021 -L-spine x-rays w/ mild DDD APR 2018 -trial lidocaine patches and diclofenac gel -encouraged diclofenac and tizanidine as needed -cont gabapentin 800mg BID -cont percocet as needed for severe pain, there is narcotic agreement in chart -advised schedule eval w/ PM -advised rtc or go to ED if any weakness or loss of sensation Essential hypertension 08/19/2015 BMI 40.0-44.9, adult 08/19/2015 Obstructive sleep apnea 08/19/2015 Assessment & Plan (11/28/2022 12:36 PM EST): s/p CPAP titration Dec 2014 -cont CPAP nightly Major depression, recurrent, chronic 08/19/2015 Assessment & Plan (11/28/2022 12:36 PM EST): With worsening sx ISO pain -she denies any current SI/HI and plans to harm herself -she has the number for crisis and contracts for safety -cont current med regimen as per former psychiatrist -f/u with therapist as scheduled Vitamin D deficiency 08/19/2015 Encounters Date Type Department Care Team Description 07/19/2025 Telephone [facility] MEDICINE [address] [place] [address] Farnaz Miguel RN Error (VOID this visit) 07/16/2025 Telephone [facility] MEDICINE [address] [place] [address] Nahomy Patino, Needs MANAGER PRINT Tele appt 07/09/2025 Outside Procedure [facility] OPTOMETRY [address] [place] [address] Antwan Salmonn, OD Presbyopia (Primary Dx) 06/24/2025 9:45 AM EDT Office Visit [facility] OPTOMETRY [address] [place] [address] Antwan Salmonn, OD Hyperopia of both eyes (Primary Dx) 06/17/2025 1:40 PM EDT Office Visit [facility] WALK-IN CENTER [address] [place] [phone] Carmen Gerard MD Constipation, unspecified constipation type (Primary Dx) 06/17/2025 1:00 PM EDT Clinical Support [address] [address] Farnaz Miguel RN Long-term current use of opiate analgesic (Primary Dx) 06/17/[address] [address] Farnaz Miguel RN Chronic bilateral low back pain, unspecified whether sciatica present; Constipation, unspecified constipation type 06/17/2025 Travel 06/09/2025 Telephone [facility] CHC MED & PEDS [address] [place], [place] [phone] Nahomy Patino DO Prior Authorization 06/03/[address] [address] Farnaz Miguel RN NCNS MANAGER PRINT RV today 05/31/[address] [address] Nahomy Patino DO CGM sensors 05/28/2025 3:30 PM EDT Office Visit [facility] OPTOMETRY [address] [place] [address] [phone] Antwan Salmonn, OD 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); Meibomian gland disease of both eyes, unspecified eyelid; Mixed type age-related cataract, both eyes; Dominant drusen, bilateral; Presbyopia 05/28/2025 Travel 05/25/2025 Refill [facility] MEDICINE [address] [place] [phone] Nahomy Patino DO 05/24/2025 Telephone [facility] MEDICINE [address] [place] [phone] Farnaz Miguel RN Abnormal UTOX; Pt scheduled BS LE[employer] CONSULTANT 08/18/25 05/20/2025 10:30 AM EDT Clinical Support [facility] MEDICINE [address] [place] [phone] Farnaz Miguel RN Long-term current use of opiate analgesic (Primary Dx) 05/20/2025 Refill [facility] MEDICINE [address] [place] [phone] Farnaz Miguel RN Chronic bilateral low back pain with left-sided sciatica 05/20/2025 Travel 04/27/2025 Refill [facility] WALK-IN CENTER [address] [place] [phone] Nahomy Patino DO 04/26/2025 Orders Only [facility] MEDICINE [address] [place] [phone] Nahomy Patino DO Seizure disorder (CMS/HCC) (Primary Dx) 04/25/2025 Refill [facility] WALK-IN CENTER [address] [place] [phone] Nahomy Patino DO 04/21/2025 Telephone [facility] [address] [place] [phone] Nahomy Patino DO from Last 3 Months Immunizations Immunization Administration Dates Next Due Hep B, adult 01/01/2020,12/24/2016,01/21/2009 Influenza injectable quadriv alent IIV4 with preservative 07/16/2019,08/22/2018,09/04/2016,08/19 Influenza injectable quadriv alent preservative free 10/08/2023,11/28/2022,07/22/2020,06/25 Influenza, IIV3, injectable 07/07/2014 Influenza, seasonal, injecta ble, preservative free 09/30/2024 Moderna Covid-19 Vaccine 12+ 11/23/2021,02/23/20 21,01/25/2021 Moderna Covid-19 Vaccine 6+ Bivalent 11/28/2022 Pfizer Covid-19 Vaccine 12+ 09/30/2024, Pneumococcal Conjugate PCV 20 04/24/2024 Pneumococcal Polysaccharide PPSV23 09/04/2016 Tdap 04/19/2025,05/03/2015 Zoster, Recombinant 04/23/2023 Social History Tobacco Use Types Packs/Day Years Used Date Smoking Tobacco: Every Day Cigarettes Passive Smoke Exposure: Current Smokeless Tobacco: Former Tobacco Cessation:Ready to Q uit: Not Asked; Counseling Given: Not Answered Alcohol Use Standard Drinks/Week Comments Never 0 [...] Orientation Straight 08/27/2022 10 :14 AM EDT Last Filed Vital Signs Vital Sign Reading Time Taken Comments Blood Pressure 138/88 06/17/2025 1:20 PM EDT Pulse 72 06/17/2025 1:20 PM EDT Temperature 36.4 C (97.6 F) 06/17/2025 1:20 PM EDT Respiratory Rate 18 06/17/2025 1:20 PM EDT Oxygen Saturation 98% 06/17/2025 1:20 PM EDT Inhaled Oxygen Concentration - - Weight 105 kg (231 lb 9.6 oz) 06/17/2025 1:20 PM EDT Height 154.9 cm (5' 1 ) 04/19/2025 11:44 AM EDT Body Mass Index 43.76 04/19/2025 11:44 AM EDT Plan of Treatment Upcoming Encounters Date Type Department Care Team (Late st Contact Info) Description 08/03/2025 9:30 AM EDT Telemedicine [facility] MEDICINE [address] [place] [phone] Farnaz Miguel, RN Health Maintenance Due Date Last Done Comments CT Colonography 1965 Colonoscopy 1965 Colorectal Cancer Screening 1965 FIT DNA/Cologuard 1965 FIT 1965 FOBT 1965 Sigmoidoscopy 1965 Diabetes: Foot Exam 1973 Alcohol/Substance Use Screening 1975 Pap Smear 01/31/1984 RSV Patients and Patients Aged 60 years or older (1 - Risk 60-74 years 1-dose series) 2023 Cervical Cancer Screening 08/22/2023 HPV/Cotest 08/22/2023 08/22/2018 Influenza Vaccine (#1) 2025 , 10/08/2023, 11/28/2022, Additional history exists Diabetes: Urine Protein Screening 07/15/2025 07/15/2024, 06/21/2021, 11/17/2019 Lipid Panel 07/15/2025 07/15/2024, 06/21/2021 Diabetes: Hemoglobin A1C 07/20/2025 025, 09/30/2024, 07/15/2024, Additional history exists Depression Monitoring 10/19/2025 04/19/2025, 025 Disability Screening 04/19/2026 04/19/2025 SDOH Screening 04/19/2026 04/19/2025 Mammogram 06/10/2026 06/10/2024, 12/27, 07/17/2019 Tobacco Screening 06/17/2026 06/17/2025 Eye Exam 05/28/2027 05/28/2025, 0810/2024, 05/28/2025, Additional history exists DTaP/Tdap/Td Vaccines (3 - Td or Tdap) 04/19/2035 04/19/2025, 05/03/2015 Hepatitis B Vaccines Completed 01/01/2020, 12/24/2016, 01/21/2009 Pneumococcal Vaccine: 50+ Years Completed 04/24/2024, 09/04/2016 Zoster Vaccines Completed 06/15/2024, 04/23/2023 HIV Screening Completed 07/15/2024, 05/29, 11/17/2019 Hepatitis C Screening Completed 07/15/2024 , 06/21/2021, 11/17/2019 COVID-19 Vaccine Completed 09/30/2024, , 11/28/2022, Additional history exists HIB Vaccines Aged Out No longer eligi ble based on patient's age to complete this topic HPV Vaccines Aged Out No longer eligi ble based on patient's age to complete this topic Hepatitis A Vaccines Aged Out No long er eligible based on patient's age to complete this topic IPV Vaccines Aged Out No longer eligi ble based on patient's age to complete this topic Meningococcal B Vaccine Aged Out No l onger eligible based on patient's age to complete this topic Meningococcal Vaccine Aged Out No pierre mady eligible based on patient's age to complete this topic RSV under 20 months Aged Out No longe r eligible based on patient's age to complete this topic Rotavirus Vaccines Aged Out No longer eligible based on patient's age to complete this topic Procedures Procedure Name Priority Date/Time Associated Diagnosis Comments POCT CHARLY-14 URINE DRUG SCREEN Routine 06/17/2025 1:14 PM EDT Long-term current use of opiate analgesic FUNDUS PHOTOS - OU - BOTH EYES Routine 05/28/2025 3:30 PM EDT Dominant drusen, bilateral POCT CHARLY-14 URINE DRUG SCREEN Routine 05/20/2025 11:25 AM EDT Long-term current use of opiate analgesic DRUG MONITOR, COCAINE METAB, QN, URINE Routine 05/20/2025 10:30 AM EDT Long-term current use of opiate analgesic XR KNEE 4+ VIEWS LEFT Routine 04/21/2025 8:08 AM EDT Chronic pain of left knee POCT GLYCATED HEMOGLOBIN, TOTAL Routine 04/19/2025 11:47 AM EDT Type 2 diabetes mellitus without complication, with long-term current use of insulin (CMS/HCC) HEPATITIS C AB W/REFL TO HCV RNA, QN, PCR Routine 07/15/2024 8:29 AM EDT Type 2 diabetes mellitus without complication, with long-term current use of insulin (CMS/HCC) HIV 1/2 ANTIGEN/ANTIBODY, FOURTH GENERATION W/RFL Routine 07/15/2024 8:29 AM EDT Type 2 diabetes mellitus without complication, with long-term current use of insulin (CMS/HCC) Essential hypertension Other hyperlipidemia Major depression, recurrent, chronic (CMS/HCC) Obstructive sleep apnea Chronic bilateral low back pain, unspecified whether sciatica present Thickened endometrium Tobacco dependence Healthcare maintenance Encounter for screening mammogram for malignant neoplasm of breast Encounter for immunization LIPID PANEL, STANDARD Routine 07/15/2024 8:29 AM EDT Type 2 diabetes mellitus without complication, with long-term current use of insulin (CMS/HCC) ALBUMIN, RANDOM URINE W/CREATININE Routine 07/15/2024 8:25 AM EDT Type 2 diabetes mellitus without complication, with long-term current use of insulin (CMS/HCC) BI MAMMOGRAM SCREENING TOMOSYNTHESIS BILATERAL Routine 06/10/2024 3:35 PM EDT ZZZ HISTORICAL HPV E6/E7 RFLX MATTHEW 16 18/45 Routine 08/22/2018 11:15 AM EDT from Last 3 Months or Most Recently Relevant to Health Maintenance Results * POCT CHARLY-14 Urine Drug Screen (06/17/2025 1:14 PM EDT) Only the most recent of2 resultswithin the time period is included. THC Negative Negative Cocaine Screen, Urine Negative Negative Opiate Screen, Urine Negative Negative Methamphetamine Screen Urine Negative Negative Amphetamine Screen, Urine Negative Negative Benzodiazepines Screen, Urine Negative Negative Barbiturate Screen, Urine Negative Negative Methadone Screen, Urine Negative Negative Buprenophine Screen, Urine Negative Negative TCA, Urine Negative Negative MDMA Urine Negative Negative ng/mL Oxycodone Screen, Urine Negative Negative Phencyclidine (PCP), Urine Negative Negative Propoxyphene, Urine Negative Negative Fentanyl, Urine Negative Negative Urine Urine specimen obtained by clean catch procedure / Unknown 06/17/2025 1:14 PM EDT Narrative Farnaz Miguel, RN - 06/17/2025 1:14 PM EDT UTOX cup Lot#[id number] Exp. 08/03/26 Internal Pass Control Nahomy Patino DO POINT OF CARE TEST ENTER/SAUMYA T ORDERABLES Final Result * Fundus Photos - OU - Both Eyes (05/28/2025 3:30 PM EDT) Narrative Sandhya Salmon, OD - 06/16/2025 4:18 PM EDT Images from the original result were not included. Right Eye Progression has been stable. Disc findings include normal observations (No NVD). Macula findings include normal observations (No CSME). Vessel findings include normal observations. Periphery findings include (Scattered midperipheral drusen, no NVE). Left Eye Progression has been stable. Disc findings include normal observations (No NVD). Macula findings include normal observations (No CSME). Vessel findings include normal observations. Periphery findings include (Scattered midperipheral drusen, no NVE). Notes Assessment and Plan: Dominant drusen in both eyes. Stable to previous exam findings. Will monitor at her next exam. us Sandhya Salmon OD OPHTH PHOTOGRAPHY Edited Resu lt - Final * Drug Monitoring, Cocaine Metabolite, Quantitative, Urine (05/20/2025 10:30 AM EDT) Benzoylecgonine [address] [facility] Comment:[id number] ng/mL Cocaine Comments SEE NOTE [facility] Comment:NOTES AND COMMENTSTh is drug testing is for medical treatment only. Analysiswas performed as non-forensic testing and these resultsshould be used only by healthcare providers torender diagnosis or treatment, or to monitor progress ofmedical conditions.Cocaine Notes:Benzoylecgonine detected is consistent with the use of thedrug Cocaine.LDT Notes:Confirmation tests were developed and their analyticalperformance characteristics have been determined by [employer]. It has not been cleared orapproved by the FDA. This assay has been validated pursuantto the CLIA regulations and is used for clinical purposes.Healthcare Providers needing Interpretation assistance,please contact us at [phone] ( ) M-F,8am to 10pm ESTPERFORMING SITE:[facility] Spine [facility], [address] [place] [phone] Tufter: LUCA BALDERAS MD, CLIA:[id number] Urine (Urine, Random) 05/20/2025 10:30 AM EDT 05/20/2025 4:16 PM EDT us Nahomy Patino DO LAB URINE ORDERABLES Final R esult [facility] [address] [place] [address] [phone] * XR Knee 4+ Views Left (04/21/2025 8:08 AM EDT) Anatomical Region Laterality Modality Lower Extremities, Knee Left Radiogra phic Imaging 04/21/2025 8:08 AM EDT Narrative 04/21/2025 10:26 AM EDT [address] [address] XRay Report Signed Patient: Michelle Driscoll MR#: [id number] : 1965 Acct:[id number] Age/Sex: 60 / F ADM Date: 04/21/25 Loc: [facility] Attending Dr: Nahomy Patino DO Ordering Physician: Nahomy Patino DO Date of Service: 04/21/25 Procedure(s): XR knee LT 4V Accession Number(s): [id number] cc: Nahomy Patino DO EXAMINATION: XR KNEE, LEFT CLINICAL INFORMATION: increased knee pain and swelling COMPARISON: None available. TECHNIQUE: Four views of the left knee. FINDINGS: There is mild to moderate narrowing of the medial joint space and small marginal osteophytes. There is a joint effusion. No other abnormality. XR/XR knee LT 4V IMPRESSION: Mild to moderate osteoarthritis. Joint effusion. Electronically signed by: Brandan Colin MD 04/21/2025 10:24 AM EDT Dictated By: Brandan Colin MD Signed By: <Electronically signed by Brandan Colin MD in OV> 04/21/25 1024 DD/ 0808 TD/TT: 04/21/25 0810 Cross Tie Tram Loader: Procedure Note Donotuseinterpreter, Image - 04/21/[address] [address] XRay Report Signed Patient: Michelle DriscollMR#: [id number] : 1965Acct:[id number] Age/Sex: 60 / FADM Date: 04/21/25 Loc: [facility] Attending Dr: Nahomy Patino DO Ordering Physician: Nahomy Patino DO Date of Service: 04/21/25 Procedure(s): XR knee LT 4V Accession Number(s): [id number] cc: Nahomy Patino DO EXAMINATION: XR KNEE, LEFT CLINICAL INFORMATION: increased knee pain and swelling COMPARISON: None available. TECHNIQUE: Four views of the left knee. FINDINGS: There is mild to moderate narrowing of the medial joint space and small marginal osteophytes. There is a joint effusion. No other abnormality. XR/XR knee LT 4V IMPRESSION: Mild to moderate osteoarthritis. Joint effusion. Electronically signed by: Brandan Colin MD 04/21/2025 10:24 AM EDT RP Dictated By: Brandan Colin MD Signed By: <Electronically signed by Brandan Colin MD in OV> 04/21/25 1024 DD/ 0808 TD/TT: 04/21/25 0810 Cross Tie Tram Loader: Nahomy Patino DO IMG XR PROCEDURES Final Resu lt * (ABNORMAL) POCT HGB A1C (04/19/2025 11:47 AM EDT) Hemoglobin A1C 7.3(A) 4.0 - 6.0 % QC Media Lot # [id number] Lot# Expiration Date 434 Blood 04/19/2025 11:4 7 AM EDT Nahomy Patino DO POINT OF CARE TEST ENTER/SAUMYA T ORDERABLES Final Result * Hepatitis C Antibody with Reflex to HCV, RNA, Quantitative, Real-Time PCR (07/15/2024 8:29 AM EDT) Hepatitis C Antibody Nonreactive Nonreactive [facility] Comment:Antibodies to HCV no t detected; does not exclude early acuteHCV infection. Blood Venous blood specimen / Unknown 07/15/2024 8:29 AM EDT 07/15/2024 10:46 AM EDT Nahomy Patino DO LAB BLOOD ORDERABLES Final R esult [facility] [address] [place] [phone] * HIV-1/2 Antigen and Antibodies, Fourth Generation, with Reflexes (07/15/2024 8:29 AM EDT) HIV AB/AG Nonreactive Nonreactive [facility] Comment:HIV-1 p24 Ag and/or HIV-1/HIV-2 Ab not detected.A test result that is nonreactive does not exclude thepossibility of exposure to or infection with HIV-1 and/orHIV-2. Nonreactive results in this assay for individualswith prior exposure to HIV-1 and/or HIV-2 may be due toantigen and antibody levels that are below the limit ofdetection of this assay.The [employer] HIV Ag/Ab Combo assay result andsupplemental assay results should be interpreted inconjunction with the patient's clinical presentation,history and other laboratory results. If the results areinconsistent with clinical evidence, additional testing issuggested to confirm the result. Blood Venous blood specimen / Unknown 07/15/2024 8:29 AM EDT 07/15/2024 10:46 AM EDT us Nahomy Patino DO LAB BLOOD ORDERABLES Final R esult [facility] [address] [place] [phone] * (ABNORMAL) Lipid Panel, Standard (07/15/2024 8:29 AM EDT) Triglycerides 70 <150 mg/dL [facility] Comment:Desirable Triglyceri de: less than 150 mg/dLBorderline High Triglyceride 150-199 mg/dLHigh Triglyceride: 200-499 mg/dLVery High Triglyceride: greater than or equal to 5OO mg/dL Cholesterol 195 <200 mg/dL [facility] Comment:Desirable Cholestero l: less than 200 mg/dLBorderline High Cholesterol: 200-239 mg/dLHigh Cholesterol: greater than 239 mg/dL LDL Cholesterol Calculated 137(H) <100 mg/dL [facility] Comment:Desirable LDL: less than 100 mg/dLNear Optimal/Above Optimal LDL: 110- 129 mg/dLBorderline High LDL: 130-159 mg/dLHigh LDL: 160-189 mg/dLVery High LDL: greater than or equal to 190 mg/dL HDL Cholesterol 44 >40 mg/dL [facility] Comment:Desirable HDL: great er than 40 mg/dL Note: This HDL assay may give artificially low results in patients with liver disease. Blood Venous blood specimen / Unknown 07/15/2024 8:29 AM EDT 07/15/2024 10:46 AM EDT us Nahomy Patino DO LAB BLOOD ORDERABLES Final R esult Performing Organization Address City/[facility] Co de Phone Number [facility] [address] [place] [address] [phone] * Albumin, Random Urine W/Creatinine (07/15/2024 8:25 AM EDT) Creatinine, Urine 91.96 mg/dL [facility] Microalbumin Urine 11.0 mg/L [facility] Microalbum Creatinine Ratio Ur 11.9 <30 ug/mg cr [facility] Comment:Albumin/Creatinine R atio Reference Ranges: Normal: < 30 ug/mg creatinine Microalbuminuria: 30 - 300 ug/mg creatinineClinical Albuminuria: > 300 ug/mg creatinine Urine (Urine, Random) 07/15/2024 8:25 AM EDT 07/15/2024 10:51 AM EDT us Nahomy Patino DO LAB URINE ORDERABLES Final R esult Performing Organization Address City/[facility]/ZIP Co de Phone Number [facility] [address] [place] [phone] * BI Mammogram Screening Tomosynthesis Bilateral (06/10/2024 3:35 PM EDT) Anatomical Region Laterality Modality Breast Bilateral Mammography 06/10/2024 3:35 PM EDT Narrative 07/08/2024 12:56 PM EDT [facility] [address] [place] [address] Mammography Report Signed with Addenda Patient: Michelle Driscoll MR#: [id number] : 1965 Acct:[id number] Age/Sex: 59 / F ADM Date: 06/10/24 Loc: HO.MAMMO Attending Dr: Nahomy Patino DO Ordering Physician: Nahomy Patino DO Results: 1N egative Date of Service: 06/10/24 Follow Up: 1 Year From Orig inal Mammogram Procedure(s): MM tomosynthesis screening BI Accession Number(s): [id number] cc: Nahomy Patino DO ADDENDUM ADDENDUM #1 ADDENDUM: These images and the report have been reviewed. The study remains a BI-RADS 1. OVERALL ASSESSMENT: BI-RADS 1 - Negative RECOMMENDATION: 1 year F/U Electronically signed by: Luna Archuleta MD 07/13/2024 10:39 AM EDT Addendum Dictated By: Luna Archuleta MD Addendum Signed By: <Electronically signed by Luna Archuleta MD in OV> 07/13/24 1039 Addendum Cosigned By: DD/ TD/TT: 06/10/24 EXAMINATION: MM SCREENING DIGITAL BREAST TOMOSYNTHESIS, BILATERAL CLINICAL INFORMATION: Screening. Asymptomatic. COMPARISON: Mammography: Study is compared to prior exams dating back to 2005. TECHNIQUE: Digital breast tomosynthesis is performed in both the craniocaudal and mediolateral oblique views along with computer-aided detection (CAD). Synthesized 2D images are generated from the tomosynthesis. FINDINGS: There are scattered areas of fibroglandular density (ACR BI-RADS breast composition Category b). There are no significant masses, abnormal calcifications, or other abnormalities. MM/MM tomosynthesis screening BI IMPRESSION: No mammographic evidence of malignancy. ASSESSMENT: BI-RADS BI-RADS 1 - Negative RECOMMENDATION: Routine annual mammography screening. 1 year F/U This examination should not preclude the clinical evaluation of a suspicious palpable abnormality. This patient's information was entered into a reminder system with a target due date for their next mammogram. Electronically signed by: Holly Sanhcez MD 07/08/2024 12:53 PM EDT RP Dictated By: Holly Sanchez MD Signed By: <Electronically signed by Holly Sanchez MD in OV> 07/08/24 1253 DD/ 34 TD/TT: 06/10/24 155 Cross Tie Tram Loader: Procedure Note Donotuseinterpreter, Image - 07/13/20[facility] [address] [place] [address] Mammography Report Signed with Addenda Patient: Corinne Driscoll#: [id number] : 1965Acct:[id number] Age/Sex: 59 / FADM Date: 06/10/24 Loc: [facility]PHANIE Attending Dr: Nahomy Patino DO Ordering Physician: Nahomy Patinoults: 1N egative Date of Service: 06/10/24Follow Up: 1 Year From Orig inal Mammogram Procedure(s): MM tomosynthesis screening BI Accession Number(s): [id number] cc: Nahomy Patino DO ADDENDUM ADDENDUM #1 ADDENDUM: These images and the report have been reviewed. The study remains a BI-RADS 1. OVERALL ASSESSMENT: BI-RADS 1 - Negative RECOMMENDATION: 1 year F/U Electronically signed by: Luna Archuleta MD 07/13/2024 10:39 AM EDT RP Addendum Dictated By: Luna Archuleta MD Addendum Signed By: <Electronically signed by Luna Archuleta MD in OV> 07/13/24 1039 Addendum Cosigned By: DD/ TD/TT: 06/10/24 EXAMINATION: MM SCREENING DIGITAL BREAST TOMOSYNTHESIS, BILATERAL CLINICAL INFORMATION: Screening. Asymptomatic. COMPARISON: Mammography: Study is compared to prior exams dating back to 2005. TECHNIQUE: Digital breast tomosynthesis is performed in both the craniocaudal and mediolateral oblique views along with computer-aided detection (CAD). Synthesized 2D images are generated from the tomosynthesis. FINDINGS: There are scattered areas of fibroglandular density (ACR BI-RADS breast composition Category b). There are no significant masses, abnormal calcifications, or other abnormalities. MM/MM tomosynthesis screening BI IMPRESSION: No mammographic evidence of malignancy. ASSESSMENT: BI-RADS BI-RADS 1 - Negative RECOMMENDATION: Routine annual mammography screening. 1 year F/U This examination should not preclude the clinical evaluation of a suspicious palpable abnormality. This patient's information was entered into a reminder system with a target due date for their next mammogram. Electronically signed by: Holly Sanchez MD 07/08/2024 12:53 PM EDT RP Dictated By: Holly Sanchez MD Signed By: <Electronically signed by Holly Sanchez MD in OV> 07/08/24 1253 DD/ 1535 TD/TT: 06/10/24 1550 Cross Tie Tram Loader: Nahomy Patino DO IMG BI PROCEDURES Edited Res ult - Final * HPV E6/E7 RFLX MATTHEW 16 18/45 (08/22/2018 11:15 AM EDT) ADDITIONAL TESTING Not indicated () [facility] Comment: Test Performed by [employer], [employer] [facility], [address] [place] [address] Vazquez Whitney M.D., Ph.D., Director of Laboratories , [facility] [id number] HPV 16 RNA Test not performed [facility] HPV 18/45 RNA Test not performed [facility] HPV mRNA E6/E7 Not Detected NOT DETECTED [facility] Comment: This test was performed using the APTIMA(R) HPV Assay ([employer] This assay detects E6/E7 viral messenger RNA (mRNA) from 14 high-risk HPV types (16,18,31,33,35,39,45,51, 52,56,58,59,66,68). For additional information please refer to: http://education.[employer]/faq/HBA696e6 (This link is being provided for informational/ educational purposes only.) The analytical performance characteristics of this assay have been determined by [employer] [place], [place]. The modifications have not been cleared or approved by the FDA. This assay has been validated pursuant to the CLIA regulations and is used for clinical purposes. Please note: Effective 07/09/2016, HPV testing will be performed using [employer] APTIMA test which targets mRNA. Detecting mRNA instead of DNA, as in older methods, offers significant improvements in specificity. 08/22/2018 11:1 5 AM EDT us Nahomy Patino DO HISTORICAL/NON ORDERABLE LAB S Final Result Performing Organization Address City/State/[facility] Co de Phone Number [facility] [address] from Last 3 Months or Most Recently Relevant to Health Maintenance Insurance [facility] C3 Care Teams Mobile Plant Operators Relationship Specialty Start Date End Date Nahomy Patino DO [address] [place] [phone] PCP - General Family Medicine 10/28/18
--- OUTSIDE RECORDS SUMMARY | 2025-07-22 18:04 | XMS_ITS | Encounter Summary ---
Author Organization [employer] Address [address] [facility] 7t [place] [address] Care Team Providers Care Table Runner Name Role Phone Nahomy Patino DO Primary Care Provider + [phone] Reason for Visit * Reason Comments Med Refill Encounter Details Date Type Department Care Team (Late st Contact Info) Description 08/23/2023 Refill [facility] [address] [place], [place] [phone] Nahomy Patino DO [address] [place], [place] [phone] Other chronic pain Social History Tobacco Use Types Packs/Day Years Used Date Smoking Tobacco: Every Day Cigarettes Passive Smoke Exposure: Current Alcohol Use Standard Drinks/Week Comments Never 0 (1 standard drink = 0.6 oz pur e alcohol) Depression Answer Date Recorded Patient Health Questionnaire-9 Score 12 11/28/2022 Housing Stability Answer Date Recorded What is your housing situation today? Not on iza e 08/23/[address] you li ve. Do you have problems with any of the following? None of the above 08/23/2023 Food Insecurity Answer Date Recorded Within the [...] Info) Description 08/03/2025 9:30 AM EDT Telemedicine [facility] [address] [place], [place] [phone] Farnaz Miguel RN documented as of this encounter Visit Diagnoses Diagnosis Other chronic pain documented in this encounter Additional Health Concerns Assessment Noted Time PHQ-9 Depression Total Score: 12 023 12:05 PM EST documented as of this encounter Care Teams Table Runner Relationship Specialty Start Date End Date Nahomy Patino DO [address] [place] [address] PCP - General Family Medicine 10/28/18 documented as of this encounter
--- OUTSIDE RECORDS SUMMARY | 2025-07-22 18:04 | XMS_ITS | Encounter Summary ---
Author Organization [employer] Address [address] [facility] 7t [place] [address] Care Team Providers Care Organisation And Methods Analyst Name Role Phone Nahomy Patino Primary Care Provider + [phone] Reason for Visit * Reason Comments Med Refill Encounter Details Date Type Department Care Team (Late st Contact Info) Description 01/29/2024 Refill [facility] [address] [phone] Name, MD Dustin [address] [place], [place] [phone] Social History Tobacco Use Types Packs/Day Years [...] Info) Description 08/03/2025 9:30 AM EDT Telemedicine [facility] [address] [place] [address] Farnaz Miguel RN documented as of this encounter Visit Diagnoses Not on filedocumented in this encounter Additional Health Concerns Assessment Noted Time PHQ-9 Depression Total Score: 0 10/08/20 23 9:07 AM EST documented as of this encounter Care Teams Organisation And Methods Analyst Relationship Specialty Start Date End Date Nahomy Patino DO [address] [place] [address] PCP - General Family Medicine 10/28/18 documented as of this encounter
--- OUTSIDE RECORDS SUMMARY | 2025-07-22 18:04 | XMS_ITS | Encounter Summary ---
Author Organization [employer] Address [address] [facility] 7t [place] [address] Care Team Providers Care Survey Party Chief Name Role Phone Nahomy Patino DO Primary Care Provider [phone] Encounter Details Date Type Department Care Team (Latest Contact Info) Description 09/26/2020 Abstract [facility] Dental, Provider, DDS Social History Tobacco Use Types Packs/Day Years Used Date Smoking Tobacco: Never Assessed Comments Unknown Sex and Gender Information Value Date Recorded Sex Assigned at Female 08/27/2022 10:14 AM EDT Legal Sex Female 10:14 AM EDT Gender Identity Female 08/27/2022 10:14 AM EDT Sexual Orientation Straight 08/27/2022 10 :14 AM EDT documented as of this encounter Plan of Treatment Upcoming Encounters Date Type Department Care Team (Late st Contact Info) Description 08/03/2025 9:30 AM EDT Telemedicine [facility] [address] [place] [address] Farnaz Miguel RN documented as of this encounter Visit Diagnoses Not on filedocumented in this encounter Care Teams Survey Party Chief Relationship Specialty Start Date End Date Nahomy Patino DO [address] [place] [address] PCP - General Family Medicine 10/28/18 documented as of this encounter
--- OUTSIDE RECORDS SUMMARY | 2025-07-22 18:04 | XMS_ITS | Encounter Summary ---
Author Organization [employer] Address [address] [facility] 7t [place] [address] Care Team Providers Care Workers Compensation Attorney Name Role Phone Nahomy Patino DO Primary Care Provider + [phone] Reason for Visit * Reason Comments Med Refill Encounter Details Date Type Department Care Team (Late st Contact Info) Description 11/15/2023 Refill [facility] [address] [place], [place] [phone] Nahomy Patino DO [address] [place], [place] [phone] Chronic low back pain, unspecified back pain laterality, unspecified whether sciatica present Social History Tobacco Use Types Packs/Day Years [...] Info) Description 08/03/2025 9:30 AM EDT Telemedicine [facility] [address] [place] [phone] Farnaz Miguel RN documented as of this encounter Visit Diagnoses Diagnosis Chronic low back pain, unspecified back pain laterality, unspecified whether sciatica present documented in this encounter Additional Health Concerns Assessment Noted Time PHQ-9 Depression Total Score: 0 10/08/20 23 9:07 AM EST documented as of this encounter Care Teams Workers Compensation Attorney Relationship Specialty Start Date End Date Nahomy Patino DO [address] [place] [phone] PCP - General Family Medicine 10/28/18 documented as of this encounter
--- OUTSIDE RECORDS SUMMARY | 2025-07-22 18:04 | XMS_ITS | Encounter Summary ---
Author Organization [employer] Address [address] [facility] 7t [place] [address] Care Team Providers Care Tripe Scraper Name Role Phone Nahomy Patino DO Primary Care Provider + [phone] Reason for Visit * Reason Onset Date Comments Appointment Request 08/26/2024 Encounter Details Date Type Department Care Team ([facility] st Contact Info) Description 08/26/2024 Telephone [facility] [address] [place], [place] [phone] Nahomy Patino DO [address] [place], [place] [phone] Appointment Request Social History Tobacco Use Types Packs/Day Years [...] encounter Miscellaneous Notes * Telephone Encounter - Farnaz Miguel RN - 08/26/2024 10:12 AM EDT Return TC to patient, pt cancelled [facility] appt 09/14/24, states she's traveling to [place] today and wont be back until after Thanksgiving. [facility] rescheduled for 09/28/24 @ 10:30am * Telephone Encounter - Akiko Ocampo - 08/26/2024 10:08 AM EDT Tc from pt called in to cancel 09/14/24 appt. States is on vacation and does not return after thanksgiving. documented in this encounter Plan of Treatment Upcoming Encounters Date Type Department Care Team (Late st Contact Info) Description 08/03/2025 9:30 AM EDT Telemedicine [facility] [address] [place] [address] Farnaz Miguel, RN documented as of this encounter Visit Diagnoses Not on filedocumented in this encounter Additional Health Concerns Assessment Noted Time PHQ-9 Depression Total Score: 0 10/08/20 23 9:07 AM EST documented as of this encounter Care Teams Tripe Scraper Relationship Specialty Start Date End Date Nahomy Patino DO [address] [place] [address] PCP - General Family Medicine 10/28/18 documented as of this encounter
== END 2025-07-22 14:47 | disposition home or self-care (01) ==
LOC: HO.HOS 13:32
PROVIDERS: PCP Family Medicine; Visit Provider Physician Assistant
DX: M22.2X2 Patellofemoral disorders, left knee (principal)
CPT/HCPCS: 20610; 99213

== ENCOUNTER → 2025-07-22 13:34 | Outpatient (BNV) | payer MEDICAID, SELFPAY | PROVIDERS: Visit Provider Radiology Diagnostic Radiology | DX: M17.0 Bilateral primary osteoarthritis of knee (principal) | CPT/HCPCS: 73565 ==

== ENCOUNTER 2025-08-31 04:24 | Emergency (ER) | payer MEDICAID, SELFPAY ==
--- OUTSIDE RECORDS SUMMARY | 2025-08-30 09:30 | XMS_ITS | Encounter Summary ---
Author Organization [employer] Address [address] [facility] 7[address] [place] [address] Care Team Providers Care Admissions Coordinator Name Role Phone Nahomy Patino DO Primary Care Provider + [phone] Reason for Visit * Reason Comments RESEARCH LEADER Renewal Encounter Details Date Type Department Care Team (Latest Contact Info) Description 08/30/2025 9:30 AM EST Clinical [address] [facility] [address] [place], [place] [phone] Farnaz Miguel RN Long-term current use of opiate analgesic (Primary Dx) Social History Tobacco Use Types Packs/Day Years [...] AM EDT documented as of this encounter Progress Notes * Farnaz Miguel RN - 08/30/2025 9:30 AM EST SUBJECTIVE: Michelle Driscoll is a 60 y.o. year old female who presents for RESEARCH LEADER Renewal Preferred language for medical information: [place] Michelle Driscoll does report adherence to Percocet 5 mg, take 1 tablet every 6 hours PRN, last etlcgsfv66/07/2025. Pt states she uses between 1-3 doses a day. The patient last took Percocet on: 08/29/2025 Medication is: 80% % effective at alleviating pain. OBJECTIVE: RESIDENT SERVICES COORDINATOR checked: 08/30/2025 Pill count completed for Percocet , count today is 14 , anticipated count should be 3, this is as expected. Vital Signs Pain Score: 9 Pain Loc: Back Pain Education: Yes Additional pain site: abdomen, knee's L>R Last PCP visit: 04/19/2025 BPI completed on: 08/30/2025 , pain severity score: 8, activity interference score: 8 BPI completed on: 05/20/2025 , pain severity score: 8, activity interference score: 9 Controlled substance agreement signed: Controlled Substance Agreement 08/30/2025 Controlled substance agreement: signed and up to date RESEARCH LEADER Tier: 1 Current Medications[1] Smoking status: Denies ETOH use: Denies Illicit substances: Denies Marijuana use: Yes, gummies , Marijuana card: No , Marijuana Acquired from: Dispensary Lab Results Component Value Date POCTHC Positive (A) 08/30/2025 POCCOCAINEUR Negative 08/30/2025 POCOPIATEUR Negative 08/30/2025 DOAUR Negative 08/30/2025 POCAMPHETAMI Negative 08/30/2025 POCBENZODIUR Negative 08/30/2025 POCBARBSCRN Negative 08/30/2025 POCMETHADOUR Negative 08/30/2025 POCBUPSCRN Negative 08/30/2025 POCTCAUR Negative 08/30/2025 POCMDMAUR Negative 08/30/2025 POCOXYCODONE Positive (A) 08/30/2025 POCPHENCYCUR Negative 08/30/2025 PROPOXUR Negative 08/30/2025 FENTANYLURIN Negative 08/30/2025 ASSESSMENT: Encounter Diagnosis Name Primary? Long-term current use of opiate analgesic Yes PLAN: Information on pain group given: Yes Information on acupuncture given: Yes Narcan education provided: Yes Narcan prescription: active Will update PCP with BPI scoring. Controlled substance agreement reviewed and signed. A copy was given to the patient. Michelle Driscoll will continue taking medications as prescribed and has verbalized understanding of care plan. Future Appointments Date Time Provider Department Center 09/29/2025 10:00 AM Farnaz Miguel RN [facility] Farnaz Miguel RN [1] Current Outpatient Medications: naloxone (Narcan) 4 mg/0.1 mL nasal spray, Administer 1 spray (4 mg) into affected nostril(s) if needed each day for opioid reversal., Disp: 2 each, Rfl: 2 oxyCODONE-acetaminophen (Percocet) 5-325 MG tablet, Take 1 tablet by mouth every 6 (six) hours if needed for severe pain for up to 28 days., Disp: 112 tablet, Rfl: 0 acetaminophen (Tylenol 8 Hour) 650 MG ER tablet, TAKE 1 TABLET BY MOUTH EVERY 8 HOURS NEEDED FORMILD PAIN. DO NOT BREAK, CRUSH, DISSOLVE OR CHEW, Disp: 40 tablet, Rfl: 1 Alcohol Swabs (Alcohol Prep) 70 % pads, USE DIRECTED 4-6 TIMES PER DAY, Disp: 120 each, Rfl: 0 aspirin (Aspirin Adult Low Dose) 81 MG EC tablet, Take 1 tablet (81 mg) by mouth Once per day., Disp: 90 tablet, Rfl: 3 atorvastatin (Lipitor) 40 MG tablet, Take 1 tablet (40 mg) by mouth Once per day., Disp: 90 tablet,Rfl: 0 BD Pen Needle Fiorella U/F 32G X 4 MM misc, USE DAILY WITH lantus solostar, Disp: 100 each, Rfl: 4 cetirizine (ZyrTEC) 10 MG tablet, Take 1 tablet (10 mg) by mouth Once per day., Disp: 30 tablet, Rfl: 11 cholecalciferol (Vitamin D-3) 50 MCG (2000 UT) tablet, TAKE 1 TABLET BY MOUTH EVERY DAY, Disp: 90 tablet, Rfl: 3 citalopram (CeleXA) 20 MG tablet, TAKE 1 TABLET BY MOUTH EVERY DAY, Disp: 30 tablet, Rfl: 5 Continuous Glucose Sports Team Manager (FreeStyle Genevieve 2 [place]) device, Scan sensor every 8 hours, Disp: 1 each, Rfl: 0 Continuous Glucose Sensor (FreeStyle Genevieve 2 Sensor) [facility], USE DIRECTED, CHANGE EVERY 14 DAYS, Disp: 2 each, Rfl: 11 Diclofenac Sodium 1 % gel, APPLY 2 GRAMS TO AFFECTED AREA(S) TWICE DAILY, Disp: 100 g, Rfl: 11 docusate sodium (Colace) 100 MG capsule, TAKE 1 CAPSULE BY MOUTH TWICE DAILY NEEDED, Disp: 180 capsule, Rfl: 3 Dulaglutide (Trulicity) 1.5 MG/0.5ML solution auto-injector, Inject 1.5 mg under the skin 1 (one) time per week., Disp: 2 mL, Rfl: 3 fluticasone (Flonase) 50 MCG/ACT nasal spray, Administer 2 sprays into each nostril Once per day., Disp: 16 g, Rfl: 11 FREESTYLE LITE test strip, TEST BLOOD SUGAR 4-6 TIMES PER DAY, Disp: 200 strip, Rfl: 11 gabapentin (Neurontin) 300 MG capsule, TAKE 1 CAPSULE BY MOUTH TWICE DAILY, Disp: 60 capsule, Rfl: 3 glucagon (Baqsimi Two Pack) 3 MG/DOSE nasal powder, USE 1 SPRAY (3MG) IN ONE NOSTRIL FOR A PATIENT WITH SEVERE HYPOGLYCEMIA WHO IS NOT RESPONSIVE AND UNABLE SELF-TREAT WITH GLUCOSE. AFTERWARDS TURN ON SIDE. MAY REPEAT IN 15MINUTES IF PATIENT DOES NOT RESPOND., Disp: 2 each, Rfl: 1 glycerin (Adult) 2 g suppository, Insert 1 suppository (2 g) into the rectum if needed each day forconstipation., Disp: 30 suppository, Rfl: 2 HealthyLax 17 g packet, Mix 1 packet in 8 ounces of water, juice, coffee or tea and drink once a day NEEDED FOR CONSTIPATION, Disp: 30 packet, Rfl: 11 hydroCHLOROthiazide (HYDRODiuril) 25 MG tablet, TAKE 1 TABLET BY MOUTH EVERY MORNING, Disp: 90 tablet, Rfl: 3 lidocaine (Lidoderm) 5 % patch, APPLY 2 PATCHES TOPICALLY TO SKIN, LEAVE ON FOR 12 HOURS AND OFF FOR 12 HOURS DIRECTED, Disp: 60 patch, Rfl: 3 lisinopril 40 MG tablet, TAKE 1 TABLET BY MOUTH EVERY MORNING, Disp: 90 tablet, Rfl: 3 LORazepam (Ativan) 0.5 MG tablet, Take 1 tablet (0.5 mg) by mouth 1 (one) time for 1 dose. Prior toMRI, may repeat after 30min if needed x one dose, Disp: 2 tablet, Rfl: 0 melatonin 5 MG tablet, TAKE 1 OR 2 TABLETS BY MOUTH EVERY DAY AT BEDTIME, Disp: 60 tablet, Rfl: 3 naproxen (Naprosyn) 500 MG tablet, TAKE 1 TABLET BY MOUTH TWICE DAILY NEEDED FOR MILD PAIN, Disp: 30 tablet, Rfl: 1 nicotine polacrilex (Commit) 2 MG lozenge, Dissolve 1 lozenge, as directed, every 1-2 hours as needed for cravings. Max 20 lozenges per 24 hours., Disp: 144 lozenge, Rfl: 5 OXcarbazepine (Trileptal) 150 MG tablet, TAKE 1 TABLET BY MOUTH TWICE DAILY, Disp: 60 tablet, Rfl: 3 polyethylene glycol, PEG, 3350 (MiraLax) 17 GM/SCOOP powder, take 1 packet by oral route every day mixed with 8 oz. water, juice, soda, coffee or tea as needed for Constipation, Disp: , Rfl: polyethylene glycol, PEG, 3350 (MiraLax) 17 GM/SCOOP powder, 17 grams in 8-12 oz fluid like water at bedtime prn constipation, Disp: 527 g, Rfl: 2 polyvinyl alcohol (Liquifilm Tears) 1.4 % ophthalmic solution, one drop in both eyes as needed for burning., Disp: , Rfl: senna (Senokot) 8.6 MG tablet, TAKE 2 TABLETS BY MOUTH EVERY DAY AT BEDTIME NEEDED FOR CONSTIPATION, Disp: 180 tablet, Rfl: 3 senna (Senokot) 8.6 MG tablet, Take 1 tablet (8.6 mg) by mouth at bedtime., Disp: 60 tablet, Rfl: 2 tiZANidine (Zanaflex) 2 MG tablet, TAKE 1 TABLET BY MOUTH EVERY 8 HOURS NEEDED FOR MUSCLE SPASMS, Disp: 60 tablet, Rfl: 3 TRUEplus Lancets 33G misc, TEST BLOOD SUGAR 4-6 TIMES PER DAY, Disp: 100 each, Rfl: 11 documented in this encounter Plan of Treatment Upcoming Encounters Date Type Department Care Team (Late st Contact Info) Description 09/29/2025 10:00 AM EST Clinical Support [address] [address] Farnaz Miguel RN 10/01/2025 11:00 AM EST Medication Management [address] [phone] Eva Gould PharmD [address] [place] [phone] documented as of this encounter Procedures Procedure Name Priority Date/Time Associated Diagnosis Comments POCT CHARLY-14 URINE DRUG SCREEN Routine 08/30/2025 9:49 AM EST Long-term current use of opiate analgesic documented in this encounter Results * (ABNORMAL) POCT CHARLY-14 Urine Drug Screen (08/30/2025 9:49 AM EST) THC Positive(A) Negative Cocaine Screen, Urine Negative Negative Opiate Screen, Urine Negative Negative Methamphetamine Screen Urine Negative Negative Amphetamine Screen, Urine Negative Negative Benzodiazepines Screen, Urine Negative Negative Barbiturate Screen, Urine Negative Negative Methadone Screen, Urine Negative Negative Buprenophine Screen, Urine Negative Negative TCA, Urine Negative Negative MDMA Urine Negative Negative ng/mL Oxycodone Screen, Urine Positive(A) Negative Comment:RESEARCH LEADER pt on Percocet Phencyclidine (PCP), Urine Negative Negative Propoxyphene, Urine Negative Negative Fentanyl, Urine Negative Negative Urine Urine specimen obtained by clean catch procedure / Unknown 08/30/2025 9:49 AM EST Farnaz Hill, JULIA - 08/30/2025 9:49 AM EST UTOX cup Lot#[id number] Exp. 08/03/26 Internal Pass Control Nahomy Patino DO POINT OF CARE TEST ENTER/SAUMYA T ORDERABLES Final Result documented in this encounter Visit Diagnoses Diagnosis Long-term current use of opiate analgesic- Primary Encounter for long-term (current) use of other medications documented in this encounter Additional Health Concerns Assessment Noted Time PHQ-9 Depression Total Score: 11 025 1:10 PM EDT documented as of this encounter Care Teams Admissions Coordinator Relationship Specialty Start Date End Date Nahomy Patino DO [address] [place] [phone] PCP - General Family Medicine 10/28/18 documented as of this encounter
[2025-08-31 04:36] VITALS: BP 148/86; BP 170/90; PULSE 101; RESP 20; TEMP 36.7; O2SAT 95; O2SAT 98; BMI 37.8
[2025-08-31 04:54] LABS: MANUAL DIFF FLAG NO
[2025-08-31 04:57] LABS: Hematocrit 46.2 % (37.0-47.0); Hemoglobin 15.5 g/dl (12.0-16.0); Imm Gran Abs Auto 0.09 X10*3/uL (0.00-0.03); Imm Gran Pct Auto 0.5 % (0.0-0.4); Lymphocytes Absolute Auto 2.8 X10*3/uL (1.2-4.9); Mean Corpuscular HGB Conc 33.5 g/dl (31.0-35.0); Mean Corpuscular Hemoglobin 29.6 pg (27.0-33.0); Mean Corpuscular Volume 88.2 fL (80.0-98.0); NRBC Abs Auto 0.000 X10*3/uL (0.0-0.012); NRBC Pct Auto 0.0 /100WBC (0.0-0.2); Platelet Count 284 X10*3/uL (160-400); Red Blood Count 5.24 X10*6/uL (4.20-5.50); White Blood Count 17.8 X10*3/uL (4.8-10.8)
--- OUTSIDE RECORDS SUMMARY | 2025-08-31 05:03 | XMS_ITS | Encounter Summary ---
Author Organization [email or web address] Address [address] [facility] 7t [place] [address] Care Team Providers Care Poured Pipe Maker Name Role Phone Nahomy Patino Primary Care Provider [phone] Encounter Details Date Type Department Care Team (Latest Contact Info) Description 08/30/2025 Travel Social History Tobacco Use Types Packs/Day Years [...] Description 09/29/2025 10:00 AM EST Clinical Support [address] [address] Farnaz Miguel RN 10/01/2025 11:00 AM EST Medication Management [address] [address] SigifredoiaEva, PharmD [address] [place] [address] documented as of this encounter Visit Diagnoses Not on filedocumented in this encounter Additional Health Concerns Assessment Noted Time PHQ-9 Depression Total Score: 11 025 1:10 PM EDT documented as of this encounter Care Teams Poured Pipe Maker Relationship Specialty Start Date End Date Nahomy Patino DO [address] [place] [phone] PCP - General Family Medicine 10/28/18 documented as of this encounter
--- OUTSIDE RECORDS SUMMARY | 2025-08-31 05:03 | XMS_ITS | Encounter Summary ---
Author Organization [employer] Address [address] [facility] 7t [place] [address] Care Team Providers Care Treasury Specialist Name Role Phone Nahomy Patino DO Primary Care Provider + [phone] Encounter Details Date Type Department Care Team (Latest Contact Info) Description 09/26/2020 Abstract [facility] CONVERSIONS Dental, Provider, DDS Social History [...] Description 09/29/2025 10:00 AM EST Clinical Support [address] [address] Farnaz Miguel, RN 10/01/2025 11:00 AM EST Medication Management [facility] [address] [place] [phone] Eva Gould, PharmD [address] [place] [address] documented as of this encounter Visit Diagnoses Not on filedocumented in this encounter Care Teams Treasury Specialist Relationship Specialty Start Date End Date Nahomy Patino DO [address] [place] [address] PCP - General Family Medicine 10/28/18 documented as of this encounter
--- OUTSIDE RECORDS SUMMARY | 2025-08-31 05:03 | XMS_ITS | Encounter Summary ---
Author Organization [employer] Address [address] [facility] 7t [place] [address] Care Team Providers Care Ec Teacher Name Role Phone Nahomy Patino Primary Care Provider + [phone] Reason for Visit * Reason Onset Date Comments ELECTRONIC COMMERCE SPECIALIST Agreement renewed today 08/30/2025 Encounter Details Date Type Department Care Team ([facility] st Contact Info) Description 08/30/2025 Telephone [facility] [address] [place], [place] [phone] Farnaz Miguel RN ELECTRONIC COMMERCE SPECIALIST Agreement renewed today Social History Tobacco Use Types Packs/Day Years [...] Telephone Encounter - Farnaz Miguel RN - 08/30/2025 9:51 AM EST Pt had ELECTRONIC COMMERCE SPECIALIST Renewal appointment today BPI completed on: 08/30/2025 , pain severity score: 8, activity interference score: 8 BPI completed on: 05/20/2025 , pain severity score: 8, activity interference score: 9 documented in this encounter Plan of Treatment Upcoming Encounters Date Type Department Care Team (Late st Contact Info) Description 09/29/2025 10:00 AM EST Clinical Support [facility] [address] [place] [phone] Farnaz Miguel RN 10/01/2025 11:00 AM EST Medication Management [facility] [address] [place] [phone] Eva Gould, PharmD [address] [place] [address] documented as of this encounter Visit Diagnoses Not on filedocumented in this encounter Additional Health Concerns Assessment Noted Time PHQ-9 Depression Total Score: 11 025 1:10 PM EDT documented as of this encounter Care Teams Ec Teacher Relationship Specialty Start Date End Date Nahomy Patino DO [address] [place] [phone] PCP - General Family Medicine 10/28/18 documented as of this encounter
--- OUTSIDE RECORDS SUMMARY | 2025-08-31 05:03 | XMS_ITS | Encounter Summary ---
Author Organization [employer] Address [address] [place] [address] 7t [place] [address] Care Team Providers Care Management Tech Name Role Phone Nahomy Patino DO Primary Care Provider Reason for Referral * Consultation (Routine) - Authorized Specialty Diagnoses / Procedures Referred By Nury hauser Referred To Contact Pharmacy Diagnoses Type 2 diabetes mellitus without complication, with long-term current use of insulin (HCC) Nahomy Patino DO [address] [place] [address] Phone: tel: fax: Referral ID Status Reason Start Date Expiration Date Visits Requested Visits Authorized [id number] Authorized Consult and Treat 08/30/2025 08/30/2026 6 6 Reason for Visit * Reason Onset Date Comments Care Coordination 08/30/2025 Encounter Details Date Type Department Care Team ([facility] st Contact Info) Description 08/30/2025 Telephone [facility] [address] [place], [place] [phone] Nahomy Patino DO [address] [place], [place] [phone] Care Coordination Social History Tobacco Use Types Packs/Day Years [...] as of this encounter Miscellaneous Notes * Addendum Note - Nolberto Baker RN - 08/30/2025 10:05 AM ESTAddended by: NOLBERTO BAKER on: 08/30/2025 10:05 AM Modules accepted: Orders * Telephone Encounter - Nolberto Baker RN - 08/30/2025 9:57 AM EST Patient arrived to the Red team after a CREDIT ADJUSTER appointment. Patient reported she has not checked her blood sugar in months and is having s/s of hyperglycemia and hypoglycemia. [facility] This RN placed an referral for CDTM appointment. Patient verbalized understanding. PT to F/U PRN. documented in this encounter Plan of Treatment Upcoming Encounters Date Type Department Care Team (Late st Contact Info) Description 09/29/2025 10:00 AM EST Clinical Support [facility] [address] [place] [phone] Farnaz Miguel RN 10/01/2025 11:00 AM EST Medication Management [facility] [address] [place] [phone] Eva Gould PharmD [address] [place] [phone] Scheduled Referrals Name Type Priority Associated Diagnoses Orde r Schedule Referral to Pharmacy CDTM Outpatient Referral Routine Type 2 diabetes mellitus without complication, with long-term current use of insulin (HCC) Ordered: 08/30/2025 documented as of this encounter Visit Diagnoses Diagnosis Type 2 diabetes mellitus without complication, with long-term current use of insulin (HCC) documented in this encounter Additional Health Concerns Assessment Noted Time PHQ-9 Depression Total Score: 11 025 1:10 PM EDT documented as of this encounter Care Teams Management Tech Relationship Specialty Start Date End Date Nahomy Patino DO [address] [place] [phone] PCP - General Family Medicine 10/28/18 documented as of this encounter
--- OUTSIDE RECORDS SUMMARY | 2025-08-31 05:03 | XMS_ITS | Clinical Summary ---
Author Organization [employer] Address [address] [facility] 7t [place] [address] Care Team Providers Care Platen Press Operator Apprentice Name Role Phone JustinaNahomy santiago Primary Care Provider + [phone] Allergies No known active allergies Medications polyvinyl alcohol (Liquifilm Tears) 1.4 % ophthalmic solution one drop in both eyes as needed for burning. 021 Active polyethylene glycol, PEG, 3350 (MiraLax) 17 GM/SCOOP powder take 1 packet by oral route every day mixed with 8 oz. water, juice, soda, coffee or tea as needed for Constipation 022 Active BD Pen Needle Fiorella U/F 32G X 4 MM misc USE DAILY WITH lantus solostar 100 each 4 023 Active docusate sodium (Colace) 100 MG capsuleIndicatio ns:Chronic constipation TAKE 1 CAPSULE BY MOUTH TWICE DAILY NEEDED 180 capsule 3 024 Active senna (Senokot) 8.6 MG tabletIndication s:Chronic constipation TAKE 2 TABLETS BY MOUTH EVERY DAY AT BEDTIME NEEDED FOR CONSTIPATION 180 tablet 3 024 Active OXcarbazepine (Trileptal) 150 MG tabletIndication s:Major depression, recurrent, chronic (CMS/HCC) TAKE 1 TABLET BY MOUTH TWICE DAILY 60 tablet 3 024 Active cholecalciferol (Vitamin D-3) 50 MCG (1999) tabletIndication s:Vitamin D deficiency TAKE 1 TABLET BY MOUTH EVERY DAY 90 tablet 3 024 Active HealthyLax 17 g packet Mix 1 packet in 8 ounces of water, juice, coffee or tea and drink once a day NEEDED FOR CONSTIPATION 30 packet 11 Active Diclofenac Sodium 1 % gel APPLY 2 GRAMS TO AFFECTED AREA(S) TWICE DAILY 100 g Active Continuous Glucose District Gauger (FreeStyle Genevieve 2 Mccarley) device Scan sensor every 8 hours 1 each Active LORazepam (Ativan) 0.5 MG tabletIndication s:Chronic bilateral low back pain, unspecified whether sciatica present Take 1 tablet (0.5 mg) by mouth 1 (one) time for 1 dose. Prior to MRI, may repeat after 30min if needed x one dose 2 tablet Active nicotine polacrilex (Commit) 2 MG lozengeIndicatio ns:Tobacco dependence Dissolve 1 lozenge, as directed, every 1-2 hours as needed for cravings. Max 20 lozenges per 24 hours. 144 lozenge 5 Active naloxone (Narcan) 4 mg/0.1 mL nasal sprayIndications :Chronic low back pain, unspecified back pain laterality, unspecified whether sciatica present Administer 1 spray (4 mg) into affected nostril(s) if needed each day for opioid reversal. 2 each 2 Active melatonin 5 MG tablet TAKE 1 OR 2 TABLETS BY MOUTH EVERY DAY AT BEDTIME 60 tablet 3 Active aspirin (Aspirin Adult Low Dose) 81 MG EC tabletIndication s:Type 2 diabetes mellitus without complication, with long-term current use of insulin ([facility]),Other hyperlipidemia Take 1 tablet (81 mg) by mouth Once per day. 90 tablet 3 025 2025 Active atorvastatin (Lipitor) 40 MG tabletIndication s:Type 2 diabetes mellitus without complication, with long-term current use of insulin (HCC),Other hyperlipidemia Take 1 tablet (40 mg) by mouth Once per day. 90 tablet Active lisinopril 40 MG tablet TAKE 1 TABLET BY MOUTH EVERY MORNING 90 tablet Active hydroCHLOROthiaz marivel (HYDRODiuril) 25 MG tablet TAKE 1 TABLET BY MOUTH EVERY MORNING 90 tablet Active cetirizine (ZyrTEC) 10 MG tablet Take 1 tablet (10 mg) by mouth Once per day. 30 tablet 025 2025 Active fluticasone (Flonase) 50 MCG/ACT nasal spray Administer 2 sprays into each nostril Once per day. 16 g 11 Active glucagon (Baqsimi Two Pack) 3 MG/DOSE nasal powderIndication s:Type 2 diabetes mellitus without complication, with long-term current use of insulin (HCC) USE 1 SPRAY (3MG) IN ONE NOSTRIL FOR A PATIENT WITH SEVERE HYPOGLYCEMIA WHO IS NOT RESPONSIVE AND UNABLE SELF-TREAT WITH GLUCOSE. AFTERWARDS TURN ON SIDE. MAY REPEAT IN 15MINUTES IF PATIENT DOES NOT RESPOND. 2 each 1 Active Dulaglutide (Trulicity) 1.5 MG/0.5ML solution auto-injector Inject 1.5 mg under the skin 1 (one) time per week. 2 mL 3 Active Continuous Glucose Sensor (FreeStyle Genevieve 2 Sensor) misc USE DIRECTED, CHANGE EVERY 14 DAYS 2 each Active polyethylene glycol, PEG, 3350 (MiraLax) 17 GM/SCOOP powderIndication s:Constipation, unspecified constipation type 17 grams in 8-12 oz fluid like water at bedtime prn constipation 527 g 2 Active glycerin (Adult) 2 g suppositoryIndic ations:Constipat ion, unspecified constipation type Insert 1 suppository (2 g) into the rectum if needed each day for constipation. 30 suppository 2 025 2024 Active senna (Senokot) 8.6 MG tabletIndication s:Constipation, unspecified constipation type Take 1 tablet (8.6 mg) by mouth at bedtime. 60 tablet 2 025 2025 Active oxyCODONE-acetam inophen (Percocet) 5-325 MG tabletIndication s:Chronic bilateral low back pain, unspecified whether sciatica present Take 1 tablet by mouth every 6 (six) hours if needed for severe pain for up to 28 days. 112 tablet 025 2024 Active acetaminophen (Tylenol 8 Hour) 650 MG ER tablet TAKE 1 TABLET BY MOUTH EVERY 8 HOURS NEEDED FOR MILD PAIN. DO NOT BREAK, CRUSH, DISSOLVE OR CHEW 40 tablet 1 Active naproxen (Naprosyn) 500 MG tablet TAKE 1 TABLET BY MOUTH TWICE DAILY NEEDED FOR MILD PAIN 30 tablet 1 Active tiZANidine (Zanaflex) 2 MG tablet TAKE 1 TABLET BY MOUTH EVERY 8 HOURS NEEDED FOR MUSCLE SPASMS 60 tablet 3 025 Active gabapentin (Neurontin) 300 MG capsule TAKE 1 CAPSULE BY MOUTH TWICE DAILY 60 capsule 3 Active lidocaine (Lidoderm) 5 % patch APPLY 2 PATCHES TOPICALLY TO SKIN, LEAVE ON FOR 12 HOURS AND OFF FOR 12 HOURS DIRECTED 60 patch 3 Active citalopram (CeleXA) 20 MG tabletIndication s:Depression, unspecified depression type TAKE 1 TABLET BY MOUTH EVERY DAY 30 tablet 5 025 Active glucose blood (FREESTYLE LITE) test strip Check BS 3 times a day 200 strip 11 Active TRUEplus Lancets 33G misc Check BS 3 times a day 100 each 11 Active Alcohol Swabs (Alcohol Prep) 70 % pads Check BS 3 times a day 100 each 11 Active Blood Glucose Monitoring Suppl (FreeStyle Pineview Lite) w/Device kit Use to test blood sugar 3 times daily 1 kit Active Alcohol Swabs (Alcohol Prep) 70 % pads USE DIRECTED 4-6 TIMES PER DAY 120 each 023 2024 Discontinued( Reorder (will not trigger notification to Pharmacy)) FREESTYLE LITE test strip TEST BLOOD SUGAR 4-6 TIMES PER DAY 200 strip 11 024 2024 Discontinued( Reorder (will not trigger notification to Pharmacy)) TRUEplus Lancets 33G misc TEST BLOOD SUGAR 4-6 TIMES PER DAY 100 each 11 024 2024 Discontinued( Reorder (will not trigger notification to Pharmacy)) citalopram (CeleXA) 20 MG tabletIndication s:Depression, unspecified depression type TAKE 1 TABLET BY MOUTH ONCE DAILY 30 tablet 5 025 2024 Discontinued tiZANidine (Zanaflex) 2 MG tablet TAKE 1 TABLET BY MOUTH EVERY 8 HOURS NEEDED FOR MUSCLE SPASMS 60 tablet 3 025 2024 Discontinued gabapentin (Neurontin) 300 MG capsule TAKE 1 CAPSULE BY MOUTH TWICE DAILY 60 capsule 3 025 2024 Discontinued lidocaine (Lidoderm) 5 % patch APPLY 2 PATCHES TOPICALLY TO SKIN, LEAVE ON FOR 12 HOURS AND OFF FOR 12 HOURS DIRECTED 60 patch 3 025 2024 Discontinued acetaminophen (Tylenol 8 Hour) 650 MG ER tablet TAKE 1 TABLET BY MOUTH EVERY 8 HOURS NEEDED FOR MILD PAIN. DO NOT BREAK, CRUSH, DISSOLVE OR CHEW 40 tablet 1 025 2024 Discontinued naproxen (Naprosyn) 500 MG tablet TAKE 1 TABLET BY MOUTH TWICE DAILY IN THE MORNING AND AT BEDTIME NEEDED FOR MILD PAIN 30 tablet 1 025 2024 Discontinued Active Problems Problem Noted Date Diagnosed Date Long-term current use of opiate analgesic 2024 Tobacco dependence 12/30/2023 Degenerative disc disease, lumbar 11/28/2022 Thickened endometrium 11/28/2022 Assessment & Plan (11/28/2022 12:35 PM EST): Seen on L-spine MRI -advised schedule pelvic US -keep eval w/ POULTRY HATCHERY MANAGER next week as scheduled Healthcare maintenance 11/28/2022 [...] daily -s/p optho eval Sep 2020 at [facility]->advised reschedule eval -foot exam next visit Chronic bilateral low back pain 08/19/2015 Assessment & Plan (11/28/2022 12:37 PM EST): With persistent severe pain -L-spine MRI w/ [id number] multilevel degenerative spondyloarthropathy (similar to 2020) DEC [...] sensation Essential hypertension 08/19/2015 BMI 40.0-44.9, adult ([facility]) 08/19/2015 Obstructive sleep apnea 08/19/2015 Assessment & [...] Encounters Date Type Department Care Team Description 08/30/2025 9:30 AM EST Clinical Support [facility] MEDICINE [address] [place] [phone] Farnaz Miguel, JULIA Long-term current use of opiate analgesic (Primary Dx) 08/30/2025 Orders Only [facility] [address] [place] [phone] Nahomy Patino DO 08/30/2025 Telephone [facility] [address] [place] [phone] Nahomy Patino DO Care Coordination 08/30/[address] [address] Farnaz Miguel, JULIA WAGE AND SALARY ADMINISTRATOR Agreement renewed today 08/30/2025 Travel 08/25/2025 Refill [facility] [address] [place], [place] [address] [address] Nahomy Patino DO Depression, unspecified depression type 08/19/2025 Telephone [facility] MED[facility] [address] [place] [phone] Farnaz Miguel RN Status Check 08/15/2025 Refill [facility] [address] [place] [address] Nahomy Patino DO 08/10/2025 Refill [facility] WALK[facility] [address] [place] [phone] Nahomy Patino DO 08/08/2025 Refill [facility] [address] [place] [address] Nahomy Patino DO 08/03/2025 9:30 AM EDT Telemedicine [facility] MED[facility]INE [address] [place] [phone] Farnaz Miguel, RN Long-term current use of opiate analgesic 08/03/2025 Refill [facility] MED[facility] [address] [place] [phone] Farnaz Miguel, shoe laster bilateral low back pain, unspecified whether sciatica present (Primary Dx) 08/03/2025 Travel 07/19/2025 Telephone [facility] MED[facility]INE [address] [place] [address] Farnaz Miguel, JULIA Error (VOID this visit) 07/16/2025 Telephone [facility] [address] [place] [address] Nahomy Patino DO Needs WAGE AND SALARY ADMINISTRATOR Tele appt 07/09/2025 Outside Procedure [facility] OPTOMETRY [address] [place] [phone] Antwan Salmonn, OD Presbyopia (Primary Dx) 06/24/2025 9:45 AM EDT Office Visit [facility] OPTOMETRY [address] [place] [phone] Antwan Salmonn, OD Hyperopia of both eyes (Primary Dx) 06/17/2025 1:40 PM EDT Office Visit [facility] [address] [place] [phone] Carmen Gerard MD Constipation, unspecified constipation type (Primary Dx) 06/17/2025 1:00 PM EDT Clinical Support [address] [address] Farnaz Miguel, JULIA Long-term current use of opiate analgesic (Primary Dx) 06/17/[address] [address] Farnaz Miguel, shoe laster bilateral low back pain, unspecified whether sciatica present; Constipation, unspecified constipation type 06/17/2025 Travel 06/09/2025 Telephone [facility] PEDS [address] [place] [address] Nahomy Patino DO Prior Authorization 06/03/[address] [address] Farnaz Miguel, JULIA NCNS WAGE AND SALARY ADMINISTRATOR RV today 05/31/[address] [address] Nahomy Patino DO CGM sensors from Last 3 Months Immunizations Immunization Administration [...] Description 09/29/2025 10:00 AM EST Clinical Support [address] [address] Farnaz Miguel, JULIA 10/01/2025 11:00 AM EST Medication Management [address] [address] Eva oGuld, PharmD [address] [place] [phone] Health Maintenance Due Date Last Done Comments [...] Screening 06/17/2026 06/17/2025 Eye Exam 05/28/2027 05/28/2025, 08/10/2024, 05/28/2025, Additional history exists DTaP/Tdap/Td Vaccines (3 [...] EST Long-term current use of opiate analgesic POCT CHARLY-14 URINE DRUG SCREEN Routine 06/17/2025 [...] ZZZ HISTORICAL HPV E6/E7 RFLX MATTHEW 16 Routine 08/22/2018 11:15 AM EDT from Last 3 Months or Most Recently Relevant to Health Maintenance Results * (ABNORMAL) POCT CHARLY-14 Urine Drug Screen (08/30/2025 9:49 AM EST) Only the most recent of2 resultswithin the time period is included. THC Positive(A) Negative Cocaine Screen, Urine Negative Negative Opiate Screen, Urine Negative Negative Methamphetamine Screen Urine Negative Negative Amphetamine Screen, Urine Negative Negative Benzodiazepines Screen, Urine Negative Negative Barbiturate Screen, Urine Negative Negative Methadone Screen, Urine Negative Negative Buprenophine Screen, Urine Negative Negative TCA, Urine Negative Negative MDMA Urine Negative Negative ng/mL Oxycodone Screen, Urine Positive(A) Negative Comment:WAGE AND SALARY ADMINISTRATOR pt on Percocet Phencyclidine (PCP), Urine Negative Negative Propoxyphene, Urine Negative Negative Fentanyl, Urine Negative Negative Urine Urine specimen obtained by clean catch procedure / Unknown 08/30/2025 9:49 AM EST Farnaz Hill RN - 08/30/2025 9:49 AM EST UTOX cup Lot#[id number] Exp. 08/03/26 Internal Pass Control Nahomy Patino DO POINT OF CARE TEST ENTER/SAUMYA T ORDERABLES Final Result * (ABNORMAL) POCT HGB A1C (04/19/2025 11:47 AM EDT) Pathologist [facility] Hemoglobin A1C 7.3(A) 4.0 - 6.0 % QC Media Lot # [id number] Lot# Expiration Date Blood 04/19/2025 11:4 7 AM EDT Nahomy Patino DO POINT OF CARE TEST ENTER/SAUMYA T ORDERABLES Final Result * Hepatitis C Antibody with Reflex to HCV, RNA, Quantitative, Real-Time PCR (07/15/2024 8:29 AM EDT) Pathologist [facility] Hepatitis C Antibody Nonreactive Nonreactive [facility] Comment:Antibodies to HCV no t detected; does not exclude early acuteHCV infection. Blood Venous blood specimen / Unknown 07/15/2024 8:29 AM EDT 07/15/2024 10:46 AM EDT Nahomy Jurcsak DO LAB BLOOD ORDERABLES Final R esult Performing Organization Address [facility]/ZIP Co de Phone Number [facility] [address] [place] [phone] * HIV-1/2 Antigen and Antibodies, Fourth Generation, with Reflexes (07/15/2024 8:29 AM EDT) HIV AB/AG Nonreactive Nonreactive [facility] Comment:HIV-1 p24 Ag and/or HIV-1/HIV-2 Ab not detected.A test result that is nonreactive does not exclude thepossibility of exposure to or infection with HIV-1 and/orHIV-2. Nonreactive results in this assay for individualswith prior exposure to HIV-1 and/or HIV-2 may be due toantigen and antibody levels that are below the limit ofdetection of this assay.The [employer] HIV Ag/Ab Combo assay result andsupplemental assay results should be interpreted inconjunction with the patient's clinical presentation,history and other laboratory results. If the results areinconsistent with clinical evidence, additional testing issuggested to confirm the result. Blood Venous blood specimen / Unknown 07/15/2024 8:29 AM EDT 07/15/2024 10:46 AM EDT us Nahomy Patino DO LAB BLOOD ORDERABLES Final R esult Performing Organization Address [facility]/ZIP Co de Phone Number [facility] [address] [place] [phone] * (ABNORMAL) Lipid Panel, Standard (07/15/2024 8:29 AM EDT) Triglycerides 70 <150 mg/dL [facility] Comment:Desirable Triglyceri de: less than 150 mg/dLBorderline High Triglyceride 150-199 mg/dLHigh Triglyceride: 200-499 mg/dLVery High Triglyceride: greater than or equal to 5OO mg/dL Cholesterol 195 <200 mg/dL [facility] Comment:Desirable Cholestero l: less than 200 mg/dLBorderline High Cholesterol: 200-239 mg/dLHigh Cholesterol: greater than 239 mg/dL LDL Cholesterol Calculated 137(H) <100 mg/dL [facility] Comment:Desirable LDL: less than 100 mg/dLNear Optimal/Above Optimal LDL: 110- 129 mg/dLBorderline High LDL: 130-159 mg/dLHigh LDL: 160-189 mg/dLVery High LDL: greater than or equal to 190 mg/dL HDL Cholesterol 44 >40 mg/dL [facility] Comment:Desirable HDL: great er than 40 mg/dL Note: This HDL assay may give artificially low results in patients with liver disease. Blood Venous blood specimen / Unknown 07/15/2024 8:29 AM EDT 07/15/2024 10:46 AM EDT us Nahomy Patino DO LAB BLOOD ORDERABLES Final R esult Performing Organization Address [facility] Co de Phone Number [facility] [address] [place] [phone] * Albumin, Random Urine W/Creatinine (07/15/2024 8:25 AM EDT) Creatinine, Urine 91.96 mg/dL [facility] Microalbumin Urine 11.0 mg/L [facility] Microalbum Creatinine Ratio Ur 11.9 <30 ug/mg cr [facility] Comment:Albumin/Creatinine R atio Reference Ranges: Normal: < 30 ug/mg creatinine Microalbuminuria: 30 - 300 ug/mg creatinineClinical Albuminuria: > 300 ug/mg creatinine Urine (Urine, Random) 07/15/2024 8:25 AM EDT 07/15/2024 10:51 AM EDT us Nahomy Patino DO LAB URINE ORDERABLES Final R esult Performing Organization Address [facility] Co de Phone Number [facility] [address] [place] [phone] * BI Mammogram Screening Tomosynthesis Bilateral (06/10/2024 3:35 PM EDT) Anatomical Region Laterality Modality Breast Bilateral Mammography 06/10/2024 3:35 PM EDT Narrative 07/08/2024 12:56 PM EDT [facility] [address] [place], [place] [address] Mammography Report Signed with Addenda Patient: Michelle Driscoll MR#: [id number] : 1965 Acct:[id number] Age/Sex: 59 / F ADM Date: 06/10/24 Loc: MAMMTremayne Attending Dr: Nahomy Patino DO Ordering Physician: Nahomy Patino DO Results: 1N egative Date of Service: 06/10/24 Follow Up: 1 Year From [facility] Mammogram Procedure(s): MM tomosynthesis screening BI Accession Number(s): [id number] cc: Nahomy Patino DO ADDENDUM ADDENDUM #1 [...] compared to prior exams dating back to 2006. TECHNIQUE: Digital breast tomosynthesis is performed in [...] 07/08/24 1253 DD/ 1535 TD/TT: 06/10/24 1550 Interior Plant Caretaker: Procedure Note Donotuseinterpreter, Image - 07/13/2024 [facility] [address] [place] [address] Mammography Report Signed with Addenda Patient: Corinne Driscoll#: [id number] : 1965Acct:[id number] Age/Sex: 59 / FADM Date: 06/10/24 Loc: STEPHANIE Attending Dr: Nahomy Patino DO Ordering Physician: Nahomy Patino DORilanaults: 1N egative Date of Service: 06/10/24Follow Up: 1 Year From Orig inal Mammogram Procedure(s): MM tomosynthesis screening BI Accession Number(s): [id number] cc: Nahomy Patino DO ADDENDUM ADDENDUM #1 [...] OV> 07/08/24 1253 DD/ 34 TD/TT: 06/10/24 1550 Interior Plant Caretaker: Nahomy Patino DO IMG BI PROCEDURES Edited Res ult - Final * HPV E6/E7 RFLX MATTHEW 16 18/45 (08/22/2018 11:15 AM EDT) ADDITIONAL TESTING Not indicated () [facility] Comment: Test Performed by Celeste Godoy, [facility], [address] [place] [address] Vazquez Whitney M.D., Ph.D., Director of Laboratories , CLIA [id number] HPV 16 RNA Test not performed [facility] HPV 18/45 RNA Test not performed [facility] HPV mRNA E6/E7 Not Detected NOT DETECTED [facility] Comment: This test was performed using the APTIMA(R) HPV Assay ([employer] This assay detects E6/E7 viral messenger RNA (mRNA) from 14 high-risk HPV types (16,18,31,33,35,39,45,51, 52,56,58,59,66,68). For additional information please refer to: http://education.Gunosy/faq/QLH570s6 (This link is being provided for informational/ educational purposes only.) The analytical performance characteristics of this assay have been determined by [facility] [place], [place]. The modifications have not been cleared or approved by the FDA. This assay has been validated pursuant to the CLIA regulations and is used for clinical purposes. Please note: Effective 07/09/2016, HPV testing will be performed using [employer]'s APTIMA test which targets mRNA. Detecting mRNA instead of DNA, as in older methods, offers significant improvements in specificity. 08/22/2018 11:1 5 AM EDT us Nahomy Patino DO HISTORICAL/NON ORDERABLE LAB S Final Result [facility] [address] from Last 3 Months or Most Recently Relevant to Health Maintenance Insurance [facility] C3 Care Teams Platen Press Operator Apprentice Relationship Specialty Start Date End Date Nahomy Patino DO [address] [place] [phone] PCP - General Family Medicine 10/28/18
--- OUTSIDE RECORDS SUMMARY | 2025-08-31 05:03 | XMS_ITS | Encounter Summary ---
Author Organization [employer] Address [address] [facility] 7t [place] [address] Care Team Providers Care Clinical Dietitian Name Role Phone Nahomy Patino DO Primary Care Provider + [phone] Reason for Visit * Reason Onset Date Comments Appointment Request 08/26/2024 Encounter Details Date Type Department Care Team ([facility] st Contact Info) Description 08/26/2024 Telephone [facility] MEDICINE [address] [place], [place] [phone] Nahomy Patino DO [address] [place], [place] [phone] Appointment Request Social History Tobacco Use Types [...] EDT Return TC to patient, pt cancelled INDUSTRIAL ENG RV appt 09/14/24, states she's traveling to [place] today and wont be back until after Thanksgiving. INDUSTRIAL ENG RV rescheduled for 09/28/24 @ 10:30am * Telephone Encounter - Akiko Ocampo - 08/26/2024 10:08 AM EDT Tc from pt called in to cancel 09/14/24 appt. States is on vacation and does not return after thanksgiving. documented in this encounter Plan of Treatment Upcoming Encounters Date Type Department Care Team (Late st Contact Info) Description 09/29/2025 10:00 AM EST Clinical Support [facility] MEDICINE [address] [place] [phone] Farnaz Miguel, JULIA 10/01/2025 11:00 AM EST Medication Management [facility] MEDICINE [address] [place] [address] Eva Gould, PharmD [address] [place] [address] documented as of this encounter Visit Diagnoses Not on filedocumented in this encounter Additional Health Concerns Assessment Noted Time PHQ-9 Depression Total Score: 0 10/08/20 23 9:07 AM EST documented as of this encounter Care Teams Clinical Dietitian Relationship Specialty Start Date End Date Nahomy Patino DO [address] [place] [address] PCP - General Family Medicine 10/28/18 documented as of this encounter
--- OUTSIDE RECORDS SUMMARY | 2025-08-31 05:03 | XMS_ITS | Encounter Summary ---
Author Organization [employer] Address [address] [facility] 7[address] [place] [address] Care Team Providers Care Testing Shaking Shipping Name Role Phone Nahomy Patino Primary Care Provider + [phone] Reason for Visit * Reason Comments Med Refill Encounter Details Date Type Department Care Team (Late st Contact Info) Description 01/29/2024 Refill [facility] WALK-IN [address] [phone] Name, MD Dustin [address] [place], [place] [phone] Social History Tobacco Use Types Packs/Day Years [...] Description 09/29/2025 10:00 AM EST Clinical Support [address] [address] Farnaz Miguel RN 10/01/2025 11:00 AM EST Medication Management [address] [address] Eva Gould, PharmD [address] [place] [phone] documented as of this encounter Visit Diagnoses Not on filedocumented in this encounter Additional Health Concerns Assessment Noted Time PHQ-9 Depression Total Score: 0 10/08/20 23 9:07 AM EST documented as of this encounter Care Teams Testing Shaking Shipping Relationship Specialty Start Date End Date Nahomy Patino DO [address] [place] [phone] PCP - General Family Medicine 10/28/18 documented as of this encounter
--- OUTSIDE RECORDS SUMMARY | 2025-08-31 05:03 | XMS_ITS | Encounter Summary ---
Author Organization [employer] Address [address] [place] [address] 7t [place] [address] Care Team Providers Care Dogger Name Role Phone Nahomy Patino DO Primary Care Provider + [phone] Encounter Details Date Type Department Care Team (Late Contact Info) Description 11/30/2022 Orders Only [address] [address] Mackenzie Webb, RN Social History Tobacco Use [...] Description 09/29/2025 10:00 AM EST Clinical Support [address] [address] Farnaz Miguel, JULIA 10/01/2025 11:00 AM EST Medication Management [address] [address] Eva Gould, PharmD [address] [place] [address] documented as of this encounter Procedures Procedure Name Priority Date/Time Associated Diagnosis Comments US PELVIS TRANSVAGINAL Routine 12/04/2022 1:20 PM EST documented in this encounter Results * US Pelvis Transvaginal (12/04/2022 1:20 PM EST) Anatomical Region Laterality Modality Pelvis Ultrasound 12/04/2022 1:20 PM EST Narrative 12/05/2022 6:26 PM EST [facility] [place] [facility] [place] [address] Ultrasound Report Signed Patient: Michelle Driscoll MR#: [id number] : 1965 Acct:[id number] Age/Sex: 57 / F ADM Date: 12/04/22 Loc: HO.HMGCX Attending Dr: Nahomy Patino DO Ordering Physician: Nahomy Patino DO Date of Service: 12/04/22 Procedure(s): US pelvic and transvaginal Accession Number(s): [id number] cc: Nahomy Patino DO EXAMINATION: US PELVIS [...] signed by Markus Mckeon MD in OV> 12/05/22 1823 DD/ 1320 TD/TT: Hot Box Operator: BELLA Procedure Note Donotuseinterpreter, Image - 12/05/2022 [facility] [place] [facility] [place] [address] Ultrasound Report Signed Patient: Corinne Driscoll#: [id number] : 1965Acct:[id number] Age/Sex: 57 / FADM Date: 12/04/22 Loc: HO.HMGCX Attending Dr: Nahomy Patino DO Ordering Physician: Nahomy Patino DO Date of Service: 12/04/22 Procedure(s): US pelvic and transvaginal Accession Number(s): [id number] cc: Nahomy Patino DO EXAMINATION: US PELVIS [...] signed by Markus Mckeon MD in OV> 12/05/22 1823 DD/ 1320 TD/TT: Hot Box Operator: BELLA [facility] External Provider IMG US PROCEDURES Final Result documented in this encounter Visit Diagnoses Not on filedocumented in this encounter Additional Health Concerns Assessment Noted Time PHQ-9 Depression Total Score: 12 023 12:05 PM EST documented as of this encounter Care Teams Dogger Relationship Specialty Start Date End Date Nahomy Patino DO [address] [place] [address] PCP - General Family Medicine 10/28/18 documented as of this encounter
--- OUTSIDE RECORDS SUMMARY | 2025-08-31 05:03 | XMS_ITS | Encounter Summary ---
Author Organization [employer] Address [address] [facility] 7t [place] [address] Care Team Providers Care Dispatch Associate Name Role Phone Nahomy Patino DO Primary Care Provider + [phone] Reason for Visit * Reason Comments Med Refill Encounter Details Date Type Department Care Team (Late st Contact Info) Description 08/23/2023 Refill [facility] MEDICINE [address] [place], [place] [phone] Nahomy Patino DO [address] [place], [place] [phone] Other chronic pain Social History Tobacco Use [...] Description 09/29/2025 10:00 AM EST Clinical Support [facility] MEDICINE [address] [place] [phone] Farnaz Miguel RN 10/01/2025 11:00 AM EST Medication Management [facility] MEDICINE [address] [place] [phone] Eva Gould, PharmD [address] [place] [address] documented as of this encounter Visit Diagnoses Diagnosis Other chronic pain documented in this encounter Additional Health Concerns Assessment Noted Time PHQ-9 Depression Total Score: 12 023 12:05 PM EST documented as of this encounter Care Teams Dispatch Associate Relationship Specialty Start Date End Date Nahomy Patino DO [address] [place] [address] PCP - General Family Medicine 10/28/18 documented as of this encounter
--- OUTSIDE RECORDS SUMMARY | 2025-08-31 05:03 | XMS_ITS | Encounter Summary ---
Author Organization [employer] Address [address] [facility] 7t [place] [address] Care Team Providers Care Drain Tiler Name Role Phone Nahomy Patino Primary Care Provider [phone] Encounter Details Date Type Department Care Team (Late Contact Info) Description 12/24/2022 Orders Only [address] [address] Tete Herring LPN Social History Tobacco Use [...] Encounters Date Type Department Care Team (Late Contact Info) Description 09/29/2025 10:00 AM EST Clinical Support [address] [address] Farnaz Miguel RN 10/01/2025 11:00 AM EST Medication Management [address] [address] Eva Gould, Farshad [address] [place] [address] documented as of this encounter Visit Diagnoses Not on filedocumented in this encounter Additional Health Concerns Assessment Noted Time PHQ-9 Depression Total Score: 12 023 12:05 PM EST documented as of this encounter Care Teams Drain Tiler Relationship Specialty Start Date End Date Nahomy Patino DO [address] [place] [address] PCP - General Family Medicine 10/28/18 documented as of this encounter
--- OUTSIDE RECORDS SUMMARY | 2025-08-31 05:03 | XMS_ITS | Encounter Summary ---
Author Organization [employer] Address [address] [facility] 7t [place] [address] Care Team Providers Care 8Th Grade Mathematics Teacher Name Role Phone Nahomy Patino DO Primary Care Provider + [phone] Reason for Visit * Reason Comments Med Refill Encounter Details Date Type Department Care Team (Late st Contact Info) Description 11/15/2023 Refill [facility] MEDICINE [address] [place], [place] [phone] Nahomy Patino DO [address] [place], [place] [phone] Chronic low back pain, unspecified back pain [...] Description 09/29/2025 10:00 AM EST Clinical Support [address] [address] Farnaz Miguel RN 10/01/2025 11:00 AM EST Medication Management [address] [address] Eva Gould, PharmD [address] [place] [phone] documented as of this encounter Visit Diagnoses Diagnosis Chronic low back pain, unspecified back pain laterality, unspecified whether sciatica present documented in this encounter Additional Health Concerns Assessment Noted Time PHQ-9 Depression Total Score: 0 10/08/20 23 9:07 AM EST documented as of this encounter Care Teams 8Th Grade Mathematics Teacher Relationship Specialty Start Date End Date Nahomy Patino DO [address] [place] [phone] PCP - General Family Medicine 10/28/18 documented as of this encounter
--- OUTSIDE RECORDS SUMMARY | 2025-08-31 05:03 | XMS_ITS | Encounter Summary ---
Author Organization [employer] Address [address] [facility] 7t [place] [address] Care Team Providers Care Dairy Processing Supervisor Name Role Phone Nahomy Patino DO Primary Care Provider + [phone] Encounter Details Date Type Department Care Team ([facility] st Contact Info) Description 08/30/2025 Orders Only [facility] MEDICINE [address] [place], [place] [phone] Nahomy Patino DO [address] [place], [place] [phone] Social History Tobacco Use Types Packs/Day Years [...] as of this encounter Progress Notes * Nahomy Patino DO - 08/30/2025 2:07 PM EST Rx for glucometer and supplies sent as requested by FRUIT OR NUT FARM WORKER RN. documented in this encounter Plan of Treatment Upcoming Encounters Date Type Department Care Team (Late st Contact Info) Description 09/29/2025 10:00 AM EST Clinical Support [address] [address] Farnaz Miguel, RN 10/01/2025 11:00 AM EST Medication Management [address] [address] Eva Gould, PharmD [address] [place] [address] documented as of this encounter Visit Diagnoses Not on filedocumented in this encounter Additional Health Concerns Assessment Noted Time PHQ-9 Depression Total Score: 11 025 1:10 PM EDT documented as of this encounter Care Teams Dairy Processing Supervisor Relationship Specialty Start Date End Date Nahomy Patino DO [address] [place] [address] PCP - General Family Medicine 10/28/18 documented as of this encounter
--- OUTSIDE RECORDS SUMMARY | 2025-08-31 05:03 | XMS_ITS | Encounter Summary ---
Author Organization [employer] Address [address] [facility] 7t [place] [address] Care Team Providers Care Configuration Engineer Name Role Phone Nahomy Patino DO Primary Care Provider + [phone] Reason for Visit * Reason Onset Date Comments Reschedule 05/22/2024 Encounter Details Date Type Department Care Team ([facility] st Contact Info) Description 05/22/2024 Telephone [facility] MEDICINE [address] [place], [place] [phone] Nahomy Patino DO [address] [place], [place] [phone] Reschedule Social History Tobacco Use Types Packs/Day [...] Description 09/29/2025 10:00 AM EST Clinical Support [facility] MEDICINE [address] [place] [phone] Farnaz Miguel, RN 10/01/2025 11:00 AM EST Medication Management [facility] MEDICINE [address] [place] [phone] Eva Gould, PharmD [address] [place] [address] documented as of this encounter Visit Diagnoses Not on filedocumented in this encounter Additional Health Concerns Assessment Noted Time PHQ-9 Depression Total Score: 0 10/08/20 23 9:07 AM EST documented as of this encounter Care Teams Configuration Engineer Relationship Specialty Start Date End Date Nahomy Patino DO [address] [place] [address] PCP - General Family Medicine 10/28/18 documented as of this encounter
[2025-08-31 05:15] LABS: Alanine Aminotransferase 23 U/L (0-31); Albumin Level 4.9 g/dL (3.5-5.0); Alkaline Phosphatase 137 U/L (39-117); Anion Gap 19 (12-20); Aspartate Amino Transferase 16 U/L (5-31); Blood Urea Nitrogen 14 mg/dL (9-16); Calcium 9.4 mg/dL (8.4-10.2); Carbon Dioxide 23 mmol/L (22-29); Chloride 101 mmol/L (96-108); Creatinine Clr Calc Pharmacy 72.9; Estimated Glomerular Filt Rate > 60; Potassium 3.7 mmol/L (3.3-5.1); Sodium 139 mmol/L (135-145); Total Protein 8.3 g/dL (6.5-8.0)
--- NOTE | 2025-08-31 07:52 | ED.SEIZURE ---
HPI - Seizure General Chief Complaint: Seizure Stated Complaint: Seizure Time Seen by Provider: 08/31/25 05:05 Source: patient, EMS and old records reviewed Mode of arrival: EMS Limitations: no limitations History of Present Illness ED Provider: Dr. Yoana Bui HPI Narrative: 60-year-old female with a history of seizure disorder, hypertension, hyperlipidemia, chronic low back pain presenting with apparent seizure that occurred immediately prior to arrival. Patient states that her was lying in bed with her when she reportedly had a tonic-clonic seizure. She did bite her tongue. No loss of bowel or bladder control. Had been feeling well prior to this but admits to snorting cocaine at a alliance party earlier tonight. Admits that she has had seizures in the past after using cocaine. States that she was ?upset with herself that she did it and does not plan to do it again ?. Denies associated fever, headache, neck stiffness, chest pain, difficulty breathing, abdominal pain, nausea, vomiting, bowel changes or urinary complaints. Also skipped her dose of carbamazepine yesterday which also may have contributed to her seizure. Last dose was the day before yesterday. Seizure History: Yes Place: Home Related Data Home Medications ?Medication ?Instructions ?Recorded ?Confirmed atorvastatin 20 mg tablet (Lipitor) 20 mg PO BEDTIME 01/02/21 07/22/25 cholecalciferol (vitamin D3) 50 50 mcg PO DAILY 01/02/21 07/22/25 mcg (2,000 unit) capsule citalopram 20 mg tablet (Celexa) 20 mg PO DAILY 01/02/21 07/22/25 fluticasone propionate 50 2 spray intranasal DAILY 01/02/21 07/22/25 mcg/actuation nasal spray,suspension (Flonase Allergy Relief) gabapentin 300 mg capsule 600 mg PO BID 01/02/21 07/22/25 glipizide 5 mg tablet 5 mg PO BID 01/02/21 07/22/25 hydrochlorothiazide 25 mg tablet 25 mg PO DAILY 01/02/21 07/22/25 lisinopril 40 mg tablet 40 mg PO DAILY 01/02/21 07/22/25 loratadine 10 mg tablet (Claritin) 10 mg PO DAILY 01/02/21 07/22/25 naloxone 4 mg/actuation nasal 1 spray intranasal Q2M 01/02/21 07/22/25 spray (Narcan) oxycodone-acetaminophen 5 mg-325 1 tab PO Q6H PRN 01/02/21 07/22/25 mg tablet (Percocet) tizanidine 2 mg capsule 2 mg PO Q8H PRN 01/02/21 07/22/25 dulaglutide 1.5 mg/0.5 mL mg subcut QWEEK 07/22/25 07/22/25 subcutaneous pen injector (Trulicity) Previous Rx's ?Medication ?Instructions ?Recorded cyclobenzaprine 10 mg tablet 10 mg PO TID PRN muscle spasm #10 06/26/21 tabs lidocaine 5 % topical patch 1 patch topical DAILY #15 ea 06/26/21 (Lidoderm) oxcarbazepine 150 mg tablet 150 mg PO BID #60 tabs 07/17/24 Allergies Allergy/AdvReac Type Severity Reaction Status Date / Time No Known Allergies Allergy Verified 08/31/25 04:39 Review of Systems Review of Systems: as per HPI, full review of systems performed and negative but for the above mentioned pertinent positives and negatives. [facility] Past Medical History Medical History Cyst Arthritis High blood pressure Diabetes 1.5, managed as type 1 Social History Social History Alcohol intake: current Alcohol intake frequency: holidays/special occasions only Smoked in Last 30 Days: Yes Use of substances other than those prescribed or required for medical reasons: Yes Substance Use Type: Crack/Cocaine Substance Use Frequency: Occasionally Substance Use Frequency Other:: last used yesterday Last Used Substance: Days (ago) Advance Directives: No Advance Directives Information Provided: No Patient : No Current occupational status: disabled Current occupation: Right Handed Physical Exam Exam: Exam: GENERAL: Well-Appearing, conversant, no acute distress. SKIN: Normal skin color for ethnicity, warm, dry, no rashes noted. HEENT:? Normocephalic, atraumatic, no stridor, posterior oropharynx nonerythematous, dentition intact, EOMI, abrasion overlying the right lateral aspect of the tongue, bleeding controlled. NECK: Soft, supple, full ROM, midline structures nontender, no step-offs, no deformities, no lymphadenopathy. CHEST: Heart regular tachycardic, no murmurs, symmetric chest rise and fall. PULMONARY: Clear to auscultation bilaterally, no labored breathing, no wheezes/rhales/rhonchi. ABDOMINAL: Soft, nondistended, nontender, positive bowel sounds in all quadrants. : Deferred. MUSCULOSKELETAL: Normal tone, full range of motion, no deformities, no peripheral edema. NEURO: Alert and oriented x3, CN II through XII intact, equal strength and sensation bilateral upper and lower extremities, no focal neurologic deficits.? PSYCHIATRIC: Normal affect, fluid speech, good eye contact and appropriate demeanor. Vital Signs: Vital Signs: Last Vital Signs Temp 98.1 F 08/31/25 08:25 Pulse 101 H 08/31/25 08:25 Resp 20 08/31/25 08:25 BP 148/86 H 08/31/25 08:25 Pulse Ox 95 08/31/25 08:25 O2 Del Method Room Air 08/31/25 08:25 BMI result Body Mass Index 37.8 Medications Administered Discontinued Medications Generic Name Dose Route Start Last Admin Trade Name Freq PRN Reason Stop Dose Admin Acetaminophen 975 mg 08/31/25 05:20 08/31/25 05:53 Acetaminophen 325 Mg Tablet PO 08/31/25 05:21 975 mg ONCE ONE Administration Gabapentin 600 mg 08/31/25 05:20 08/31/25 05:54 Gabapentin 600 Mg Tablet PO 08/31/25 05:21 600 mg ONCE ONE Administration Ibuprofen 600 mg 08/31/25 05:20 08/31/25 05:54 Ibuprofen 600 Mg Tablet PO 08/31/25 05:21 600 mg ONCE ONE Administration Oxcarbazepine 150 mg 08/31/25 05:20 08/31/25 05:53 Oxcarbazepine 150 Mg Tablet PO 08/31/25 05:21 150 mg ONCE ONE Administration Medical Decision Making Medical Decision Making MDM Narrative: Patient presents today with chief complaint of seizure activity. Differential diagnosis includes breakthrough seizure, medication noncompliance, intracranial pathology such as hemorrhage or embolism, infectious process such as meningitis, stimulant use or drug toxicity, hyperthyroidism, electrolyte abnormality, nonepileptic seizure activity (psychogenic seizure activity), among many others. Leukocytosis likely in the setting of seizure activity. Patient has no evidence of infection today, no fevers in the last 24 hours and no infectious symptoms. Patient reports use of cocaine which has triggered seizures in the past for her. Additionally, she has skipped her carbamazepine dose yesterday. We had an extensive discussion regarding cocaine use, seizure disorders and importance of maintaining her medications and avoiding substance use. She does not wish to seek treatment at this time, feels that this is not going to happen again. Using shared decision making, plan for discharge home to follow-up with primary care and/or specialist. Patient understands and agrees with plan for discharge. Discharged home in stable condition. Differential Diagnosis Differential Diagnoses: The differential diagnosis associated with the presentation includes (As above) Admission/Observation Consideration of admission/observation: Escalation of care including admission/observation considered Lab Data MDM Lab Attestation statement: I reviewed the patient's lab results. 08/31/25 04:50 08/31/25 04:50 Labs: Lab Results 08/31/25 Range/Units 04:50 WBC 17.8 H (4.8-10.8) X10*3/uL RBC 5.24 (4.20-5.50) X10*6/uL Hgb 15.5 (12.0-16.0) g/dl Hct 46.2 (37.0-47.0) % MCV 88.2 (80.0-98.0) fL MCH 29.6 (27.0-33.0) pg MCHC 33.5 (31.0-35.0) g/dl RDW 13.8 (11.0-16.0) % Plt Count 284 (160-400) X10*3/uL MPV 9.5 (9.4-12.3) fL Immature Gran % (Auto) 0.5 H (0.0-0.4) % Neut % (Auto) 75.7 H (45-73) % Lymph % (Auto) 15.5 L (20-40) % Parker % (Auto) 6.3 (2-11) % Eos % (Auto) 1.7 (0-4) % Baso % (Auto) 0.3 (0-2) % Lymph # (Auto) 2.8 (1.2-4.9) X10*3/uL Parker # (Auto) 1.1 (0.1-1.2) X10*3/uL Eos # (Auto) 0.3 (0.0-0.4) X10*3/uL Baso # (Auto) 0.1 (0.0-0.2) X10*3/uL Abs Immat Gran (auto) 0.09 H (0.00-0.03) X10*3/uL Absolute Neuts (auto) 13.5 H (2.0-8.3) x10*3/uL Absolute Nucleated RBC 0.000 (0.0-0.012) X10*3/uL Nucleated RBC % (auto) 0.0 (0.0-0.2) /100WBC Sodium 139 (135-145) mmol/L Potassium 3.7 (3.3-5.1) mmol/L Chloride 101 (96-108) mmol/L Carbon Dioxide 23 (22-29) mmol/L Anion Gap 19 (12-20) BUN 14 (9-16) mg/dL Creatinine 0.82 (0.5-1.4) mg/dL Estim Creat Clear Calc 72.9 Estimated GFR > 60 Random Glucose 253 H (60-115) mg/dL Calcium 9.4 (8.4-10.2) mg/dL Total Bilirubin 0.5 (0.0-1.0) mg/dL AST 16 (5-31) U/L ALT 23 (0-31) U/L Alkaline Phosphatase 137 H (39-117) U/L Total Protein 8.3 H (6.5-8.0) g/dL Albumin 4.9 (3.5-5.0) g/dL External Record Review External record reviewed: Inpatient record Prescription Management I considered prescription management with: Other (Antiepileptics) Chronic Conditions Patient?s care impacted by: Hypertension and Other (Epilepsy, cocaine use disorder) Social Determinants Patient?s care significantly limited by Social Determinants of Health including: Other Social Determinant of Health Discharge Plan Discharge Clinical Impression: Breakthrough seizure, Cocaine use, Leukocytosis Patient Disposition: Home, Self-Care Instructions: Dehydration (ED), Cocaine Use Disorder (ED), Recurrent Seizures in Adults (ED) Additional Instructions: Please continue taking your seizure medications as prescribed. Avoid using cocaine as this alone can cause breakthrough seizures. Try to drink as much fluid over the next couple of days as possible. Return to the emergency department immediately with any new or worsening symptoms including: Further seizure activity, chest pain, difficulty breathing, severe headache, worsening back pain despite medications, any new symptom that concerns you. Call 911 with any medical emergency. Prescriptions: No Action cyclobenzaprine 10 mg tablet 10 mg PO TID PRN (Reason: muscle spasm) Qty: 10 0RF lidocaine [Lidoderm] 5 % adhesive patch,medicated 1 patch topical DAILY Qty: 15 0RF Rx Instructions: leave on most painful area for up to 12 hrs oxcarbazepine 150 mg tablet 150 mg PO BID Qty: 60 0RF loratadine [Claritin] 10 mg tablet 10 mg PO DAILY tizanidine 2 mg capsule 2 mg PO Q8H PRN Narcan 4 mg/actuation spray,non-aerosol 1 spray intranasal Q2M Rx Instructions: spray 1 dose into ONE nostril; alternate nostrils w each dose until help arrives fluticasone propionate [Flonase Allergy Relief] 50 mcg/actuation spray,suspension 2 spray intranasal DAILY Rx Instructions: administer into each nostril hydrochlorothiazide 25 mg tablet 25 mg PO DAILY glipizide 5 mg tablet 5 mg PO BID lisinopril 40 mg tablet 40 mg PO DAILY gabapentin 300 mg capsule 600 mg PO BID citalopram [Celexa] 20 mg tablet 20 mg PO DAILY atorvastatin [Lipitor] 20 mg tablet 20 mg PO BEDTIME cholecalciferol (vitamin D3) 50 mcg (2,000 unit) capsule 50 mcg PO DAILY oxycodone-acetaminophen [Percocet] 5-325 mg tablet 1 tab PO Q6H PRN Trulicity 1.5 mg/0.5 mL pen injector subcut QWEEK Interventions: ED Discharge Assessment Last Done: 08/31/25 08:25 Discharge Date/Time: 08/31/25 08:27 Print Language: Arabic
[2025-08-31 08:25] VITALS: BP 148/86; PULSE 101; RESP 20; TEMP 36.7; O2SAT 95
== END 2025-08-31 08:27 | disposition home or self-care (01) ==
PROVIDERS: Emergency Provider Emergency Medicine
DX: G40.909 Epilepsy, unspecified, not intractable, without status epilepticus (principal); F14.10 Cocaine abuse, uncomplicated; I10 Essential (primary) hypertension; E10.9 Type 1 diabetes mellitus without complications; G89.29 Other chronic pain; M54.50 Low back pain, unspecified; Z79.899 Other long term (current) drug therapy
CPT/HCPCS: 36415; 80053; 85025; 99283; 99284

== ENCOUNTER 2025-10-18 11:19 | Outpatient (REF) | payer MEDICAID, SELFPAY ==
--- OUTSIDE RECORDS SUMMARY | 2025-10-18 13:30 | XMS_ITS | Encounter Summary ---
Author Organization [employer] Address [address] [facility] 7t [place] [address] Care Team Providers Care Potash Flaker Name Role Phone Nahomy Patino DO Primary Care Provider + [phone] Reason for Visit * Reason Comments TELEPHONIC NURSE RV Encounter Details Date Type Department Care Team (Latest Contact Info) Description 10/18/2025 1:30 PM EST Clinical Support [facility] MEDICINE [address] [place], [place] [phone] Farnaz Miguel RN Long-term current use of [...] Progress Notes * Farnaz Miguel RN - 10/18/2025 1:30 PM EST SUBJECTIVE: Michelle Driscoll is a 60 y.o. year old female who presents for TELEPHONIC NURSE RV Preferred language for medical information: Rwandan Michelle Driscoll does report adherence to Percocet 5 mg, take 1 tablet every 6 hours PRN, last jjuzruiu90/07/2025. The patient last took Percocet on: 10/01/25 Medication is: 100% % effective at alleviating pain. Pt c/o vomiting and diarrhea for 5 days, sneezing and congestion as well. Stated she is unable to keep anything down. She is also weepy and c/o increased depression r/t her health, family issues. Shestated she wish she was . She denies any plan to harm herself. Pt recently returned from extended travel to [place]. OBJECTIVE: KNOWLEDGE ANALYST checked: 10/18/2025 Pill count completed for Percocet , count today is 0 , anticipated count should be 0, this is as expected. Vital Signs Pain Score: 10-Worst pain ever Pain Loc: Abdomen Pain Education: Yes Additional pain site: back, knee's L>R, left hip and left groin Last PCP visit: 04/19/2025 Controlled substance agreement signed: Controlled Substance Agreement 08/30/2025 TELEPHONIC NURSE Tier: 1 Current Medications[1] Smoking status: Denies ETOH use: Denies Illicit substances: Denies. She stated she hasn't used cocaine since before . Marijuana use: Yes, gummies. Marijuana card: No , Marijuana Acquired from: Dispensary Lab Results Component Value Date POCTHC Positive (A) 10/18/2025 POCCOCAINEUR Positive (A) 10/18/2025 POCOPIATEUR Negative 10/18/2025 DOAUR Negative 10/18/2025 POCAMPHETAMI Negative 10/18/2025 POCBENZODIUR Negative 10/18/2025 POCBARBSCRN Negative 10/18/2025 POCMETHADOUR Negative 10/18/2025 POCBUPSCRN Negative 10/18/2025 POCTCAUR Negative 10/18/2025 POCMDMAUR Negative 10/18/2025 POCOXYCODONE Negative 10/18/2025 POCPHENCYCUR Negative 10/18/2025 PROPOXUR Negative 08/30/2025 FENTANYLURIN Negative 10/18/2025 Reviewed patients UTOX results. Pt denies using any illicit substances. Asked if she has been smoking marijuana, she denies. She states that her smokes it all the time around her. Explained to her I would send her UTOX out for ADRIANA confirmation. ASSESSMENT: Encounter Diagnosis Name Primary? Long-term current use of opiate analgesic Yes PLAN: Called Janet OBRIEN meeting with patient at this time. Advised patient to be seen in urgent care tonight if she can't wait to come back in tomorrow morning as [facility] is full as of this time. Spoke with PCP, made aware of todays UTOX results and patients emotional & physical c/o. Pt aware a percocet refill was sent to pharmacy on 10/15/25. Information on pain group given: Previously discussed Information on acupuncture given: Previously discussed Narcan education provided: Previously discussed Narcan prescription: active Michelle Driscoll will continue taking medication as prescribed and follow up at the next TELEPHONIC NURSE visit or sooner if needed. Michelle Driscoll has verbalized understanding of care plan. Future Appointments Date Time Provider Department Center 11/17/2025 9:00 AM Eva Gould PharmD MEDICINE [facility] 11/19/2025 11:00 AM Nahomy Patino DO MEDICINE [facility] 11/24/2025 8:30 AM Farnaz Miguel RN MEDICINE [facility] Farnaz Miguel RN [1] Current Outpatient Medications: oxyCODONE-acetaminophen (Percocet) 5-325 MG tablet, Take 1 tablet by mouth every 6 (six) hours if needed for severe pain for up to 7 days., Disp: 28 tablet, Rfl: 0 acetaminophen (Tylenol 8 Hour) 650 MG ER tablet, TAKE 1 TABLET BY MOUTH EVERY 8 HOURS NEEDED FORMILD PAIN. DO NOT BREAK, CRUSH, DISSOLVE OR CHEW, Disp: 40 tablet, Rfl: 1 Alcohol Swabs (Alcohol Prep) 70 % pads, Check BS 3 times a day, Disp: 100 each, Rfl: 11 aspirin (Aspirin Adult Low Dose) 81 MG EC tablet, Take 1 tablet (81 mg) by mouth Once per day., Disp: 90 tablet, Rfl: 3 atorvastatin (Lipitor) 40 MG tablet, Take 1 tablet (40 mg) by mouth Once per day., Disp: 90 tablet,Rfl: 0 BD Pen Needle Fiorella U/F 32G X 4 MM misc, USE DAILY WITH lantus solostar, Disp: 100 each, Rfl: 4 Blood Glucose Monitoring Suppl ([employer] Dexter Lite) w/Device kit, Use to test blood sugar 3 times daily, Disp: 1 kit, Rfl: 0 cetirizine (ZyrTEC) 10 MG tablet, Take 1 tablet (10 mg) by mouth Once per day., Disp: 30 tablet, Rfl: 11 cholecalciferol (Vitamin D-3) 50 MCG (2000 UT) tablet, TAKE 1 TABLET BY MOUTH EVERY DAY, Disp: 90 tablet, Rfl: 3 citalopram (CeleXA) 20 MG tablet, TAKE 1 TABLET BY MOUTH EVERY DAY, Disp: 30 tablet, Rfl: 5 Continuous Glucose Clock Repairer (FreeStyle Genevieve 2 [place]) device, Scan sensor every 8 hours, Disp: 1 each, Rfl: 0 Continuous Glucose Sensor (FreeStyle Genevieve 2 Sensor) [facility], USE DIRECTED, CHANGE EVERY 14 DAYS, Disp: 2 each, Rfl: 11 Diclofenac Sodium 1 % gel, APPLY 2 GRAMS TO AFFECTED AREA(S) TWICE DAILY, Disp: 100 g, Rfl: 11 docusate sodium (Colace) 100 MG capsule, TAKE 1 CAPSULE BY MOUTH TWICE DAILY NEEDED, Disp: 180 capsule, Rfl: 3 fluticasone (Flonase) 50 MCG/ACT nasal spray, Administer 2 sprays into each nostril Once per day., Disp: 16 g, Rfl: 11 gabapentin (Neurontin) 300 MG capsule, [...] NOT RESPOND., Disp: 2 each, Rfl: 1 glucose blood (FREESTYLE LITE) test strip, Check BS 3 times a day, Disp: 200 strip, Rfl: 11 HealthyLax 17 g packet, Mix 1 packet [...] AT BEDTIME, Disp: 60 tablet, Rfl: 3 naloxone (Narcan) 4 mg/0.1 mL nasal spray, Administer 1 spray (4 mg) into affected nostril(s) if needed each day for opioid reversal., Disp: 2 each, Rfl: 2 naproxen (Naprosyn) 500 MG tablet, TAKE 1 [...] tablet, Rfl: 3 TRUEplus Lancets 33G misc, Check BS 3 times a day, Disp: 100 each, Rfl: 11 Trulicity 1.5 MG/0.5ML solution auto-injector, INJECT ONE PEN (=1.5MG) SUBCUTANEOUSLY ONCE A WEEK DIRECTED, Disp: 2 mL, Rfl: 3 documented in this encounter Plan of Treatment Upcoming Encounters Date Type Department Care Team (Late st Contact Info) Description 11/17/2025 9:00 AM EST Medication Management [address] [address] Eva Gould, PharmD [address] [place] [phone] 11/19/2025 11:00 AM EST Office Visit [address] [address] Nahomy Patino DO [address] [place] [phone] 11/24/2025 8:30 AM EST Clinical Support [facility] MEDICINE [address] [place] [address] Farnaz Miguel, JULIA Scheduled Orders Name Type Priority Associated Diagnoses Orde r Schedule Drug Monitoring, Cocaine Metabolite, Quantitative, Urine Lab Routine Long-term current use of opiate analgesic Ordered: 10/18/2025 documented as of this encounter Goals Goal Patient Goal Type Associated Problems Recent Progress Patient-Stated? Author Help patients manage their type 2 diabetes Care Plan Help patients manage their type 2 diabetes No Farnaz Miguel RN Weekly blood pressure task Care Plan Weekly blood pressure task No Farnaz Miguel RN Help patients manage their type 2 diabetes Care Plan Help patients manage their type 2 diabetes No Farnaz Miguel, JULIA Patient has chronic kidney disease Care Plan Patient has chronic kidney disease No Farnaz Miguel RN Weekly blood pressure task Care Plan Weekly blood pressure task No Farnaz Miguel RN Patient has chronic kidney disease Care Plan Patient has chronic kidney disease No Farnaz Miguel RN Weekly blood pressure task Care Plan Weekly blood pressure task No Farnaz Miguel RN Weekly blood pressure task Care Plan Weekly blood pressure task No Farnaz Miguel RN Patient has chronic kidney disease Care Plan Patient has chronic kidney disease No Farnaz Miguel RN Patient has chronic kidney disease Care Plan Patient has chronic kidney disease No Farnaz Miguel RN Weekly blood pressure task Care Plan Weekly blood pressure task No Andrea Ott Weekly blood pressure task Care Plan Weekly blood pressure task No Andrea Ott Patient has chronic kidney disease Care Plan Patient has chronic kidney disease No Andrea Ott Patient has chronic kidney disease Care Plan Patient has chronic kidney disease No Andrea Ott Weekly blood pressure task Care Plan Weekly blood pressure task No Fiordaliza Galvez MA Weekly blood pressure task Care Plan Weekly blood pressure task No Fiordaliza Galvez MA Patient has chronic kidney disease Care Plan Patient has chronic kidney disease No Fiordaliza Gavlez MA Patient has chronic kidney disease Care Plan Patient has chronic kidney disease No Fiordaliza Galvez MA Weekly blood pressure task Care Plan Weekly blood pressure task No Lise Worrell Weekly blood pressure task Care Plan Weekly blood pressure task No Lise Worrell Patient has chronic kidney disease Care Plan Patient has chronic kidney disease No Colon Lise Puri Patient has chronic kidney disease Care Plan Patient has chronic kidney disease No Colon Puri Lise Weekly blood pressure task Care Plan Weekly blood pressure task No Colon Lise Puri Weekly blood pressure task Care Plan Weekly blood pressure task No Colon Lise Puri Patient has chronic kidney disease Care Plan Patient has chronic kidney disease No Colon Jaxson Lise Patient has chronic kidney disease Care Plan Patient has chronic kidney disease No Colon Jaxson Lise Weekly blood pressure task Care Plan Weekly blood pressure task No Farnaz Miguel RN Weekly blood pressure task Care Plan Weekly blood pressure task No Farnaz Miguel RN Patient has chronic kidney disease Care Plan Patient has chronic kidney disease No Farnaz Miguel RN Patient has chronic kidney disease Care Plan Patient has chronic kidney disease No Farnaz Miguel RN Weekly blood pressure task Care Plan Weekly blood pressure task No Farnaz Miguel RN Weekly blood pressure task Care Plan Weekly blood pressure task No Farnaz Miguel RN Patient has chronic kidney disease Care Plan Patient has chronic kidney disease No Farnaz Miguel RN Patient has chronic kidney disease Care Plan Patient has chronic kidney disease No Farnaz Miguel RN documented as of this encounter Procedures Procedure Name Priority Date/Time Associated Diagnosis Comments POCT CHARLY-14 URINE DRUG SCREEN Routine 10/18/2025 2:08 PM EST Long-term current use of opiate analgesic documented in this encounter Results * (ABNORMAL) POCT CHARLY-14 Urine Drug Screen (10/18/2025 2:08 PM EST) Pathologist [facility] Amphetamine Screen, Urine Negative Negative Barbiturate Screen, Urine Negative Negative Buprenophine Screen, Urine Negative Negative Benzodiazepines Screen, Urine Negative Negative Cocaine Screen, Urine Positive(A) Negative Fentanyl, Urine Negative Negative MDMA Urine Negative Negative ng/mL Methamphetamine Screen Urine Negative Negative Opiate Screen, Urine Negative Negative Methadone Screen, Urine Negative Negative Oxycodone Screen, Urine Negative Negative Phencyclidine (PCP), Urine Negative Negative TCA, Urine Negative Negative THC Positive(A) Negative Urine Urine specimen obtained by clean catch procedure / Unknown 10/18/2025 2:08 PM EST Farnaz Hill, JULIA - 10/18/2025 2:08 PM EST UTOX cup Lot#[id number] Exp. 09/27/26 Internal Pass Control Nahomy Patino DO POINT OF CARE TEST ENTER/SAUMYA T ORDERABLES Final Result documented in this encounter Visit Diagnoses Diagnosis Long-term current use of opiate analgesic- Primary Encounter for long-term (current) use of other medications documented in this encounter Additional Health Concerns Active Problems Noted Date Diagnosed Date Help patients manage their type 2 diabetes 09/14 Weekly blood pressure task 09/14/2025 Help patients manage their type 2 diabetes 09/14 Patient has chronic kidney disease 09/14/2025 Weekly blood pressure task 09/14/2025 Patient has chronic kidney disease 09/14/2025 Weekly blood pressure task 09/15/2025 Weekly blood pressure task 09/15/2025 Patient has chronic kidney disease 09/15/2025 Patient has chronic kidney disease 09/15/2025 Weekly blood pressure task 09/27/2025 Weekly blood pressure task 09/27/2025 Patient has chronic kidney disease 09/27/2025 Patient has chronic kidney disease 09/27/2025 Weekly blood pressure task 09/28/2025 Weekly blood pressure task 09/28/2025 Patient has chronic kidney disease 09/28/2025 Patient has chronic kidney disease 09/28/2025 Weekly blood pressure task 10/15/2025 Weekly blood pressure task 10/15/2025 Patient has chronic kidney disease 10/15/2025 Patient has chronic kidney disease 10/15/2025 Weekly blood pressure task 10/15/2025 Weekly blood pressure task 10/15/2025 Patient has chronic kidney disease 10/15/2025 Patient has chronic kidney disease 10/15/2025 Weekly blood pressure task 10/18/2025 Weekly blood pressure task 10/18/2025 Patient has chronic kidney disease 10/18/2025 Patient has chronic kidney disease 10/18/2025 Weekly blood pressure task 10/18/2025 Weekly blood pressure task 10/18/2025 Patient has chronic kidney disease 10/18/2025 Patient has chronic kidney disease 10/18/2025 Assessment Noted Time PHQ-9 Depression Total Score: 11 025 1:10 PM EDT documented as of this encounter Care Teams Potash Flaker Relationship Specialty Start Date End Date Nahomy Patino DO [address] [place] [address] PCP - General Family Medicine 10/28/18 documented as of this encounter
--- OUTSIDE RECORDS SUMMARY | 2025-10-19 12:40 | XMS_ITS | Encounter Summary ---
Author Organization [employer] Address [address] [facility] 7t [place] [address] Care Team Providers Care It Project Manager Name Role Phone Nahomy Patino Primary Care Provider + [phone] Encounter Details Date Type Department Care Team (Late Contact Info) Description 12/24/2022 Orders Only [facility] MEDICINE [address] [place] [address] [phone] Tete Herring LPN Social History Tobacco Use [...] Department Care Team (Late Contact Info) Description 11/17/2025 9:00 AM EST Medication Management [facility] MEDICINE [address] [place] [address] [phone] Eva Gould, PharmD [address] [place], [place] [phone] 11/19/2025 11:00 AM EST Office Visit [address] [address] Nahomy Patino DO [address] [place] [address] 11/24/2025 8:30 AM EST Clinical Support [address] [address] Farnaz Miguel, JULIA documented as of this encounter Visit Diagnoses Not on filedocumented in this encounter Additional Health Concerns Assessment Noted Time PHQ-9 Depression Total Score: 12 023 12:05 PM EST documented as of this encounter Care Teams It Project Manager Relationship Specialty Start Date End Date Nahomy Patino DO [address] [place] [phone] PCP - General Family Medicine 10/28/18 documented as of this encounter
--- OUTSIDE RECORDS SUMMARY | 2025-10-19 12:40 | XMS_ITS | Encounter Summary ---
Author Organization [employer] Address [address] [facility] 7t [place] [address] Care Team Providers Care Personal Finance Instructor Name Role Phone Nahomy Patino DO Primary Care Provider + [phone] Reason for Visit * Reason Onset Date Comments Appointment Request 08/26/2024 Encounter Details Date Type Department Care Team ([facility] st Contact Info) Description 08/26/2024 Telephone [facility] MEDICINE [address] [place], [place] [phone] Nahomy Patino DO [address] [place], [place] [phone] Appointment Request Social History Tobacco Use Types [...] EDT Return TC to patient, pt cancelled DOCUMENT CONTROL SUPERVISOR RV appt 09/14/24, states she's traveling to [place] today and wont be back until after Thanksgiving. DOCUMENT CONTROL SUPERVISOR RV rescheduled for 09/28/24 @ 10:30am * Telephone Encounter - Akiko Ocampo - 08/26/2024 10:08 AM EDT Tc from pt called in to cancel 09/14/24 appt. States is on vacation and does not return after thanksgi. documented in this encounter Plan of Treatment Upcoming Encounters Date Type Department Care Team (Late st Contact Info) Description 11/17/2025 9:00 AM EST Medication Management [facility] MEDICINE [address] [place] [phone] Eva Gould, Farshad [address] [place] [address] 11/19/2025 11:00 AM EST Office Visit [facility] MEDICINE [address] [place] [address] Nahomy Patino DO [address] [place] [address] 11/24/2025 8:30 AM EST Clinical Support [facility] MEDICINE [address] [place] [address] Farnaz Miguel, JULIA documented as of this encounter Visit Diagnoses Not on filedocumented in this encounter Additional Health Concerns Assessment Noted Time PHQ-9 Depression Total Score: 0 10/08/20 23 9:07 AM EST documented as of this encounter Care Teams Personal Finance Instructor Relationship Specialty Start Date End Date N[place] [address] PCP - General Family Medicine 10/28/18 documented as of this encounter
--- OUTSIDE RECORDS SUMMARY | 2025-10-19 12:40 | XMS_ITS | Encounter Summary ---
Author Organization [employer] Address [address] [place] [address] 7t [place] [address] Care Team Providers Care Deputy Sheriff Generalist/Bailiff Name Role Phone Nahomy Patino Primary Care Provider + [phone] Encounter Details Date Type Department Care Team (Late Contact Info) Description 11/30/2022 Orders Only [facility] MEDICINE [address] [place] [phone] Mackenzie Webb, RN Social History Tobacco Use [...] Description 11/17/2025 9:00 AM EST Medication Management [facility] MEDICINE [address] [place] [address] [phone] Eva Gould, PharmD [address] [place], [place] [phone] 11/19/2025 11:00 AM EST Office Visit [facility] [place] [address] Nahomy Patino DO [facility] [place] [address] 11/24/2025 8:30 AM EST Clinical Support [facility] [place] [address] Farnaz Miguel RN documented as of this encounter Procedures Procedure Name Priority Date/Time Associated Diagnosis Comments US PELVIS TRANSVAGINAL Routine 12/04/2022 1:20 PM EST documented in this encounter Results * US Pelvis Transvaginal (12/04/2022 1:20 PM EST) Anatomical Region Laterality Modality Pelvis Ultrasound 12/04/2022 1:20 PM EST Narrative 12/05/2022 6:26 PM EST [facility] [address] [place] [address] [place] [address] Ultrasound Report Signed Patient: Michelle Driscoll MR#: [id number] : 1965 Acct:[id number] Age/Sex: 57 / F ADM Date: 12/04/22 Loc: HO.HMGCX Attending Dr: Nahomy Patino DO Ordering Physician: Nahomy Patino DO Date of Service: 12/04/22 Procedure(s): US pelvic and transvaginal Accession Number(s): [id number] cc: Nahomy Patino DO EXAMINATION: US PELVIS [...] in OV> 12/05/22 1823 DD/ 1320 TD/TT: Decatizer: BELLA Procedure Note Donotuseinterpreter, Image - 12/05/2022 [facility] [place] [address] Ultrasound Report Signed Patient: Corinne Driscoll#: [id number] : 1965Acct:[id number] Age/Sex: 57 / FADM Date: 12/04/22 Loc: HO.HMGCX Attending Dr: Nahomy Patino DO Ordering Physician: Nahomy Patino DO Date of Service: 12/04/22 Procedure(s): US pelvic and transvaginal Accession Number(s): [id number] cc: Nahomy Patino DO EXAMINATION: US PELVIS [...] in OV> 12/05/22 1823 DD/ 1320 TD/TT: Decatizer: BELLA [facility] External Provider IMG US PROCEDURES Final Result documented in this encounter Visit Diagnoses Not on filedocumented in this encounter Additional Health Concerns Assessment Noted Time PHQ-9 Depression Total Score: 12 023 12:05 PM EST documented as of this encounter Care Teams Deputy Sheriff Generalist/Bailiff Relationship Specialty Start Date End Date Nahomy Patino DO [address] [place] [address] PCP - General Family Medicine 10/28/18 documented as of this encounter
--- OUTSIDE RECORDS SUMMARY | 2025-10-19 12:40 | XMS_ITS | Encounter Summary ---
Author Organization [employer] Address [address] [facility] 7t [place] [address] Care Team Providers Care Aircraft Dispatcher Name Role Phone Nahomy Patino DO Primary Care Provider + [phone] Encounter Details Date Type Department Care Team (Latest Contact Info) Description 09/26/2020 Abstract [facility] CONVERSIONS Dental, Provider, DDS Social History [...] Description 11/17/2025 9:00 AM EST Medication Management [address] [address] Eva Gould, PharmD [address] [place] [address] 11/19/2025 11:00 AM EST Office Visit [address] [address] Nahomy Patino DO [address] [place] [address] 11/24/2025 8:30 AM EST Clinical Support [address] [address] Farnaz Miguel RN documented as of this encounter Visit Diagnoses Not on filedocumented in this encounter Care Teams Aircraft Dispatcher Relationship Specialty Start Date End Date Nahomy Patino DO [address] [place] [phone] PCP - General Family Medicine 10/28/18 documented as of this encounter
--- OUTSIDE RECORDS SUMMARY | 2025-10-19 12:40 | XMS_ITS | Encounter Summary ---
Author Organization [employer] Address [address] [facility] 7t [place] [address] Care Team Providers Care Poundmaster Name Role Phone Nahomy Patino DO Primary Care Provider + [phone] Reason for Visit * Reason Onset Date Comments Reschedule 05/22/2024 Encounter Details Date Type Department Care Team ([facility] st Contact Info) Description 05/22/2024 Telephone [facility] MEDICINE [address] [place], [place] [phone] Nahomy Patino DO [address] [place], [place] [phone] Reschedule Social History Tobacco Use Types Packs/Day [...] Description 11/17/2025 9:00 AM EST Medication Management [address] [address] Eva Gould, JoannaD [address] [place] [address] 11/19/2025 11:00 AM EST Office Visit [address] [address] Nahomy Patino DO [address] [place] [address] 11/24/2025 8:30 AM EST Clinical Support [address] [address] Farnaz Miguel RN documented as of this encounter Visit Diagnoses Not on filedocumented in this encounter Additional Health Concerns Assessment Noted Time PHQ-9 Depression Total Score: 0 10/08/20 9:07 AM EST documented as of this encounter Care Teams Poundmaster Relationship Specialty Start Date End Date Nahomy Patino DO [address] [place] [address] PCP - General Family Medicine 10/28/18 documented as of this encounter
--- OUTSIDE RECORDS SUMMARY | 2025-10-19 12:41 | XMS_ITS | Encounter Summary ---
Author Organization [employer] Address [address] [facility] 7t [place] [address] Care Team Providers Care Gear Keeper Name Role Phone Nahomy Patino DO Primary Care Provider + [phone] Reason for Visit * Reason Onset Date Comments Appointment Request 10/15/2025 Encounter Details Date Type Department Care Team ([facility] st Contact Info) Description 10/15/2025 Telephone [facility] [address] [place], [place] [phone] Nahomy Patino DO [address] [place], [place] [phone] Appointment Request Social History Tobacco Use Types [...] Telephone Encounter - Farnaz Miguel RN - 10/15/2025 9:17 AM EST See other encounter from today * Telephone Encounter - Lise Puri - 10/15/2025 8:52 AM EST Tc from pt requesting to reschedule appointment from 10/09 Contact pt at [phone] documented in this encounter Plan of Treatment Upcoming Encounters Date Type Department Care Team ([facility] st Contact Info) Description 11/17/2025 9:00 AM EST Medication Management [facility] [address] [place] [phone] Eva Gould, PharmD [address] [place] [address] 11/19/2025 11:00 AM EST Office Visit [facility] [address] [place] [phone] Nahomy Patino DO [address] [place] [address] 11/24/2025 8:30 AM EST Clinical Support [facility] [address] [place] [address] Farnaz Miguel RN documented as of this encounter Goals Goal [...] type 2 diabetes No Farnaz Miguel RN Patient has chronic [...] chronic kidney disease No Fiordaliza Galvez [place] Patient has chronic kidney disease Care Plan Patient has chronic kidney disease No Fiordaliza Galvez [place] Weekly blood pressure task Care Plan Weekly blood pressure task No Lise Worrell Weekly blood pressure task Care Plan Weekly blood pressure task No Colon Lise Puri Patient has chronic kidney disease Care Plan Patient has chronic kidney disease No Lise Worrell Patient has chronic kidney disease Care Plan Patient has chronic kidney disease No Colon Kiana Purila Weekly blood pressure task Care Plan Weekly blood pressure task No Colon Jaxson Lise Weekly blood pressure task Care Plan Weekly blood pressure task No Colon Jaxson Lise Patient has chronic kidney disease Care Plan Patient has chronic kidney disease No Colon Jaxson Lise Patient has chronic kidney disease Care Plan Patient has chronic kidney disease No Colon Kiana Purila documented as of this encounter Visit Diagnoses Not on filedocumented in this encounter Additional Health Concerns Active [...] 10/15/2025 Patient has chronic kidney disease 10/15/2025 Assessment Noted Time PHQ-9 Depression Total Score: 11 025 1:10 PM EDT documented as of this encounter Care Teams Gear Keeper Relationship Specialty Start Date End Date Nahomy Patino DO [address] [place] [id number] PCP - General Family Medicine 10/28/18 documented as of this encounter
--- OUTSIDE RECORDS SUMMARY | 2025-10-19 12:41 | XMS_ITS | Encounter Summary ---
Author Organization [employer] Address 75 [facility] 7t [place] [address] Care Team Providers Care Apartment Maintenance Technician Name Role Phone Nahomy Patino DO Primary Care Provider + [phone] Reason for Visit * Reason Comments Med Refill Encounter Details Date Type Department Care Team (Late st Contact Info) Description 08/23/2023 Refill [facility] [address] [place], [place] [phone] Nahomy Patino DO [address] [place], [place] [phone] Other chronic pain Social History Tobacco Use [...] Description 11/17/2025 9:00 AM EST Medication Management [address] [address] Eva Gould PharmD [address] [place] [phone] 11/19/2025 11:00 AM EST Office Visit [address] [address] Nahomy Patino DO [address] [place] [address] 11/24/2025 8:30 AM EST Clinical Support [address] [address] Farnaz Miguel, JULIA documented as of this encounter Visit Diagnoses Diagnosis Other chronic pain documented in this encounter Additional Health Concerns Assessment Noted Time PHQ-9 Depression Total Score: 12 023 12:05 PM EST documented as of this encounter Care Teams Apartment Maintenance Technician Relationship Specialty Start Date End Date Nahomy Patino DO [address] [place] [phone] PCP - General Family Medicine 10/28/18 documented as of this encounter
--- OUTSIDE RECORDS SUMMARY | 2025-10-19 12:41 | XMS_ITS | Encounter Summary ---
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 She is again rescheduled for her surgery11/02/25. She c/o increased stomach pain and said her anxiety is through the roof with these cancellations. Scheduled for TRANSFORMER INSPECTOR RV 10/18/25 @ 1:30pm. * Telephone Encounter - Lise Puri - 10/15/2025 8:51 AM EST TC from pt requesting medication refill. Medications needing refill : - oxyCODONE-acetaminophen (Percocet) 5-325 MG tablet To be sent to: - [facility] - [place], [place] - [address] documented in this encounter Plan of Treatment Upcoming Encounters Date Type Department Care Team (Late st Contact Info) Description 11/17/2025 9:00 AM EST Medication Management [facility] [address] [place] [address] Eva Gould, Farshad [address] [place] [address] 11/19/2025 11:00 AM EST Office Visit [address] [address] Nahomy Patino DO [address] [place] [address] 11/24/2025 8:30 AM EST Clinical Support [address] [phone] Farnaz Miguel RN documented as of this [...] Plan Weekly blood pressure task No Colon Jaxson, Lise Weekly blood pressure task Care Plan Weekly blood pressure task No Colon Jaxson Lise Patient has chronic kidney disease Care Plan Patient has chronic kidney disease No Colon Jaxson Lise Patient has chronic kidney disease Care Plan Patient has chronic kidney disease No Colon Jaxson Lise documented as of this encounter Visit Diagnoses Diagnosis Chronic bilateral low back pain, unspecified whether sciatica present documented in this [...] Noted Time PHQ-9 Depression Total Score: 11 04/19/ 025 1:10 PM EDT documented as of this encounter Care Teams Multiple Effect Evaporator Operator Relationship Specialty Start Date End Date Nahomy Patino DO [address] [place] [id number] PCP - General Family Medicine 10/28/18 documented as of this encounter
--- OUTSIDE RECORDS SUMMARY | 2025-10-19 12:41 | XMS_ITS | Encounter Summary ---
Author Organization [employer] Address 75 [facility] 7t [place] [address] Care Team Providers Care Lab Specialist Name Role Phone Nahomy Patino Primary Care Provider [phone] Encounter Details Date Type Department Care Team (Latest Contact Info) Description 10/15/2025 Travel Social History Tobacco Use Types Packs/Day [...] Description 11/17/2025 9:00 AM EST Medication Management [address] [address] Eva Gould, JoannaD [address] [place] [address] 11/19/2025 11:00 AM EST Office Visit [address] [address] Nahomy Patino DO [address] [place] [address] 11/24/2025 8:30 AM EST Clinical Support [address] [address] Farnaz Miguel RN documented as of this [...] Care Plan Weekly blood pressure task No SanterlindauiAndrea chery Weekly blood pressure task Care Plan Weekly blood pressure task No SantAndrea magaña Patient has chronic kidney disease Care Plan [...] documented as of this encounter Care Teams Lab Specialist Relationship Specialty Start Date End Date Nahomy Patino DO [address] [place] [phone] PCP - General Family Medicine 10/28/18 documented as of this encounter
--- OUTSIDE RECORDS SUMMARY | 2025-10-19 12:41 | XMS_ITS | Encounter Summary ---
Author Organization [employer] Address [address] [facility] 7t [place] [address] Care Team Providers Care Set Painter Name Role Phone JustinaNahomy santiago Primary Care Provider + [phone] Reason for Visit * Reason Onset Date Comments Abnormal UTOX 10/18/2025 Encounter Details Date Type Department Care Team ([facility] st Contact Info) Description 10/18/2025 Telephone [facility] [address] [place], [place] [phone] Farnaz Miguel RN Abnormal UTOX Social History Tobacco Use Types Packs/Day Years [...] Telephone Encounter - Farnaz Miguel RN - 10/18/2025 2:27 PM EST Pt had LINE REPAIRER RV appointment today UTOX was Pos ADRIANA, sent out for confirmation Pt met with today, increased depression, c/o wanting to be . Denies any plan to harm herself. documented in this encounter Plan of Treatment Upcoming Encounters Date Type Department Care Team (Late st Contact Info) Description 11/17/2025 9:00 AM EST Medication Management [address] [address] Eva Gould, PharmD [address] [place] [address] 11/19/2025 11:00 AM EST Office Visit [address] [address] Nahomy Patino DO [address] [place] [address] 11/24/2025 8:30 AM EST Clinical Support [address] [address] Farnaz Miguel, JULIA documented as of this encounter Goals Goal Patient Goal Type Associated Problems Recent Progress Patient-Stated? Author Help patients manage their type 2 diabetes Care Plan Help patients manage their type 2 diabetes No Farnaz Miguel RN Weekly blood pressure task Care Plan Weekly blood pressure task No Farnaz Miguel, JULIA Help patients manage their type 2 diabetes Care Plan Help patients manage their type 2 diabetes No Farnaz Miguel RN Patient has chronic kidney disease Care Plan Patient has chronic kidney disease No Farnaz Miguel RN Weekly blood pressure task Care Plan Weekly blood pressure task No Farnaz Miguel, JULIA Patient has chronic [...] chronic kidney disease No Colon Lise Puri Weekly blood pressure task Care Plan Weekly blood pressure task No Colon Lise Puri Weekly blood pressure task Care Plan Weekly blood pressure task No Colon Lise Puri Patient has chronic kidney disease Care Plan Patient has chronic kidney disease No Colon Anurag Puriishla Patient has chronic kidney disease Care Plan Patient has chronic kidney disease No Lise Worrell Weekly blood pressure task [...] documented as of this encounter Care Teams Set Painter Relationship Specialty Start Date End Date Nahomy Patino DO [address] [place] [phone] PCP - General Family Medicine 10/28/18 documented as of this encounter
--- OUTSIDE RECORDS SUMMARY | 2025-10-19 12:41 | XMS_ITS | Encounter Summary ---
Author Organization [employer] Address [address] [facility] 7t [place] [address] Care Team Providers Care Md Senior Research Scientist Name Role Phone Nahomy Patino DO Primary Care Provider + [phone] Reason for Visit * Reason Comments Med Refill Encounter Details Date Type Department Care Team (Late st Contact Info) Description 11/15/2023 Refill [facility] [address] [place], [place] [phone] Nahomy Patino DO [address] [place], [place] [phone] Chronic low back pain, unspecified back pain [...] Description 11/17/2025 9:00 AM EST Medication Management [address] [address] Eva Gould PharmD [address] [place] [address] 11/19/2025 11:00 AM EST Office Visit [address] [address] Nahomy Patino DO [address] [place] [address] 11/24/2025 8:30 AM EST Clinical Support [address] [address] Farnaz Miugel, JULIA documented as of this encounter Visit Diagnoses Diagnosis Chronic low back pain, unspecified back pain laterality, unspecified whether sciatica present documented in this encounter Additional Health Concerns Assessment Noted Time PHQ-9 Depression Total Score: 0 10/08/20 9:07 AM EST documented as of this encounter Care Teams Md Senior Research Scientist Relationship Specialty Start Date End Date Nahomy Patino DO [address] [place] [phone] PCP - General Family Medicine 10/28/18 documented as of this encounter
--- OUTSIDE RECORDS SUMMARY | 2025-10-19 12:41 | XMS_ITS | Clinical Summary ---
Author Organization [employer] Address [address] [place] [address] Care Team Providers Care Welder First Class Name Role Phone JustinaNahomy santiago Primary Care Provider + [phone] Allergies No known active allergies Medications polyvinyl [...] TWICE DAILY 100 g Active Continuous Glucose Elephant Tamer (FreeStyle Genevieve 2 [place]) device Scan sensor every 8 hours 1 [...] complication, with long-term current use of insulin ([facility]),Other hyperlipidemia Take 1 tablet (81 [...] DOES NOT RESPOND. 2 each 1 Active Continuous Glucose Sensor (FreeStyle Genevieve 2 Sensor) [facility] USE DIRECTED, CHANGE EVERY 14 DAYS 2 each Active polyethylene glycol, PEG, 3350 (MiraLax) 17 GM/SCOOP powderIndication s:Constipation, unspecified constipation type 17 grams in 8-12 oz fluid like water at bedtime prn constipation 527 g 2 Active senna (Senokot) 8.6 MG tabletIndication s:Constipation, unspecified constipation type Take 1 tablet (8.6 mg) by mouth at bedtime. 60 tablet 2 025 2025 Active acetaminophen (Tylenol 8 Hour) 650 MG ER tablet TAKE 1 TABLET BY MOUTH EVERY 8 HOURS NEEDED FOR MILD PAIN. DO NOT BREAK, CRUSH, DISSOLVE OR CHEW 40 tablet 1 10/19/20 9:31 AM EST Active naproxen (Naprosyn) 500 MG tablet TAKE 1 TABLET BY MOUTH TWICE DAILY NEEDED FOR MILD PAIN 30 tablet 1 10/19/20 9:31 AM EST Active tiZANidine (Zanaflex) 2 MG tablet TAKE 1 TABLET BY MOUTH EVERY 8 HOURS NEEDED FOR MUSCLE SPASMS 60 tablet 3 10/19/20 9:31 AM EST Active gabapentin (Neurontin) 300 MG capsule TAKE 1 CAPSULE BY MOUTH TWICE DAILY 60 capsule 3 10/19/20 25 9:31 AM EST Active lidocaine (Lidoderm) 5 % patch APPLY 2 PATCHES TOPICALLY TO SKIN, LEAVE ON FOR 12 HOURS AND OFF FOR 12 HOURS DIRECTED 60 patch 3 10/19/20 9:31 AM EST Active citalopram (CeleXA) 20 MG tabletIndication s:Depression, unspecified depression type TAKE 1 TABLET BY MOUTH EVERY DAY 30 tablet 5 Active glucose blood (FREESTYLE LITE) test strip Check BS 3 times a day 200 strip 11 Active TRUEplus Lancets 33G misc Check BS 3 times a day 100 each 10/19/20 25 9:31 AM EST Active Alcohol Swabs (Alcohol Prep) 70 % pads Check BS 3 times a day 100 each 10/19/20 25 9:31 AM EST Active Blood Glucose Monitoring Suppl (FreeStyle Rocky [place] Lite) w/Device kit Use to test blood sugar 3 times daily 1 kit Active Trulicity 1.5 MG/0.5ML solution auto-injector INJECT ONE PEN (=1.5MG) SUBCUTANEOUSLY ONCE A WEEK DIRECTED 2 mL 3 10/19/20 25 9:31 AM EST Active oxyCODONE-acetam inophen (Percocet) 5-325 MG tabletIndication s:Chronic bilateral low back pain, unspecified whether sciatica present Take 1 tablet by mouth every 6 (six) hours if needed for severe pain for up to 7 days. 28 tablet 10/19/20 25 9:31 AM EST 2024 Active Dulaglutide (Trulicity) 1.5 MG/0.5ML solution auto-injector Inject 1.5 mg under the skin 1 (one) time per week. 2 mL 3 025 2024 Discontinued oxyCODONE-acetam inophen (Percocet) 5-325 MG tabletIndication s:Chronic bilateral low back pain, unspecified whether sciatica present TAKE 1 TABLET BY MOUTH EVERY 6 HOURS NEEDED FOR SEVERE PAIN 112 tablet 025 2024 Discontinued(R eorder (will not trigger notification to Pharmacy)) Active Problems Problem Noted Date Diagnosed Date Long-term current use of opiate analgesic 2024 Tobacco dependence 12/30/2023 Degenerative disc disease, lumbar 11/28/2022 Thickened endometrium 11/28/2022 Assessment & Plan (11/28/2022 12:35 PM EST): Seen on L-spine MRI -advised schedule pelvic US -keep eval w/ CABLE ARMORER OPERATOR next week as scheduled Healthcare maintenance 11/28/2022 [...] daily -s/p optho eval Sep 2020 at [facility]->advised reschedule eval -foot exam next visit Chronic bilateral low back pain 08/19/2015 Assessment & Plan (11/28/2022 12:37 PM EST): With persistent severe pain -L-spine MRI w/ [id number] multilevel degenerative spondyloarthropathy (similar to 2020) DEC [...] sensation Essential hypertension 08/19/2015 BMI 40.0-44.9, adult (CMS/HCC) 08/19/2015 Obstructive sleep apnea 08/19/2015 Assessment & [...] Encounters Date Type Department Care Team Description 10/18/2025 1:30 PM EST Clinical Support [facility] [place] [address] Farnaz Miguel RN Long-term current use of opiate analgesic (Primary Dx) 10/18/2025 Telephone [facility] [place] [address] Farnaz Miguel RN Abnormal UTOX 10/18/2025 Travel 10/15/2025 Telephone [facility] [place] [address] Nahomy Patino DO Appointment Request 10/15/2025 Refill [facility] [place] [address] Nahomy Patino DO Chronic bilateral low back pain, unspecified whether sciatica present 10/15/2025 Travel 09/28/2025 Telephone [facility] [place] [address] Nahomy Patino DO Recall Appointment 09/27/2025 Telephone [facility] [place] [address] Nahomy Patino DO fyi 09/24/2025 Refill [facility] [place] [address] Nahomy Patino DO 09/14/2025 Telephone [facility] [place] [address] Farnaz Miguel RN 09/02/2025 Refill [facility] [place] [address] Ruby Garcia MD Chronic bilateral low back pain, unspecified whether sciatica present 08/31/2025 Orders Only GENERIC EXTERNAL DATA DEPARTMENT Provider, Generic External Data 08/30/2025 9:30 AM EST Clinical Support [facility] [place] [address] Farnaz Miguel, RN Long-term current use of opiate analgesic (Primary Dx) 08/30/2025 Orders Only [facility] [place] [address] Nahomy Patino, 08/30/2025 Telephone [facility] [address] [place] [address] Nahomy Patino, Care Coordination 08/30/2025 Telephone [facility] [place] [address] Farnaz Miguel, JULIA SHOW DOG TRAINER Agreement renewed today 08/30/2025 Travel 08/25/2025 Refill [facility] [place] [address] Nahomy Patino DO Depression, unspecified depression type 08/19/2025 Telephone [facility] [place] [address] Farnaz Miguel, JULIA Status Check 08/15/2025 Refill [facility] [address] [facility] [place] [address] Nahomy Patino, 08/10/2025 Refill [facility] [place] [address] Nahomy Patino, 08/08/2025 Refill [facility] [address] [facility] [place] [address] Nahomy Patino, 08/03/2025 9:30 AM EDT Telemedicine [facility] [place] [address] Farnaz Miguel, RN Long-term current use of opiate analgesic 08/03/2025 Refill [facility] [place] [address] Farnaz Miguel, heel cover softener bilateral low back pain, unspecified whether sciatica present (Primary Dx) 08/03/2025 Travel from Last 3 Months Immunizations Immunization Administration [...] Description 11/17/2025 9:00 AM EST Medication Management [facility] [address] [place] [phone] Eva Gould, PharmD [address] [place] [address] 11/19/2025 11:00 AM EST Office Visit [facility] [address] [place] [address] Nahomy Patino DO [address] [place] [address] 11/24/2025 8:30 AM EST Clinical Support [address] [address] Farnaz Miguel, RN Health Maintenance Due Date Last Done Comments CT Colonography 1965 Colonoscopy 1965 Colorectal Cancer Screening 1965 FIT DNA/Cologuard 1963 FIT 1963 FOBT 1965 Sigmoidoscopy 1963 Diabetes: Foot Exam 1973 Alcohol/Substance Use Screening 1975 Pap Smear 01/31/1984 RSV Patients and Patients Aged 60 years or older (1 - Risk 50-74 years 1-dose series) 2013 Cervical Cancer Screening 08/22/2023 HPV/Cotest 08/22/2023 08/22/2018 COVID-19 Vaccine ( season) 2025 09/30/2024, 04/24/2024, 11/28/2022, Additional history exists Influenza Vaccine (#1) 2025 , 10/08/2023, 11/28/2022, Additional history exists Diabetes: Urine Protein Screening 07/15/2025 07/15/2024, 07/15/2024, 06/21/2021, Additional history exists Lipid Panel 07/15/2025 07/15/2024, 06/21/2021 Diabetes: Hemoglobin A1C 07/20/2025 025, 09/30/2024, 07/15/2024, Additional history exists Depression Monitoring 10/19/2025 04/19/2025, 025 Disability Screening 04/19/2026 04/19/2025 SDOH Screening 04/19/2026 04/19/2025 Mammogram 06/10/2026 06/10/2024, 032 02/2022, 07/17/2019 Tobacco Screening 06/17/2026 06/17/2025 Eye Exam 05/28/2027 05/28/2025, 08/0 10/2024, 05/28/2025, Additional history exists DTaP/Tdap/Td Vaccines (3 - Td or Tdap) 04/19/2035 04/19/2025, 05/03/2015 Hepatitis B Vaccines Completed 01/01/2020, 12/24/2016, 01/21/2009 Pneumococcal Vaccine: 50+ Years Completed 04/24/2024, 09/04/2016 Zoster Vaccines Completed 06/15/2024, 04/23/2023 HIV Screening Completed 07/15/2024, 05/29, 11/17/2019 Hepatitis C Screening Completed 07/15/2024 , 06/21/2021, 11/17/2019 HIB Vaccines Aged Out No longer eligi [...] on patient's age to complete this topic Goals Goal Patient Goal Type Associated Problems [...] Care Plan Patient has chronic kidney disease Farnaz Sánchez RN Weekly blood pressure task Care Plan [...] Plan Weekly blood pressure task No Colon Puri, Lise Weekly blood pressure task Care Plan Weekly blood pressure task No Colon Puri, Lise Patient has chronic kidney disease Care Plan Patient has chronic kidney disease No Colon Puri, Lise Patient has chronic kidney disease Care Plan Patient has chronic kidney disease No Colon Puri, Lise Weekly blood pressure task Care Plan Weekly blood pressure task No Colon Puri, Lise Weekly blood pressure task Care Plan Weekly blood pressure task No Colon Puri, Lise Patient has chronic kidney disease Care Plan Patient has chronic kidney disease No Colon Puri, Lise Patient has chronic kidney disease Care Plan Patient has chronic kidney disease No Colon Puri, Lise Weekly blood pressure task Care Plan [...] chronic kidney disease No Farnaz Miguel RN Procedures Procedure Name Priority Date/Time Associated Diagnosis Comments POCT CHARLY-14 URINE DRUG SCREEN Routine 10/18/2025 2:08 PM EST Long-term current use of opiate analgesic COMPREHENSIVE METABOLIC PANEL Routine 08/31/2025 4:50 AM EST POCT CHARLY-14 URINE DRUG SCREEN Routine 08/30/2025 [...] Urine Drug Screen (10/18/2025 2:08 PM EST) Only the most recent of2 resultswithin the time period is included. Amphetamine Screen, Urine Negative Negative Barbiturate Screen, [...] / Unknown 10/18/2025 2:08 PM EST Farnaz Hill RN - 10/18/2025 2:08 PM EST UTOX cup Lot#[id number] Exp. 09/27/26 Internal Pass Control Nahomy Patino DO POINT OF CARE TEST ENTER/SAUMYA T ORDERABLES Final Result * (ABNORMAL) Comprehensive Metabolic Panel (08/31/2025 4:50 AM EST) Pathologist [facility] Sodium 139 135 - 145 mmol/L [facility] Potassium 3.7 3.3 - 5.1 mmol/L [facility] Chloride 101 96 - 108 mmol/L [facility] Carbon Dioxide 23 22 - 29 mmol/L [facility] Anion Gap 19 12 - 20 [facility] Urea Nitrogen (BUN) 14 9 - 16 mg/dL [facility] Creatinine, Serum 0.82 0.5 - 1.4 mg/dL [facility] Creatinine Clr Calc Pharmacy 72.9 [facility] Comment:Provided height and weight: 154.94 cm,90.718 kg.eGFR (calculated from the MDRD study equation) and eCrCl(calculated from the Cockcroft-Gault equation) are based ondifferent parameters and may not yield comparable results.If eCrCl result is absurd, please check patient'sheight/weight. Estimated Glomerular Filt Rate >60 [facility] Comment:Chronic Kidney Disea se: Estimated GFR < 60 mL/min/1.09d7Mqfvuu Kidney Disease: Estimated GFR < 15 mL/min/1.73m2 Glucose 253(H) 60 - 115 mg/dL [facility] Calcium 9.4 8.4 - 10.2 mg/dL [facility] Bilirubin, Total 0.5 0.0 - 1.0 mg/dL [facility] Aspartate Amino Transferase 16 5 - 31 U/L [facility] Alanine Aminotransferase 23 0 - 31 U/L [facility] Total Protein 8.3(H) 6.5 - 8.0 g/dL [facility] Albumin Level 4.9 3.5 - 5.0 g/dL [facility] Alkaline Phosphatase 137(H) 39 - 117 U/L [facility] 08/31/2025 4:50 AM EST 08/31/2025 4:53 AM EST us Generic External Data Provider LAB BLOOD ORDERAB LES Final Result [facility] [address] [place] [phone] * (ABNORMAL) POCT HGB A1C (04/19/2025 11:47 AM EDT) Hemoglobin A1C 7.3(A) 4.0 - 6.0 % QC Media Lot # [id number] Lot# Expiration Date Blood 04/19/2025 11:4 7 AM EDT us Nahomy Patino DO POINT OF CARE TEST ENTER/SAUMYA T ORDERABLES Final Result * Hepatitis C Antibody with Reflex to HCV, RNA, Quantitative, Real-Time PCR (07/15/2024 8:29 AM EDT) Hepatitis C Antibody Nonreactive Nonreactive [facility] Comment:Antibodies to HCV no t detected; does not exclude early acuteHCV infection. Blood Venous blood specimen / Unknown 07/15/2024 8:29 AM EDT 07/15/2024 10:46 AM EDT Nahomy Patino DO LAB BLOOD ORDERABLES Final R esult Performing Organization Address City/[facility]/ZIP Co de Phone Number [facility] [address] [place] [address] [phone] * HIV-1/2 Antigen and Antibodies, Fourth Generation, with Reflexes (07/15/2024 8:29 AM EDT) HIV AB/AG Nonreactive Nonreactive [facility] Comment:HIV-1 p24 Ag and/or HIV-1/HIV-2 Ab not detected.A test result that is nonreactive does not exclude thepossibility of exposure to or infection with HIV-1 and/orHIV-2. Nonreactive results in this assay for individualswith prior exposure to HIV-1 and/or HIV-2 may be due toantigen and antibody levels that are below the limit ofdetection of this assay.The [employer] HIV Ag/Ab Combo assay result andsupplemental assay results should be interpreted inconjunction with the patient's clinical presentation,history and other laboratory results. If the results areinconsistent with clinical evidence, additional testing issuggested to confirm the result. Blood Venous blood specimen / Unknown 07/15/2024 8:29 AM EDT 07/15/2024 10:46 AM EDT us Nahomy Patino LAB BLOOD ORDERABLES Final R esult Performing Organization Address City/[facility]/ZIP Co de Phone Number [facility] [address] [place] [address] [phone] * (ABNORMAL) Lipid Panel, Standard (07/15/2024 8:29 AM EDT) Triglycerides 70 <150 mg/dL [facility] Comment:Desirable Triglyceri de: less than 150 mg/dLBorderline High Triglyceride 150-199 mg/dLHigh Triglyceride: 200-499 mg/dLVery High Triglyceride: greater than or equal to 5OO mg/dL Cholesterol 195 <200 mg/dL [facility] Comment:Desirable Cholestero l: less than 200 mg/dLBorderline High Cholesterol: 200-239 mg/dLHigh Cholesterol: greater than 239 mg/dL LDL Cholesterol Calculated 137(H) <100 mg/dL [facility] Comment:Desirable LDL: less than 100 mg/dLNear Optimal/Above Optimal LDL: 110- 129 mg/dLBorderline High LDL: 130-159 mg/dLHigh LDL: 160-189 mg/dLVery High LDL: greater than or equal to 190 mg/dL HDL Cholesterol 44 >40 mg/dL [facility] Comment:Desirable HDL: great er than 40 mg/dL Note: This HDL assay may give artificially low results in patients with liver disease. Blood Venous blood specimen / Unknown 07/15/2024 8:29 AM EDT 07/15/2024 10:46 AM EDT us Nahomy Patino DO LAB BLOOD ORDERABLES Final R esult Performing Organization Address City/[facility] Co de Phone Number [facility] [address] [place], [place] [phone] * Albumin, Random Urine W/Creatinine (07/15/2024 8:25 AM EDT) Creatinine, Urine 91.96 mg/dL [facility] Microalbumin Urine 11.0 mg/L [facility] Microalbum Creatinine Ratio Ur 11.9 <30 ug/mg cr [facility] Comment:Albumin/Creatinine R atio Reference Ranges: Normal: < 30 ug/mg creatinine Microalbuminuria: 30 - 300 ug/mg creatinineClinical Albuminuria: > 300 ug/mg creatinine Urine (Urine, Random) 07/15/2024 8:25 AM EDT 07/15/2024 10:51 AM EDT Nahomy Patino DO LAB URINE ORDERABLES Final R esult [facility] [address] [place] [phone] [phone] * BI Mammogram Screening Tomosynthesis Bilateral (06/10/2024 3:35 PM EDT) Anatomical Region Laterality Modality Breast Bilateral Mammography 06/10/2024 3:35 PM EDT Narrative 07/08/2024 12:56 PM EDT [facility] [address] [place] [address] Mammography Report Signed with Addenda Patient: Michelle Driscoll MR#: [id number] : 1965 Acct:[id number] Age/Sex: 59 / F ADM Date: 06/10/24 Loc: [facility] Attending Dr: Nahomy Patino DO Ordering Physician: Nahomy Patino DO Results: 1N egative Date of Service: 06/10/24 Follow Up: 1 Year From Orig ina Mammogram Procedure(s): MM tomosynthesis screening BI Accession Number(s): [id number] cc: Nahomy Patino DO ADDENDUM ADDENDUM #1 [...] 07/08/24 1253 DD/ 1535 TD/TT: 06/10/24 1550 Ballpoint Pen Cartridge Tester: Procedure Note Donotuseinterpreter, Image - 07/13/2024 [facility] [address] [place] [address] Mammography Report Signed with Addenda Patient: Michelle DriscollMR#: [id number] : 1965Acct:[id number] Age/Sex: 59 / FADM Date: 06/10/24 Loc: ANABELAO Attending Dr: Nahomy Patino DO Ordering Physician: Nahomy Patino DOResults: 1N egative Date of Service: 06/10/24Follow Up: 1 Year From Orig ina Mammogram Procedure(s): MM tomosynthesis screening BI Accession Number(s): [id number] cc: Nahomy Patino DO ADDENDUM ADDENDUM #1 [...] in OV> 07/08/24 1253 DD/ 34 TD/TT: 06/10/241549 Ballpoint Pen Cartridge Tester: us Nahomy Patino DO IMG BI PROCEDURES Edited Res ult - Final * HPV E6/E7 RFLX MATTHEW 16 18/45 (08/22/2018 11:15 AM EDT) ADDITIONAL TESTING Not indicated () [facility] Comment: Test Performed by Celeste Godoy, [facility], [address] [place], [place] Vazquez Whitney M.D., Ph.D., Director of Laboratories , [place] [id number] HPV 16 RNA Test not performed [facility] HPV 18/45 RNA Test not performed [facility] HPV mRNA E6/E7 Not Detected NOT DETECTED [facility] Comment: This test was performed using the APTIMA(R) HPV Assay ([employer] This assay detects E6/E7 viral messenger RNA (mRNA) from 14 high-risk HPV types (16,18,31,33,35,39,45,51, 52,56,58,59,66,68). For additional information please refer to: http://education.[employer]/faq/RXH187f6 (This link is being provided for informational/ educational purposes only.) The analytical performance characteristics of this assay have been determined by [facility] [place], [place]. The modifications have not been cleared or approved by the FDA. This assay has been validated pursuant to the CLIA regulations and is used for clinical purposes. Please note: Effective 07/09/2016, HPV testing will be performed using [employer]'s APTIMA test which targets mRNA. Detecting mRNA instead of DNA, as in older methods, offers significant improvements in specificity. 08/22/2018 11:1 5 AM EDT us Nahomy Patino DO HISTORICAL/NON ORDERABLE LAB S Final Result [facility] [address] from Last 3 Months or Most Recently Relevant to Health Maintenance Additional Health Concerns Active Problems Noted Date [...] 10/18/2025 Patient has chronic kidney disease 10/18/2025 Insurance [facility] C3 Care Teams Welder First Class Relationship Specialty Start Date End Date Nahomy Patino DO [address] [place] [address] PCP - General Family Medicine 10/28/18
--- OUTSIDE RECORDS SUMMARY | 2025-10-19 12:41 | XMS_ITS | Encounter Summary ---
Author Organization [employer] Address [address] [facility] 7[address] [place] [address] Care Team Providers Care Special Education Supervisor Name Role Phone Nahomy Patino Primary Care Provider [phone] Encounter Details Date Type Department Care Team (Latest Contact Info) Description 10/18/2025 Travel Social History Tobacco Use Types Packs/Day [...] Description 11/17/2025 9:00 AM EST Medication Management [address] [address] Eva Gould, JoannaD [address] [place] [address] 11/19/2025 11:00 AM EST Office Visit [address] [address] Nahomy Patino DO [address] [place] [address] 11/24/2025 8:30 AM EST Clinical Support [address] [address] Farnaz Miguel RN documented as of this [...] Care Plan Weekly blood pressure task No JeancarlosaguiAndrea chery Weekly blood pressure task Care Plan Weekly blood pressure task No SantcristianaguiAndrea chery Patient has chronic kidney disease Care Plan Patient has chronic kidney disease No JoeuiAndrea chery Patient has chronic kidney disease Care Plan Patient has chronic kidney disease No JoeuiAndrea chery Weekly blood pressure task Care Plan [...] blood pressure task No Farnaz Miguel, JULIA Weekly blood pressure task Care Plan Weekly blood pressure task No Farnaz Miguel, JULIA Patient has chronic kidney disease Care Plan Patient has chronic kidney disease No Farnaz Miguel, JULIA Patient has chronic kidney disease Care Plan Patient has chronic kidney disease No Farnaz Miguel, RN Weekly blood pressure task Care Plan Weekly blood pressure task No Farnaz Miguel, RN Weekly blood pressure task Care Plan Weekly blood pressure task No Farnaz Miguel, JULIA Patient has chronic kidney disease Care Plan Patient has chronic kidney disease No Farnaz Miguel, RN Patient has chronic kidney disease Care [...] documented as of this encounter Care Teams Special Education Supervisor Relationship Specialty Start Date End Date Nahomy Patino DO [address] [place] [phone] PCP - General Family Medicine 10/28/18 documented as of this encounter
--- OUTSIDE RECORDS SUMMARY | 2025-10-19 12:41 | XMS_ITS | Encounter Summary ---
Author Organization [employer] Address [address] [facility] 7[address] [place] [address] Care Team Providers Care Chairman And Ceo Name Role Phone Nahomy Patino Primary Care Provider + [phone] Reason for Visit * Reason Comments Med Refill Encounter Details Date Type Department Care Team (Late st Contact Info) Description 01/29/2024 Refill [facility] [address] [phone] Name, MD Dustin [address] [place], [place] [phone] Social History Tobacco Use Types Packs/Day Years [...] Description 11/17/2025 9:00 AM EST Medication Management [address] [address] Eva Gould PharmD [address] [place] [phone] 11/19/2025 11:00 AM EST Office Visit [address] [address] Nahomy Patino DO [address] [place] [phone] 11/24/2025 8:30 AM EST Clinical Support [address] [address] Farnaz Miguel RN documented as of this encounter Visit Diagnoses Not on filedocumented in this encounter Additional Health Concerns Assessment Noted Time PHQ-9 Depression Total Score: 0 10/08/20 23 9:07 AM EST documented as of this encounter Care Teams Chairman And Ceo Relationship Specialty Start Date End Date Nahomy Patino DO [address] [place] [phone] PCP - General Family Medicine 10/28/18 documented as of this encounter
== END 2025-10-18 11:20 | disposition home or self-care (01) ==
LOC: HO.HHCLNP 11:19
PROVIDERS: Visit Provider Family Medicine
DX: Z79.891 Long term (current) use of opiate analgesic (principal)
CPT/HCPCS: 36415; 80353